=== PATIENT | female | born 1965 | race Caucasian/White ===

== ENCOUNTER 2016-04-11 10:41 | Outpatient (CLI) | payer OTHER | END 2016-04-11 10:42 | disposition home or self-care (01) | DX: M17.11 Unilateral primary osteoarthritis, right knee (principal) ==

== ENCOUNTER 2016-04-13 15:42 | Outpatient (CLI) | payer OTHER | END 2016-04-13 15:43 | disposition home or self-care (01) | DX: Z12.31 Encounter for screening mammogram for malignant neoplasm of breast (principal); Z80.3 Family history of malignant neoplasm of breast ==

== ENCOUNTER 2016-04-14 10:30 | Outpatient (CLI) | payer OTHER | END 2016-04-14 10:31 | disposition home or self-care (01) | DX: L03.211 Cellulitis of face (principal) ==

== ENCOUNTER 2016-04-25 10:43 | Outpatient (CLI) | payer OTHER | END 2016-04-25 10:44 | disposition home or self-care (01) | DX: G47.8 Other sleep disorders (principal); R06.83 Snoring; R53.83 Other fatigue ==

== ENCOUNTER 2016-05-11 15:15 | Outpatient (CLI) | payer OTHER | END 2016-05-11 15:16 | disposition home or self-care (01) | DX: R07.89 Other chest pain (principal) ==

== ENCOUNTER 2016-07-18 07:49 | Outpatient (CLI) | payer OTHER | END 2016-07-18 07:50 | disposition home or self-care (01) | DX: D17.1 Benign lipomatous neoplasm of skin and subcutaneous tissue of trunk (principal) ==

== ENCOUNTER 2017-07-17 08:00 | Outpatient (CLI) | payer OTHER ==
[2017-07-17 12:49] LABS: BASOPHILS # (AUTO) 0.1 10^3/uL (0.0-0.1); BASOPHILS % (AUTO) 0.9 %; EOSINOPHILS # (AUTO) 0.1 10^3/uL (0.0-0.7); EOSINOPHILS % (AUTO) 1.6 %; HGB - HEMOGLOBIN 12.6 g/dL (12.0-16.0); LYMPHOCYTES # (AUTO) 1.4 10^3/uL (1.5-3.5); MEAN CORPUSCULAR HEMOGLOBIN 27.4 pg (27.0-31.0); MEAN CORPUSCULAR HGB CONC 32.7 g/dL (32.0-36.0); MEAN CORPUSCULAR VOLUME 83.7 fL (81.0-99.0); MEAN PLATELET VOLUME 8.3 fL (7.9-10.8); MONOCYTES # (AUTO) 0.6 10^3/uL (0.0-1.0); NEUTROPHILS # (AUTO) 4.1 10^3/uL (1.5-6.6); NEUTROPHILS % (AUTO) 65.5 %; PLT - PLATELET COUNT 276 10^3/uL (130-450); RED CELL DISTRIBUTION WIDTH 15.7 % (12.0-15.0); WHITE BLOOD COUNT 6.3 x10^3/uL (4.8-10.8)
[2017-07-17 12:56] LABS: ALBUMIN 3.7 g/dL (3.2-5.5); ALBUMIN/GLOBULIN RATIO 1.2 (1.0-2.2); ALKALINE PHOSPHATASE 60 IU/L (42-121); ALT ALANINE AMINOTRANSFERASE 15 IU/L (10-60); AST ASPARTATE AMINOTRANSFERASE 14 IU/L (10-42); BILIRUBIN,TOTAL 0.6 mg/dL (0.2-1.0); BUN - BLOOD UREA NITROGEN 15 mg/dL (6-20); CALCIUM 8.4 mg/dL (8.5-10.3); CARBON DIOXIDE - CO2 30 mmol/L (21-32); CHLORIDE 102 mmol/L (101-111); CHOLESTEROL 196 mg/dL; CREATININE 0.6 mg/dL (0.4-1.0); GFR - MDRD 106 (>89); GLUCOSE 106 mg/dL (70-100); HDL CHOLESTEROL 39 mg/dL; LDL CHOLESTEROL,CALCULATED 130 mg/dL; LDL/HDL RATIO 3.3 (<4.4); SODIUM 138 mmol/L (135-145); TOTAL PROTEIN 6.8 g/dL (6.7-8.2); VLDL CHOLESTEROL 27 mg/dL
[2017-07-17 13:00] LABS: HB2 TOTAL 13.6 g/dL; HEMOGLOBIN A1C 0.49 g/dL; HEMOGLOBIN A1C % 5.4 % (4.6-6.2)
== END 2017-07-17 08:01 | disposition home or self-care (01) ==
LOC: LAB.WCP 08:00
PROVIDERS: ATTEND Family Medicine
DX: I10 Essential (primary) hypertension (principal); E66.01 Morbid (severe) obesity due to excess calories
CPT/HCPCS: 36415; 80053; 80061; 83036; 83721; 84443; 85025

== ENCOUNTER 2017-08-02 23:03 | Emergency (ER) | payer OTHER ==
[2017-08-02] MEDS ORDERED: diphenhydrAMINE INJ 50 MG/ML VIAL IVP STA (23:18)
[2017-08-02] MEDS ORDERED: SODIUM CHLORIDE 0.9% 1,000 ML IV ONE (23:18)
[2017-08-02] MEDS ORDERED: KETOROLAC 60 MG/2 ML VIAL IVP STA (23:18)
[2017-08-02] MEDS ORDERED: ACETAMINOPHEN 325 MG TABLET PO STA (23:18)
[2017-08-02] MEDS ORDERED: METOCLOPRAMIDE 10 MG/2 ML VIAL IVP STA (23:18)
--- NOTE | 2017-08-03 01:08 | ED Physician Documentation ---
PD HPI HEADACHE - Stated complaint Stated Complaint: MIGRAINE - Chief complaint Chief Complaint: Neuro - History obtained from History obtained from: Patient, Family - History of Present Illness Timing - onset: Today Timing - onset during: Rest Timing - details: Gradual onset, Still present Worst headache ever?: Worst headache ever? (yes) Location: Global Quality: Aching. No: Thunderclap Associated symptoms: Nausea. No: Fever, Stiff neck, Vomiting, Weakness, Syncope , Seizure Worsened by: Light, Noise Similar symptoms before: No diagnosis Recently seen: Not recently seen - Additional information Additional information: Patient is a 51 year old female with a history of headaches who is presenting to the emergency department for a headache. patient states that she was at work when she started to develop a dull headache. patient reports that that pain got progressively worse so she went home. She tried taking an excedrin but the pain did not go away so she came to the emergency department for evaluation. Review of Systems Constitutional: denies: Fever, Chills, Myalgias Eyes: reports: Photophobia Cardiac: denies: Chest pain / pressure, Palpitations GI: reports: Nausea. denies: Vomiting : reports: Reviewed and negative Skin: denies: Rash, Lesions Musculoskeletal: denies: Neck pain Neurologic: reports: Headache. denies: Generalized weakness, Focal weakness, Numbness, Syncope, Altered mental status, Head injury, LOC Immunocompromised: denies: Immunocompromised PD PAST MEDICAL HISTORY - Past Medical History Cardiovascular: Hypertension, High cholesterol Psych: Depression, Anxiety - Past Surgical History Past Surgical History: Yes - Present Medications Home Medications: Ambulatory Orders Medication Instructions Recorded Confirmed Carvedilol [Coreg] 12.5 mg PO DAILY 07/26/12 01/05/15 Hydrochlorothiazide 25 mg PO DAILY 07/26/12 01/05/15 Lorazepam [Ativan] 1 mg PO Q6-8H PRN #20 tablet 07/26/12 01/05/15 Potassium Chloride 10 meq PO DAILY #20 capsule.er 07/26/12 01/05/15 Statin 01/05/15 01/05/15 - Allergies Allergies/Adverse Reactions: Allergies Allergy/AdvReac Type Severity Reaction Status Date / Time No Known Drug Allergies Allergy Verified 08/02/17 23:10 - Social History Does the pt smoke?: No Smoking Status: Never smoker Does the pt drink ETOH?: Yes Does the pt have substance abuse?: No - Immunizations Immunizations are current?: Yes - POLST Patient has POLST: No PD ED PE NORMAL - HEENT HEENT: Atraumatic - Neck Neck: Supple, no meningeal sign - Cardiac Cardiac: RRR - Respiratory Respiratory: No respiratory distress - Abdomen Abdomen: Soft - Derm Derm: Normal color, Warm and dry, No rash - Extremities Extremities: No deformity - Neuro Neuro: Alert and oriented X 3, 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, No motor deficit, No sensory deficit, Normal speech Eye Opening: Spontaneous Motor: Obeys Commands Verbal: Oriented GCS Score: 15 PD ED PE EXPANDED - General General: Alert, In Pain - HEENT HEENT: Dry mucous membranes Results - Vitals Vitals: Vital Signs - 24 hr 08/02/17 08/03/17 23:06 01:09 Temperature 36.9 C 36.8 C Heart Rate 88 78 Respiratory 22 18 Rate Blood Pressure 162/83 H 142/74 H O2 Saturation 96 99 Oxygen O2 Source Room air PD MEDICAL DECISION MAKING - ED course Complexity details: reviewed old records, reviewed results, re-evaluated patient , considered differential, d/w patient, d/w family ED course: Patient was seen and examined at bedside. IV access was gained and patient was treated with toradol, reglan, benadryl, tylenol and a liter of fluid. Upon re- evaluation patient was feeling much better. patient stated that her headache had resolved and that she wanted to go home. While serious etiologies of the patient's headache including SAH and meningitis were considered they were unlikely at this time. patient required no further work up at this time and was stable for discharge with outpatient follow up. Departure - Departure Disposition: 01 Home, Self Care Clinical Impression: Migraine Condition: Good Instructions: ED Headache Migraine Follow-Up: primary,care provider [Other] - Tomorrow Comments: Your symptoms today are being caused by a migraine headache. Two of the biggest triggers are dehyration and lack of sleep. Make sure you stay well hydrated and get plenty of rest. You should keep a headache journal if your symptoms become more frequent. You should follow up with your doctor. You may return to the emergency department at any time for new, worsening or uncontrollable symptoms. Discharge Date/Time: 08/03/17 01:14
[2017-08-03 01:09] VITALS: BP 142/74
== END 2017-08-03 01:14 | disposition home or self-care (01) ==
LOC: ED 23:03
DX: G43.909 Migraine, unspecified, not intractable, without status migrainosus (principal); I10 Essential (primary) hypertension
CPT/HCPCS: 96361; 96374; 96375; 99283; 99284; A9270; J1200; J2765

== ENCOUNTER 2018-07-10 11:26 | Outpatient (CLI) | payer OTHER ==
--- NOTE | 2018-07-10 12:43 | Mammography Report ---
Reason: SCREENING MAMMO Procedure Date: 07/10/2018 Accession Number: [id number] / [id number] Procedure: MGN - Screening Mammo Dig Bilat CPT Code: FULL RESULT: EXAM: Screening Mammo Dig Bilat DATE: 07/10/2018 11:59 AM CLINICAL HISTORY: Mother with history of breast cancer. For routine screening. TECHNIQUE: (B) - Bilateral CC and MLO views were obtained. COMPARISON: 04/13/2016, 11/13/2014 and 05/01/2013 PARENCHYMAL PATTERN: (A) - The breasts demonstrate scattered fibroglandular densities bilaterally. FINDINGS: There is no significant interval change. There are no suspicious masses, calcifications, or areas of distortion. IMPRESSION: Negative examination. BI-RADS category 1. RECOMMENDATION: (ANNUAL) - Recommend routine annual screening mammography. BI-RADS CATEGORY: (1) - Negative. STANDARD QUALIFYING STATEMENTS: 1. This examination was not reviewed with the aid of Computer-Aided Detection (CAD). 2. A negative or benign imaging report should not preclude biopsy if clinically suspicious findings are present. 3. Dense breasts may obscure an underlying neoplasm. 4. This examination was reviewed without the aid of 3D breast imaging (tomosynthesis).
== END 2018-07-10 11:27 | disposition home or self-care (01) ==
LOC: DI.N 11:26
DX: Z12.31 Encounter for screening mammogram for malignant neoplasm of breast (principal); Z80.3 Family history of malignant neoplasm of breast
CPT/HCPCS: 77067

== ENCOUNTER 2019-04-22 07:03 | Outpatient (CLI) | payer OTHER ==
[2019-04-22 11:55] LABS: BASOPHILS % (AUTO) 0.8 %; EOSINOPHILS # (AUTO) 0.1 10^3/uL (0.0-0.7); EOSINOPHILS % (AUTO) 2.2 %; HGB - HEMOGLOBIN 13.9 g/dL (12.0-16.0); LYMPHOCYTES # (AUTO) 1.4 10^3/uL (1.5-3.5); LYMPHOCYTES % (AUTO) 27.1 %; MEAN CORPUSCULAR HEMOGLOBIN 29.1 pg (27.0-31.0); MEAN PLATELET VOLUME 10.1 fL (7.9-10.8); MONOCYTES # (AUTO) 0.8 10^3/uL (0.0-1.0); MONOCYTES % (AUTO) 14.9 %; NEUTROPHILS # (AUTO) 2.8 10^3/uL (1.5-6.6); NEUTROPHILS % (AUTO) 54.8 %; PLT - PLATELET COUNT 246 10^3/uL (130-450); RED BLOOD COUNT 4.77 10^6/uL (4.20-5.40); RED CELL DISTRIBUTION WIDTH 14.3 % (12.0-15.0); WHITE BLOOD COUNT 5.1 x10^3/uL (4.8-10.8)
[2019-04-22 12:29] LABS: HB2 TOTAL 13.7 g/dL; HEMOGLOBIN A1C 0.46 g/dL; HEMOGLOBIN A1C % 5.2 % (4.6-6.2)
[2019-04-22 12:37] LABS: ALBUMIN 3.8 g/dL (3.2-5.5); ALBUMIN/GLOBULIN RATIO 1.2 (1.0-2.2); ALKALINE PHOSPHATASE 54 IU/L (42-121); ALT ALANINE AMINOTRANSFERASE 20 IU/L (10-60); AST ASPARTATE AMINOTRANSFERASE 18 IU/L (10-42); BILIRUBIN,TOTAL 0.6 mg/dL (0.2-1.0); BUN - BLOOD UREA NITROGEN 21 mg/dL (6-20); CALCIUM 8.7 mg/dL (8.5-10.3); CARBON DIOXIDE - CO2 27 mmol/L (21-32); CHLORIDE 104 mmol/L (101-111); CHOL/HDL RATIO 4.2 (<4.4); CHOLESTEROL 201 mg/dL; CREATININE 0.6 mg/dL (0.4-1.0); GFR - MDRD 105 (>89); GLUCOSE 102 mg/dL (70-100); HDL CHOLESTEROL 48 mg/dL; LDL CHOLESTEROL,CALCULATED 136 mg/dL; LDL/HDL RATIO 2.8 (<4.4); SODIUM 139 mmol/L (135-145); TOTAL PROTEIN 7.1 g/dL (6.7-8.2); VLDL CHOLESTEROL 17 mg/dL
== END 2019-04-22 23:59 | disposition home or self-care (01) ==
LOC: LAB.WCP 07:03
PROVIDERS: ATTEND Family Medicine
DX: I10 Essential (primary) hypertension (principal); E66.01 Morbid (severe) obesity due to excess calories
CPT/HCPCS: 36415; 80053; 80061; 83036; 83721; 84443; 85025

== ENCOUNTER 2020-07-22 08:00 | Outpatient (CLI) | payer OTHER | END 2020-07-22 23:59 | disposition home or self-care (01) | LOC: LAB.N 08:00 | PROVIDERS: ATTEND Family Medicine | DX: N61.1 Abscess of the breast and nipple (principal) | CPT/HCPCS: 87070; 87077; 87181; 87205 ==

== ENCOUNTER 2020-12-22 10:18 | Outpatient (CLI) | payer OTHER ==
--- NOTE | 2020-12-23 09:33 | Mammography Report ---
BILATERAL DIGITAL SCREENING MAMMOGRAM 3D/2D: 12/22/2020 CLINICAL: Family history of breast cancer. Routine screening. Comparison is made to exams dated: 07/10/2018 mammogram, 04/13/2016 mammogram, 11/13/2014 mammogram, and mammogram - [facility]. There are scattered fibroglandular elements in vu th breasts. No significant masses, calcifications, or other findings are seen in either breast. There has been no significant interval change. IMPRESSION: NEGATIVE There is no mammographic evidence of malignancy. A 1 year screening mammogram is recommended. This exam was interpreted at Station ID: [id number]. NOTE: For mammograms, a report in lay terms will be sent to the patient. Approximately 15% of breast malignancies will not be visualized mammographically. In the management of a palpable breast mass, a negative mammogram must not discourage biopsy of a clinically suspicious lesion. Electronically Signed By: Gopal Diaz M.D., jr/silvana:12/22/2020 11:46:22 ACR BI-RADS Category 1: Negative 3341F PARENCHYMAL PATTERN: (A) - The breast(s) demonstrate(s) scattered fibroglandular densities. BI-RADS CATEGORY: (1) - 1 RECOMMENDATION: (ANNUAL) - Recommend routine annual screening mammography. [id number] 1 year screening LATERALITY: (B)
== END 2020-12-22 10:19 | disposition home or self-care (01) ==
LOC: DI.N 10:18
DX: Z12.31 Encounter for screening mammogram for malignant neoplasm of breast (principal); Z80.3 Family history of malignant neoplasm of breast

== ENCOUNTER 2021-02-04 16:40 | Outpatient (CLI) | payer OTHER | END 2021-02-04 23:59 | disposition critical access hospital (66) | LOC: EMS 16:40 | DX: R06.09 Other forms of dyspnea (principal); R53.83 Other fatigue; R10.9 Unspecified abdominal pain; K59.00 Constipation, unspecified; R14.0 Abdominal distension (gaseous) | CPT/HCPCS: A0425; A0427 ==

== ENCOUNTER 2021-02-04 17:03 | Emergency (ER) | payer OTHER ==
[2021-02-04 17:34] LABS: BASOPHILS # (AUTO) 0.1 10^3/uL (0.0-0.1); BASOPHILS % (AUTO) 0.7 %; EOSINOPHILS # (AUTO) 0.1 10^3/uL (0.0-0.7); EOSINOPHILS % (AUTO) 1.6 %; HCT - HEMATOCRIT 39.5 % (37.0-47.0); HGB - HEMOGLOBIN 11.4 g/dL (12.0-16.0); LYMPHOCYTES % (AUTO) 14.1 %; MEAN CORPUSCULAR HGB CONC 28.9 g/dL (32.0-36.0); MEAN CORPUSCULAR VOLUME 86.6 fL (81.0-99.0); MEAN PLATELET VOLUME 9.1 fL (7.9-10.8); MONOCYTES # (AUTO) 0.8 10^3/uL (0.0-1.0); MONOCYTES % (AUTO) 11.1 %; NEUTROPHILS # (AUTO) 4.9 10^3/uL (1.5-6.6); NEUTROPHILS % (AUTO) 72.2 %; PLT - PLATELET COUNT 253 10^3/uL (130-450); RED BLOOD COUNT 4.56 10^6/uL (4.20-5.40); RED CELL DISTRIBUTION WIDTH 18.1 % (12.0-15.0); WHITE BLOOD COUNT 6.8 x10^3/uL (4.8-10.8)
[2021-02-04 17:36] LABS: SLIDE REVIEW? Indicated
--- NOTE | 2021-02-04 17:44 | ED Physician Documentation ---
History of Present Illness - Stated complaint Stated Complaint: SOA - Chief complaint Chief Complaint: Abd Pain - History obtained from History obtained from: Patient - History of Present Illness Timing: How many weeks ago (2) Pain level max: 5 Pain level now: 5 - Additonal information Additional information: Patient is a 55-year-old female who presents to the emergency department after being seen at the walk-in clinic earlier today for 2 weeks of abdominal pain and bloating. She is super morbidly obese. She has been on a keto diet and weight loss teas for the past 2 weeks. States she feels constipated. At the walk-in clinic they found her to be hypoxic and sent her here. Patient is not short of breath. No difficulty walking. Has not had similar symptoms previously. Has never had a sleep study. No fevers. No chills. No coughing. Review of Systems Ten Systems: 10 systems reviewed and negative Constitutional: denies: Fever, Chills Nose: denies: Rhinorrhea / runny nose, Congestion Respiratory: denies: Cough, Wheezing GI: denies: Vomiting, Diarrhea Skin: denies: Rash Musculoskeletal: denies: Neck pain, Back pain Neurologic: denies: Headache PD PAST MEDICAL HISTORY - Past Medical History Cardiovascular: Hypertension, High cholesterol Psych: Depression, Anxiety - Past Surgical History Past Surgical History: Yes - Present Medications Home Medications: Ambulatory Orders Medication Instructions Recorded Confirmed Carvedilol [Coreg] 12.5 mg PO DAILY 07/26/12 01/05/15 Hydrochlorothiazide 25 mg PO DAILY 07/26/12 01/05/15 Lorazepam [Ativan] 1 mg PO Q6-8H PRN #20 tablet 07/26/12 01/05/15 Potassium Chloride 10 meq PO DAILY #20 capsule.er 07/26/12 01/05/15 Statin 01/05/15 01/05/15 - Allergies Allergies/Adverse Reactions: Allergies Allergy/AdvReac Type Severity Reaction Status Date / Time No Known Drug Allergies Allergy Verified 02/04/21 17:14 - Social History Does the pt smoke?: No Smoking Status: Never smoker Does the pt drink ETOH?: Yes Does the pt have substance abuse?: No - Immunizations Immunizations are current?: Yes - POLST Patient has POLST: No PD ED PE NORMAL - Vitals Vital signs reviewed: Yes - General General: Alert and oriented X 3, No acute distress - HEENT HEENT: Moist mucous membranes - Neck Neck: Supple, no meningeal sign - Cardiac Cardiac: RRR, Strong equal pulses - Respiratory Respiratory: No respiratory distress, Clear bilaterally - Abdomen Abdomen: Soft, Non tender, Non distended - Derm Derm: Warm and dry - Extremities Extremities: Other (2+ pitting edema bilateral lower extremities. There is also pitting edema on the abdomen.) - Neuro Neuro: Alert and oriented X 3 - Psych Psych: Normal mood, Normal affect Results - Vitals Vitals: Vital Signs - 24 hr 02/04/21 02/04/21 02/04/21 17:05 17:44 17:56 Temperature 36.2 C L Heart Rate 79 74 Respiratory 17 22 Rate Blood Pressure 184/112 H 181/96 H O2 Saturation 75 L 86 L 02/04/21 02/04/21 18:14 18:30 Temperature 36.5 C 36.5 C Heart Rate 72 91 Respiratory 15 25 H Rate Blood Pressure 180/98 H 200/77 H O2 Saturation 82 L 84 L Oxygen O2 Source Room air - EKG (time done) 1741 Rate: Rate (enter#) (69) Rhythm: NSR [place]: Normal Intervals: Normal GA QRS: Normal Ischemia: Normal ST segments - Labs Labs: Laboratory Tests 02/04/21 02/04/21 02/04/21 17:29 17:29 17:29 WBC 6.8 RBC 4.56 Hgb 11.4 L Hct 39.5 MCV 86.6 MCH 25.0 L MCHC 28.9 L RDW 18.1 H Plt Count 253 MPV 9.1 Neut # (Auto) 4.9 Lymph # (Auto) 1.0 L Dunn # (Auto) 0.8 Eos # (Auto) 0.1 Baso # (Auto) 0.1 Absolute Nucleated RBC 0.00 Nucleated RBC % 0.0 Manual Slide Review Indicated Platelet Estimate NORMAL (130-450,000) Platelet Morphology NORMAL APPEARANCE RBC Morph Micro Appear 1+ POIKILOCYTOSIS D-Dimer Bld Gas Analysis Time Sample Site ABG pH ABG pCO2 ABG pO2 ABG HCO3 ABG Total CO2 ABG O2 Saturation ABG Base Excess Juan Jose Test Room Air Sodium 143 Potassium 3.8 Chloride 99 L Carbon Dioxide 34 H Anion Gap 10.0 BUN 21 H Creatinine 0.9 Estimated GFR (MDRD) 65 L Glucose 100 Calcium 8.9 Total Bilirubin 0.5 AST 15 ALT 19 Alkaline Phosphatase 49 Troponin I High Sens 27.1 H* B-Natriuretic Peptide Total Protein 6.8 Albumin 3.7 Globulin 3.1 Albumin/Globulin Ratio 1.2 Lipase 24 02/04/21 02/04/21 02/04/21 17:29 17:47 18:06 WBC RBC Hgb Hct MCV MCH MCHC RDW Plt Count MPV Neut # (Auto) Lymph # (Auto) Dunn # (Auto) Eos # (Auto) Baso # (Auto) Absolute Nucleated RBC Nucleated RBC % Manual Slide Review Platelet Estimate Platelet Morphology RBC Morph Micro Appear D-Dimer 636.9 H Bld Gas Analysis Time 1811 Sample Site LEFT RADIAL ABG pH 7.37 ABG pCO2 55 H ABG pO2 42 L* ABG HCO3 31.1 H ABG Total CO2 32.8 H ABG O2 Saturation 75 L* ABG Base Excess 4.7 H Juan Jose Test POSITIVE Room Air YES Sodium Potassium Chloride Carbon Dioxide Anion Gap BUN Creatinine Estimated GFR (MDRD) Glucose Calcium Total Bilirubin AST ALT Alkaline Phosphatase Troponin I High Sens B-Natriuretic Peptide 534 H Total Protein Albumin Globulin Albumin/Globulin Ratio Lipase - Rads (name of study) chest X-ray Radiology: Final report received, EMP read contemporaneously, See rad report PD MEDICAL DECISION MAKING - ED course Complexity details: reviewed results, re-evaluated patient, considered differential, d/w patient ED course: Patient is a super morbidly obese 55-year-old female. Likely with obesity hypoventilation syndrome. Likely has sleep apnea as well that is undiagnosed. Does not use CPAP at home. She does have excessive daytime sleepiness, this has been worsening recently. She falls asleep easily at her desk during the day. She has a significantly elevated BNP, especially considering that her BMI is so high, the BNP is likely falsely low because of her increased neprilysin in her visceral fat. She has never been diagnosed with CHF before, she will likely need an echocardiogram. She would likely benefit from a sleep study as well. The cause of her heart failure could be secondary to her sleep apnea. At the time of signout, a CT angiogram of the chest is pending for possible PE. Patient will likely need transfer for new onset heart failure, hypoxia, diuresis and cardiac echo. Patient is signed out to the oncoming emergency department physician. Cardiomegaly and scattered ill-defined and groundglass opacities likely reflecting pulmonary edema. Recommend clinical and laboratory correlation to exclude underlying infection. Possible small left pleural effusion. Departure - Departure Clinical Impression: Carbon dioxide retention, Hypoxia Heart failure Qualifiers: Heart failure type: unspecified Heart failure chronicity: acute Qualified Code(s): I50.9 - Heart failure, unspecified Condition: Stable
[2021-02-04 17:51] LABS: ALBUMIN 3.7 g/dL (3.2-5.5); ALBUMIN/GLOBULIN RATIO 1.2 (1.0-2.2); BILIRUBIN,TOTAL 0.5 mg/dL (0.2-1.0); CALCIUM 8.9 mg/dL (8.5-10.3); CREATININE 0.9 mg/dL (0.4-1.0); POTASSIUM 3.8 mmol/L (3.5-5.0); TOTAL PROTEIN 6.8 g/dL (6.7-8.2)
[2021-02-04 17:53] LABS: PLATELET ESTIMATE, MANUAL NORMAL (130-450,000) (NORMAL); PLATELET MORPHOLOGY NORMAL APPEARANCE (NORMAL)
--- NOTE | 2021-02-04 17:54 | XRAY Report ---
PROCEDURE: Chest 1 View X-Ray INDICATIONS: hypoxia TECHNIQUE: One view of the chest was acquired. COMPARISON: 05/11/2016 FINDINGS: Surgical changes and devices: None. Lungs and pleura: No pneumothorax. Ill-defined widespread bilateral upper and lower lobe groundglass opacities and patchy perihilar consolidative opacity. There is retrocardiac opacity and cannot exclu de small left pleural effusion Mediastinum: Markedly enlarged cardiac silhouette Bones and chest wall: No suspicious bony lesions. Overlying soft tissues appear unremarkable. IMPRESSION: Cardiomegaly and scattered ill-defined and groundglass opacities likely reflecting pulmonary edema. R ecommend clinical and laboratory correlation to exclude underlying infection. Possible small left pleural effusion. Reviewed by: Conrado Harrell MD on 02/04/2021 5:52 PM PST Approved by: Conrado Harrell MD on 02/04/2021 5:52 PM [facility] Station ID: [id number]
[2021-02-04 18:14] LABS: ABG BASE EXCESS 4.7 mmol/L (-2.0-3.0); ABG HCO3 31.1 mmol/L (22.0-26.0); ABG PCO2 55 mmHg (34-45); ABG PH 7.37 (7.35-7.45); ABG TCO2 32.8 MMOL/L (21.0-29.0)
[2021-02-04 18:15] LABS: ALLEN TEST POSITIVE
[2021-02-04 18:17] LABS: ABG PO2 42 mmHg (80-100)
[2021-02-04 18:18] LABS: ABG OXYGEN SATURATION 75 % (94-98)
[2021-02-04] MEDS ORDERED: IOVERSOL 320 100 ML VIAL IVP ONE ×2 (18:41→19:13)
[2021-02-04] MEDS ORDERED: FUROSEMIDE 40 MG/4 ML VIAL IVP STA (18:51)
[2021-02-04 18:58] LABS: B. PARAPERTUSSIS- RESP PCR PAN NOT DETECTED; B. PERTUSSIS- RESP PCR PANEL NOT DETECTED; C. PNEUMONIAE- RESP PCR PANEL NOT DETECTED; CORONAVIRUS 229E-RESP PCR NOT DETECTED; CORONAVIRUS HKU1-RESP PCR NOT DETECTED; CORONAVIRUS NL63-RESP PCR NOT DETECTED; CORONAVIRUS OC43-RESP PCR NOT DETECTED; HUMAN METAPNEUMOVIRUS NOT DETECTED; INFLUENZA A- RESP PCR PANEL NOT DETECTED; INFLUENZA B - RESP PCR PANEL NOT DETECTED; M. PNEUMONIAE- RESP PCR PANEL NOT DETECTED; PARAINFLUENZA VIRUS 1 NOT DETECTED; PARAINFLUENZA VIRUS 2 NOT DETECTED; PARAINFLUENZA VIRUS 3 NOT DETECTED; PARAINFLUENZA VIRUS 4 NOT DETECTED; RHINOVIRUS/ENTEROVIRUS NOT DETECTED; RSV- RESP PCR PANEL NOT DETECTED; SARS-CoV-2 -RESP PCR PANEL NOT DETECTED
--- NOTE | 2021-02-04 20:06 | CT Report ---
PROCEDURE: ANGIO CHEST W/WO INDICATIONS: elevated d-dimer, hypoxia CONTRAST: IV CONTRAST: Optiray 320 ml: 80 PO CONTRAST: *NO PO CONTRAST TECHNIQUE: After the administration of intravenous contrast, 5 mm thick sections acquired from the pulmonary api shon to the posterior costophrenic angles. 7 mm thick coronal MIP reformats were acquired. For radia tion dose reduction, the following was used: automated exposure control, adjustment of mA and/or kV according to patient size. COMPARISON: None. FINDINGS: Markedly suboptimal evaluation secondary to body habitus. CHEST: Lungs: Scattered subsegmental scarring/atelectasis. No acute consolidation. Diffuse peribronchial cuf fing suggestive of nonspecific bronchitis and/or reactive airways disease. Pleura: No pleural effusion or pneumothorax. Heart: Normal. Lymph nodes: Normal. Thyroid: Grossly unremarkable Aorta: Normal in size. Pulmonary arteries: Suboptimal evaluation secondary to heterogeneous opacification as well as body adames bitus and associated noise artifact. No large or gross central filling defect however the lobar and s egmental pulmonary arteries not well evaluated Esophagus: Normal. Bones: Diffuse spondolytic changes and facet arthropathy. No compression fracture. Upper abdomen: Normal. IMPRESSION: No gross or large filling defect identified in the central pulmonary arteries however markedly subopt imal evaluation secondary to body habitus and poor contrast opacification of the lobar and segmental pulmonary arteries. Consider further risk stratification with lower extremity ultrasound for DVT as c linically necessary. Scattered subsegmental scarring/atelectasis. No acute consolidation. CLINICAL RECOMMENDATION STATEMENTS: In patients <35 years with an ITN detected on CT, MRI, or extrathyroidal ultrasound, the Committee re commends further evaluation with dedicated thyroid ultrasound if the nodule is "e1 cm and has no susp icious imaging features, and if the patient has normal life expectancy. In patients "e35 years with an ITN detected on CT, MRI, or extrathyroidal ultrasound, the Committee r ecommends further evaluation with dedicated thyroid ultrasound if the nodule is "e1.5 cm and has no s uspicious imaging features, and if the patient has normal life expectancy. (ACR, 2014) Reviewed by: Conrado Watt MD on 02/04/2021 8:05 PM PST Approved by: Conrado Watt MD on 02/04/2021 8:05 PM PST Station ID: [id number]
[2021-02-05 10:12] LABS: CARBOXYHEMOGLOBIN VENOUS 2.9 % (0-1.5); HEMOGLOBIN TOTAL, VENOUS WB 11.8 g/dL (12.0-18.0); METHEMOGLOBIN VENOUS 0.4 % (0-1.5)
[2021-02-05 10:13] LABS: VBG BASE EXCESS 6.9 mmol/L (-2 - +2); VBG HCO3 35.7 mmol/L (23-28); VBG OXYGEN SATURATION 93.1 % (60-80); VBG PCO2 75.5 mmHg (41-51); VBG PH 7.293 (7.31-7.41); VBG PO2 69.5 mmHg (25-47); VBG TOTAL CO2 38.1 mmol/L (24-29)
--- NOTE | 2021-02-05 10:27 | ED Physician Documentation ---
ED Addendum - Addendum Addendum: 02/05/21 10:26 Care assumed from overnight ED MD at shift change. Briefly this is a [age]-year-old woman who has no shortness of breath but was referred in for low pulse oximetry of unclear acuity. Found to have CO2 retention. D-dimer was high but subsequently CAT scan of the chest was negative although limited. Yesterday ABG was 7.37, 55, 42. Venous blood gas repeated this morning 7.29, 75, 69. Also noted that Dr. Rios had ordered a carboxyhemoglobin panel but it was not run, this morning her carboxyhemoglobin is 2.9. Discussed with patient. She does not seem narcotize to per se. She is sitting in bed comfortably looking at her phone. She does not appear tachypneic. We discussed putting her on BiPAP but discussed that if she were transferred, most facilities would require her to be in an ICU setting which she refused. She would like to go home. We will retrial her road test with pulse oximetry to see if her desaturations are better than yesterday. 02/05/21 11:01 Since the patient wanted to go home I asked the nurse to ambulate her off of supplemental oxygen. She quickly went down into the 40s on pulse oximetry. Discussed with her that these numbers mandated work-up and admission and she is agreeable. Recheck of troponin from last night is flat, 27 -> 24 -> 25 02/05/21 16:[address] word from Dr. Montalvo at [facility] that the patient was to be accepted to [facility] by Dr. Calles. Cobras are completed. She is stable for transport. Diagnosis: 1. CO2 retention 2. Hypoxemia 3. Morbid obesity Disposition: Transferred to [facility] for specialty care Condition: Fair
[2021-02-05 18:40] VITALS: BP 148/69
== END 2021-02-05 19:11 | disposition short-term general hospital (02) ==
LOC: EDUNIT# → ED 17:03
DX: E87.2 Acidosis (principal); R09.02 Hypoxemia; I11.0 Hypertensive heart disease with heart failure; I50.9 Heart failure, unspecified; E66.01 Morbid (severe) obesity due to excess calories; Z68.44 Body mass index [BMI] 60.0-69.9, adult; Z20.822 Contact with and (suspected) exposure to COVID-19
CPT/HCPCS: 0202U; 36415; 36600; 71045; 71275; 80053; 82375; 82803; 83690; 83880; 84484; 85025; 85379; 93005; 96374; 99285; Q9967

== ENCOUNTER 2021-03-21 13:42 | Inpatient (IN) | payer OTHER ==
[2021-03-21] MEDS ORDERED: FUROSEMIDE 100 MG/10 ML VIAL IVP STA (14:33)
--- NOTE | 2021-03-21 14:36 | ED Physician Documentation ---
PD HPI DYSPNEA - Stated complaint Stated Complaint: SOA/FATIGUE - Chief complaint Chief Complaint: Resp - History obtained from History obtained from: Patient - History of Present Illness Timing - onset: How many days ago (3) Timing - onset during: Rest Timing - duration: Days (3) Timing - details: Gradual onset, Still present Inciting event(s): Other (called by PMD to come to ED with CO2 retention.) Improved by: O2, Rest Worsened by: Exertion, Coughing Associated symptoms: Cough, Bilateral edema Similar symptoms before: Diagnosis (CHF) Recently seen: Emergency Dept, Admitted - Additional information Additional information: Morbidly obese 55-year-old female has been diagnosed with congestive heart failure recently and she was admitted at [facility] where she was diuresed, started on BIPAP and discharged on BIPAP. She has been using the BIPAP about 3 hours per night and continues to be symptomatic with exertion and at rest. She was asked by her PMD to come to the ED for CO2 retention. She is using 3.5 liter O2 at home. Review of Systems Constitutional: denies: Fever Eyes: denies: Decreased vision Ears: denies: Ear pain Nose: denies: Congestion Throat: denies: Sore throat Cardiac: denies: Chest pain / pressure, Palpitations Respiratory: reports: Dyspnea. denies: Cough GI: denies: Abdominal Pain, Nausea, Vomiting : denies: Dysuria, Frequency Skin: denies: Rash Musculoskeletal: denies: Neck pain, Back pain, Extremity pain Neurologic: denies: Generalized weakness, Focal weakness, Numbness PD PAST MEDICAL HISTORY - Past Medical History Cardiovascular: Hypertension, High cholesterol Psych: Depression, Anxiety - Past Surgical History Past Surgical History: Yes - Present Medications Home Medications: Ambulatory Orders Medication Instructions Recorded Confirmed Carvedilol [Coreg] 25 mg PO DAILY 07/26/12 01/05/15 Aspirin [[place] Aspirin] 81 mg PO DAILY 02/04/21 02/04/21 Hydralazine HCl 50 mg PO TID 02/04/21 02/04/21 Losartan Potassium [Cozaar] 100 mg PO DAILY 02/04/21 02/04/21 Meloxicam [Mobic] 15 mg PO DAILY 02/04/21 02/04/21 [place]-3/Dha/Epa/Fish Oil [Fish Oil 1 cap PO BID 02/04/21 02/04/21 1,000 mg Softgel] - Allergies Allergies/Adverse Reactions: Allergies Allergy/AdvReac Type Severity Reaction Status Date / Time No Known Drug Allergies Allergy Verified 03/21/21 13:55 - Social History Does the pt smoke?: No Smoking Status: Never smoker Does the pt drink ETOH?: Yes Does the pt have substance abuse?: No - Immunizations Immunizations are current?: Yes - POLST Patient has POLST: No PD ED PE NORMAL - Vitals Vital signs reviewed: Yes (tachypneic and hypertensive ) - General General: Alert and oriented X 3, Well developed/nourished, Other (tachypneic at rest pale lips ) - HEENT HEENT: Atraumatic, PERRL, EOMI - Neck Neck: Supple, no meningeal sign, No bony TTP - Cardiac Cardiac: RRR, No murmur - Respiratory Respiratory: Other (tachypneic at rest with diminished breath sounds. 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, No motor deficit, No sensory deficit, Normal speech Eye Opening: Spontaneous Motor: Obeys Commands Verbal: Oriented GCS Score: 15 - Psych Psych: Normal mood, Normal affect Results - Vitals Vitals: Vital Signs - 24 hr 03/21/21 03/21/21 03/21/21 13:49 13:55 15:55 Temperature 36.3 C L 36.5 C Heart Rate 77 77 70 Respiratory 28 H 28 H 24 Rate Blood Pressure 156/89 H 156/89 H 160/80 H O2 Saturation 93 93 96 03/21/21 17:00 Temperature Heart Rate 73 Respiratory 22 Rate Blood Pressure 164/84 H O2 Saturation 97 Oxygen O2 Source Nasal cannula - EKG (time done) 1413 Rate: Rate (enter#) (80) Rhythm: NSR Intervals: Prolonged QT Other comments: Other comments (RSR') Compare to prior EKG: Changed from prior EKG (SPT 02-04-21 the QTc is closer to defined prolongation. ) Computer interpretation: Agree with computer - Labs Labs: Laboratory Tests 03/21/21 03/21/21 03/21/21 14:43 14:43 14:43 WBC 5.4 RBC 4.02 L Hgb 10.1 L Hct 36.2 L MCV 90.0 MCH 25.1 L MCHC 27.9 L RDW 22.2 H Plt Count 195 MPV 8.8 Neut # (Auto) 4.0 Lymph # (Auto) 0.8 L [place] # (Auto) 0.5 Eos # (Auto) 0.0 Baso # (Auto) 0.0 Absolute Nucleated RBC 0.00 Nucleated RBC % 0.0 VBG pH VBG pCO2 VBG pO2 VBG HCO3 VBG Total CO2 VBG O2 Saturation VBG Base Excess Sodium 144 Potassium 3.4 L Chloride 89 L Carbon Dioxide > 45 H* Anion Gap 9.0 BUN 14 Creatinine 0.6 Estimated GFR (MDRD) 104 Glucose 108 H Calcium 9.0 Total Bilirubin 1.1 H AST 15 ALT 12 Alkaline Phosphatase 56 B-Natriuretic Peptide 731 H Total Protein 7.0 Albumin 3.7 Globulin 3.3 Albumin/Globulin Ratio 1.1 Lipase 20 L 03/21/21 16:32 WBC RBC Hgb Hct MCV MCH MCHC RDW Plt Count MPV Neut # (Auto) Lymph # (Auto) [place] # (Auto) Eos # (Auto) Baso # (Auto) Absolute Nucleated RBC Nucleated RBC % VBG pH 7.349 VBG pCO2 86.2 H VBG pO2 26.5 VBG HCO3 46.4 H VBG Total CO2 49.1 H VBG O2 Saturation 49.3 L VBG Base Excess 17.0 H Sodium Potassium Chloride Carbon Dioxide Anion Gap BUN Creatinine Estimated GFR (MDRD) Glucose Calcium Total Bilirubin AST ALT Alkaline Phosphatase B-Natriuretic Peptide Total Protein Albumin Globulin Albumin/Globulin Ratio Lipase - Rads (name of study) chest Radiology: Prelim report reviewed (Impression: Cardiomegaly and increased vascularity suggestive of edema), EMP read indepedently, See rad report Procedures - IVC sono (time) 1428 Bedside IVC sono: IVC measures (cm) (2.62), IVC collapsed c insp (cm) (2.21), High CVP, Fluid overload PD MEDICAL DECISION MAKING - ED course Complexity details: reviewed old records, reviewed results, re-evaluated patient, considered differential, d/w patient ED course: 55-year-old female with a history of congestive heart failure is on oxygen at home and she has been asked to come into the emergency department for elevated carbon dioxide levels. She has had to increase her oxygen to maintain her saturations and here in the emergency department she is found to be in failure on interrogation of the inferior vena cava. Her vessel is 2.62 cm in diameter and only collapses to 2.2 cm with respiration. She is administered intravenous Lasix 80 mg. She has urine out put and feels some improved but is tachypneic at rest and with exertion. A venous blood gas is obtained and shows a pCO2 of 86.2 with a pH of 7.349. Respiratory therapy is consulted in the case and sets up the BIPAP in the ED. Hospitalist is consulted. Departure - Departure Disposition: ED Place in Observation Clinical Impression: Carbon dioxide retention Congestive heart failure Qualifiers: Heart failure type: unspecified Heart failure chronicity: acute on chronic Qualified Code(s): I50.9 - Heart failure, unspecified
[2021-03-21 14:53] LABS: BASOPHILS % (AUTO) 0.7 %; EOSINOPHILS % (AUTO) 0.7 %; HCT - HEMATOCRIT 36.2 % (37.0-47.0); HGB - HEMOGLOBIN 10.1 g/dL (12.0-16.0); LYMPHOCYTES # (AUTO) 0.8 10^3/uL (1.5-3.5); LYMPHOCYTES % (AUTO) 14.3 %; MEAN CORPUSCULAR HEMOGLOBIN 25.1 pg (27.0-31.0); MEAN CORPUSCULAR HGB CONC 27.9 g/dL (32.0-36.0); MEAN PLATELET VOLUME 8.8 fL (7.9-10.8); MONOCYTES # (AUTO) 0.5 10^3/uL (0.0-1.0); MONOCYTES % (AUTO) 9.5 %; NEUTROPHILS % (AUTO) 73.9 %; PLT - PLATELET COUNT 195 10^3/uL (130-450); RED BLOOD COUNT 4.02 10^6/uL (4.20-5.40); RED CELL DISTRIBUTION WIDTH 22.2 % (12.0-15.0); WHITE BLOOD COUNT 5.4 x10^3/uL (4.8-10.8)
--- NOTE | 2021-03-21 15:02 | XRAY Report ---
PROCEDURE: Chest 1 View X-Ray INDICATIONS: dyspnea TECHNIQUE: One view of the chest was acquired. COMPARISON: Chest x-ray 02/04/2021 FINDINGS: Surgical changes and devices: None. Lungs and pleura: There is increased pulmonary vascularity similar to prior exam. Left base is obscur ed by markedly enlarged cardiac silhouette. Mediastinum: Mediastinal contours appear normal. Heart size is enlarged. Bones and chest wall: No suspicious bony lesions. Overlying soft tissues appear unremarkable. IMPRESSION: Cardiomegaly and increased vascularity suggestive of edema. Reviewed by: Julissa Singer MD on 03/21/2021 3:01 PM [facility] Approved by: Julissa Singer MD on 03/21/2021 3:01 PM PST Station ID: [id number]
[2021-03-21 15:04] LABS: ALBUMIN 3.7 g/dL (3.2-5.5); ALBUMIN/GLOBULIN RATIO 1.1 (1.0-2.2); ALKALINE PHOSPHATASE 56 IU/L (42-121); ALT ALANINE AMINOTRANSFERASE 12 IU/L (10-60); AST ASPARTATE AMINOTRANSFERASE 15 IU/L (10-42); BILIRUBIN,TOTAL 1.1 mg/dL (0.2-1.0); BUN - BLOOD UREA NITROGEN 14 mg/dL (6-20); CHLORIDE 89 mmol/L (101-111); CREATININE 0.6 mg/dL (0.4-1.0); GFR - MDRD 104 (>89); GLUCOSE 108 mg/dL (70-100); LIPASE 20 U/L (22-51); POTASSIUM 3.4 mmol/L (3.5-5.0); SODIUM 144 mmol/L (135-145)
[2021-03-21 15:05] LABS: CARBON DIOXIDE - CO2 > 45 mmol/L (21-32)
[2021-03-21 16:39] LABS: VBG HCO3 46.4 mmol/L (23-28); VBG OXYGEN SATURATION 49.3 % (60-80); VBG PCO2 86.2 mmHg (41-51); VBG PH 7.349 (7.31-7.41); VBG PO2 26.5 mmHg (25-47); VBG TOTAL CO2 49.1 mmol/L (24-29)
[2021-03-21] MEDS ORDERED: ONDANSETRON ODT 4 MG TABLET TL PRN (18:30)
[2021-03-21] MEDS ORDERED: ONDANSETRON 4 MG/2 ML VIAL IVP PRN (18:30)
[2021-03-21] MEDS ORDERED: oxyCODONE 5 MG TABLET PO PRN (18:30)
--- NOTE | 2021-03-21 18:30 | HISTORY & PHYSICAL EXAMINATION ---
History - Past Medical History Cardiovascular: reports: Hypertension, High cholesterol Psych: reports: Depression, Anxiety MRSA Hx?: No - POLST Patient has POLST: No Meds/Allgy - Home Medications Home Medications: Ambulatory Orders Medication Instructions Recorded Confirmed Carvedilol [Coreg] 25 mg PO DAILY 07/26/12 01/05/15 Aspirin [[place] Aspirin] 81 mg PO DAILY 02/04/21 02/04/21 Hydralazine HCl 50 mg PO TID 02/04/21 02/04/21 Losartan Potassium [Cozaar] 100 mg PO DAILY 02/04/21 02/04/21 Meloxicam [Mobic] 15 mg PO DAILY 02/04/21 02/04/21 [place]-3/Dha/Epa/Fish Oil [Fish Oil 1 cap PO BID 02/04/21 02/04/21 1,000 mg Softgel] - Allergies Allergies/Adverse Reactions: Allergies Allergy/AdvReac Type Severity Reaction Status Date / Time No Known Drug Allergies Allergy Verified 03/21/21 13:55 Exam - Vital Signs Vital Signs: Vital Signs x48h Temp Pulse Resp BP Pulse Ox 03/21/21 17:00 73 22 164/84 H 97 03/21/21 15:55 70 24 160/80 H 96 03/21/21 13:55 36.5 C 77 28 H 156/89 H 93 03/21/21 13:49 36.3 C L 77 28 H 156/89 H 93 Conclusion/Plan - Lab Results Fish Bones: 03/21/21 14:43 03/21/21 14:43
[2021-03-21 18:55] LABS: B. PARAPERTUSSIS- RESP PCR PAN NOT DETECTED; B. PERTUSSIS- RESP PCR PANEL NOT DETECTED; C. PNEUMONIAE- RESP PCR PANEL NOT DETECTED; CORONAVIRUS 229E-RESP PCR NOT DETECTED; CORONAVIRUS HKU1-RESP PCR NOT DETECTED; CORONAVIRUS NL63-RESP PCR NOT DETECTED; CORONAVIRUS OC43-RESP PCR NOT DETECTED; HUMAN METAPNEUMOVIRUS NOT DETECTED; INFLUENZA A- RESP PCR PANEL NOT DETECTED; INFLUENZA B - RESP PCR PANEL NOT DETECTED; M. PNEUMONIAE- RESP PCR PANEL NOT DETECTED; PARAINFLUENZA VIRUS 1 NOT DETECTED; PARAINFLUENZA VIRUS 2 NOT DETECTED; PARAINFLUENZA VIRUS 3 NOT DETECTED; PARAINFLUENZA VIRUS 4 NOT DETECTED; RHINOVIRUS/ENTEROVIRUS NOT DETECTED; RSV- RESP PCR PANEL NOT DETECTED; SARS-CoV-2 -RESP PCR PANEL NOT DETECTED
--- NOTE | 2021-03-21 20:09 | HISTORY & PHYSICAL EXAMINATION ---
Chief Complaint - Chief Complaint Chief Complaint: SOB, told to come to ER by PCP office History of Present Illness - Admitted From Admitted From:: ED - History Obtained From History obtained from: ED provider and EMR reviewed and from the patient - History of Present Illness HPI Comment/Other: This is a 55 y/o WF with morbid obesity (BMI 65), HTN, anxiety, and recently di agnosed with CHF when hospitalized at [facility] in Jan 2021 (and we do not know if this is systolic or diastolic heart failure), and was sent home with new oxygen and a new BIPAP which she stated she uses only part of the night because she is claustrophobic. Her O2 order is set at 3.5 L continuously. She had bloodwork through her PCP office and results done recently were abnormal and she was contacted today and told to go to the ER. Here the BMP showed high bicarb and an ABG showed compensated respiratory acidosis (she has CO2 retention with a pCO2 of 83 on this ABG). She described being SOB and her CXR shows vascular congestion. She is being placed in Observation to administer iv diuretics, obtain the discharge summary from [facility] regarding LVEF and to provide CPAP/BIPAP treatment. 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 Does not smoke, drinks rarely. - Substance History Use: Uses substance without health or social issues: Alcohol - POLST Patient has POLST: No Meds/Allgy - Home Medications Home Medications: Ambulatory Orders Medication Instructions Recorded Confirmed Carvedilol [Coreg] 25 mg PO DAILY 07/26/12 01/05/15 Aspirin [[place] Aspirin] 81 mg PO DAILY 02/04/21 02/04/21 Hydralazine HCl 50 mg PO TID 02/04/21 02/04/21 Losartan Potassium [Cozaar] 100 mg PO DAILY 02/04/21 02/04/21 Meloxicam [Mobic] 15 mg PO DAILY 02/04/21 02/04/21 [place]-3/Dha/Epa/Fish Oil [Fish Oil 1 cap PO BID 02/04/21 02/04/21 1,000 mg Softgel] Furosemide [Lasix] 20 mg PO DAILY 03/21/21 03/21/21 Potassium Chloride [Micro-K] 10 meq PO 0800 03/21/21 03/21/21 - Allergies Allergies/Adverse Reactions: Allergies Allergy/AdvReac Type Severity Reaction Status Date / Time No Known Drug Allergies Allergy Verified 03/21/21 13:55 Review of Systems - Cardiovascular Cariovascular: reports: Edema - Respiratory Respiratory: reports: Snoring, SOB with exertion - All Other Systems All Other Systems: reports: Reviewed and negative Exam - Vital Signs Reviewed Vital Signs: Yes Vital Signs: Vital Signs x48h Temp Pulse Resp BP Pulse Ox 03/21/21 19:00 68 24 168/93 H 92 03/21/21 17:00 73 22 164/84 H 97 03/21/21 15:55 70 24 160/80 H 96 03/21/21 13:55 36.5 C 77 28 H 156/89 H 93 03/21/21 13:49 36.3 C L 77 28 H 156/89 H 93 - Physical Exam General Appearance: positive: No acute distress, Alert, Other (Morbidly obese) Eyes Bilateral: positive: Normal inspection ENT: positive: Other (wearing O2 per n.c.) Neck: positive: Other (obese and cannot eval her JVP) Respiratory: positive: No respiratory distress Cardiovascular: positive: Regular rate & rhythm (distant heart sunds, large pendulous breasts) Abdomen: positive: Non-tender, Other (Obese with large pannus) Skin: positive: Warm, Dry Extremities: positive: Other (2+ edema, shins have venous stasis changes) Neurologic/Psychiatric: positive: Oriented x3 (Non-focal) Conclusion/Plan - Problem List (1) Congestive heart failure Conclusion/Plan: Will request records from [facility]. or obtain an Echo here, to confirm if she has HFpEF or HFrEF. Will give a dose of iv Lasix and resume her usual cardiac meds when they are reconciled. Follow I's and O's, morning BMP and Mg. Qualifiers: Heart failure type: unspecified Heart failure chronicity: acute on chronic Qualified Code(s): I50.9 - Heart failure, unspecified (2) Carbon dioxide retention Conclusion/Plan: As per her ABG, since the pH is 7.37, this is chronic CO2 retention with compensation. The etiology is probably untreated sleep apnea, since she had an abnormnal sleep study in 2017, but has not used a CPSP untuil discharged from [facility] with this ordered, just 2 mos ago. Even with the device at home, she only uses part of the night, due to claustraphobia. Will continue her home CPAP device while here and RT may help explain why she ne eds to be compliant. (3) Sleep apnea Conclusion/Plan: As per Hx, it wa Dx in 2017, but she did not have a device at home until 2 mos ago. Plan is to use her BIPAP while here. (4) Anxiety Conclusion/Plan: We will continue with her usual medications when reconciled. (5) HTN (hypertension) Conclusion/Plan: =By review of this EMR, she has been on Carvedilol (and Losartan and Hyd ralazine) for at least 5 years, not since the new Dx of CHF, therefore the Carvedilol and other meds were being used for HTN control. We will continue her usual BP meds when they are reconciled. (6) Cor pulmonale Conclusion/Plan: As a board certified Interpreter And Translator, I performed a limited bedside 2D Echo today, and it showed normal LVEF and a very dilated RV with probably depressed RVEF. Continue with her Lasix and KCl replacement. (7) Morbid obesity with BMI of 60.0-69.9, adult Conclusion/Plan: As per Hx. - Lab Results Fish Bones: 03/21/21 14:43 03/21/21 14:43 - Diagnostic Imaging Results Diagnostic Imaging Results: positive: Final report reviewed - Other Other Results/Comments: Attestation: The patient is expected to be discharged in less than 72 hours.
[2021-03-21] MEDS ORDERED: carvediloL 12.5 MG TABLET PO SCH (21:00)
[2021-03-21 22:19] LABS: ABG HCO3 48.2 mmol/L (22.0-26.0); ABG PH 7.38 (7.35-7.45); ABG PO2 61 mmHg (80-100)
[2021-03-21 22:20] LABS: ABG BASE EXCESS 19.3 mmol/L (-2.0-3.0); ABG OXYGEN SATURATION 90 % (94-98); ALLEN TEST POSITIVE
[2021-03-21 22:22] LABS: ABG PCO2 84 mmHg (34-45); ABG TCO2 50.7 MMOL/L (21.0-29.0)
[2021-03-21] MEDS: hydrALAZINE 25 MG TABLET PO SCH (22:42)
[2021-03-22] MEDS: SODIUM CHLORIDE FLUSH 0.9% 10 ML SYRINGE IVP SCH ×3 (02:07→17:02)
[2021-03-22 06:18] LABS: CALCIUM 8.8 mg/dL (8.5-10.3); CREATININE 0.7 mg/dL (0.4-1.0); MAGNESIUM 2.3 mg/dL (1.7-2.8)
[2021-03-22] MEDS: hydrALAZINE 25 MG TABLET PO SCH ×3 (06:37→21:49)
[2021-03-22] MEDS ORDERED: carvediloL 12.5 MG TABLET PO SCH (09:00)
[2021-03-22] MEDS ORDERED: LOSARTAN 50 MG TABLET PO SCH (09:00)
[2021-03-22] MEDS ORDERED: FUROSEMIDE 40 MG/4 ML VIAL IVP SCH (09:00)
[2021-03-22] MEDS ORDERED: FUROSEMIDE 20 MG TABLET PO SCH (09:00)
[2021-03-22] MEDS ORDERED: NON FORMULARY MED (Losartan Potassium [Cozaar] 100 MG Tablet) PO SCH (09:00)
[2021-03-22] MEDS ORDERED: ASPIRIN CHEW 81 MG TABLET PO SCH (09:00)
[2021-03-22] MEDS ORDERED: POTASSIUM CHLORIDE 20 MEQ TABLET PO ONE ×2 (09:04→17:00)
[2021-03-22] MEDS: POTASSIUM CHLORIDE 10 MEQ CAPSULE PO SCH (10:16)
[2021-03-22] MEDS: ASPIRIN EC 81 MG TABLET PO SCH (10:17)
[2021-03-22] MEDS: LOSARTAN 50 MG TABLET PO SCH (10:17)
[2021-03-22] MEDS: ACETAMINOPHEN 325 MG TABLET PO PRN (10:20)
[2021-03-22] MEDS: SODIUM CHLORIDE FLUSH 0.9% 10 ML SYRINGE IVP PRN ×2 (10:45→18:11)
[2021-03-22] MEDS ORDERED: FUROSEMIDE 20 MG/2 ML VIAL IVP SCH ×2 (11:00→21:00)
[2021-03-22] MEDS: NYSTATIN POWDER 15 GM TOP SCH ×2 (11:23→21:50)
[2021-03-22] MEDS: POTASSIUM CHLORIDE 20 MEQ TABLET PO SCH ×3 (11:23→21:49)
--- NOTE | 2021-03-22 12:46 | PHARMACY PROGRESS NOTE ---
- Best Possible Medication History Admit Date and Time: 03/21/21 1830 Processed by: Pharmacy Medication History completed: Yes Patient Interview: Completed Secondary Source(s): Physician records, Pharmacy records, Insurance records As the person ultimately responsible for medication therapy, providers are able to order a medication from an existing home medication list in [facility] via the "Reconcile Routine" prior to Confirmation of that medication by network support specialist. Such practice is discouraged except when the physician, in their clinical judgment, deems that a medical need exists for a medication without regard to previous use.
--- NOTE | 2021-03-22 15:15 | PROVIDER PROGRESS NOTE ---
Assessment/Plan - Problem List (1) Hypoxia Assessment/Plan: pt's O2 sat was dropped to 80% on exertion with significant SOB, when pt just go to bathroom. it is likely combination of obesity respiratory syndrome and her CHF with fluid overloaded. we will treat with diuretics for pt's CHF and fluid overloaded, Supplemental oxygen as needed. (2) Congestive heart failure Conclusion/Plan: pt is home O2 depend with 3.5 lpm at home. pt's O2 sat was dropped to 80% on e xertion with significant SOB. pt's BNP is drop to 400 from 700 at the admission. order ECHO, will request record from [facility]. continue IV lasix and lab monitor, provide Oxygen as needed (3) Sleep apnea Conclusion/Plan: strong advise pt use CPAP at the night as the schedule for her medical compliance. As per Hx, it wa Dx in 2017, but she did not have a device at home until 2 mos ago. but pt report she still not use as the schedule Plan is to use her BIPAP at here, and continue home with CPAP (4) Carbon dioxide retention Conclusion/Plan: it is likely due to her obesity respiratory syndrome and medical non compliance to use CPAP at home. As per her ABG, since the pH is 7.37, this is chronic CO2 retention with compensation. The etiology is probably untreated sleep apnea, since she had an abnormnal sleep study in 2017, but has not used a CPAP until discharged from [facility] with this ordered, just 2 mos ago. Even with the device at home, she only uses part of the night, due to claustraphobia. Will continue her home CPAP device while here and RT may help explain why she needs to be compliant. (5) HTN (hypertension) Conclusion/Plan: stable, continue home meds Coreg, hydralazine, losartan, lasix (6) Cor pulmonale Conclusion/Plan: request medical record from [facility], order ECHO, per Dr. Rebecca Pepe report pt has normal LVEF and a very dilated RV with probably depressed RVEF Continue with her Lasix and KCl replacement. (7) Morbid obesity with BMI of 60.0-69.9, adult Conclusion/Plan: As per Hx. (8)anxiety add PRN Ativan (9)medical non compliant obviously pt did not take her CPAP which is likely cause her Co2 retention, educate pt and strongly advise pt do the medical compliance to have CPAP at the night. - Current Meds Current Meds: Current Medications Generic Name Dose Route Start Last Admin Trade Name [place] PRN Reason Stop Dose Admin Acetaminophen 650 mg 03/21/21 18:30 03/22/21 10:20 Acetaminophen 325 Mg Tablet PO 650 mg Q4HR PRN Administration Pain 1 to 4 Aspirin 81 mg 03/22/21 09:00 03/22/21 10:17 Aspirin Ec 81 Mg Tablet PO 81 mg DAILY OTIS Administration Carvedilol 25 mg 03/22/21 09:00 03/22/21 10:17 Carvedilol 12.5 Mg Tablet PO 25 mg DAILY OTIS Administration Furosemide 20 mg 03/22/21 11:00 03/22/21 10:43 Furosemide 20 Mg/2 Ml Vial IVP 20 mg DAILY OTIS Administration Hydralazine HCl 50 mg 03/21/21 22:00 03/22/21 06:37 Hydralazine 25 Mg Tablet PO 50 mg TID OTIS Administration Losartan Potassium 100 mg 03/22/21 09:00 03/22/21 10:17 Losartan 50 Mg Tablet PO 100 mg DAILY OTIS Administration Nystatin 2 applic 03/22/21 11:00 03/22/21 11:23 Nystatin Powder 15 Gm TOP 2 applic BID OTIS Administration Potassium Chloride 10 meq 03/22/21 08:00 03/22/21 10:16 Potassium Chloride 10 Meq Capsule PO 10 meq 0800 OTIS Administration Sodium Chloride 10 ml 03/21/21 18:30 03/22/21 10:45 Sodium Chloride Flush 0.9% 10 Ml Syringe IVP 10 ml PRN PRN Administration NEEDED PER PROVIDER ORDERS Sodium Chloride 10 ml 03/22/21 01:00 03/22/21 10:18 Sodium Chloride Flush 0.9% 10 Ml Syringe IVP 10 ml 0100,0900,1700 OTIS Administration - Lab Result Fish Bone Diagrams: 03/21/21 14:43 03/22/21 06:02 - Additional Planning My Orders: My Active Orders 03/22/21 11:00 FUROSEMIDE INJ 20mg VIAL [LASIX INJ 20mg VIAL] 20 mg IVP DAILY Nystatin [Nystop] 2 applic TOP BID 03/22/21 14:19 VITAMIN D,25-OH,TOTAL,IA [REFLAB] Routine 03/22/21 15:13 Echo Transthoracic Complete [ECHO] Stat 03/23/21 05:00 BMP - BASIC METABOLIC PANEL [CHEM] DAILYLAB BNP - B-NATRIURETIC PEPTIDE [IAI] DAILYLAB CBC - COMP BLD CT W/AUTO DIFF [HEME] DAILYLAB 03/23/21 09:00 Cholecalciferol [Vitamin D3] 50 mcg PO DAILY 03/24/21 05:00 BMP - BASIC METABOLIC PANEL [CHEM] DAILYLAB BNP - B-NATRIURETIC PEPTIDE [IAI] DAILYLAB CBC - COMP BLD CT W/AUTO DIFF [HEME] DAILYLAB 03/25/21 05:00 BMP - BASIC METABOLIC PANEL [CHEM] DAILYLAB BNP - B-NATRIURETIC PEPTIDE [IAI] DAILYLAB CBC - COMP BLD CT W/AUTO DIFF [HEME] DAILYLAB 03/26/21 05:00 BMP - BASIC METABOLIC PANEL [CHEM] DAILYLAB BNP - B-NATRIURETIC PEPTIDE [IAI] DAILYLAB CBC - COMP BLD CT W/AUTO DIFF [HEME] DAILYLAB 03/27/21 05:00 BMP - BASIC METABOLIC PANEL [CHEM] DAILYLAB BNP - B-NATRIURETIC PEPTIDE [IAI] DAILYLAB CBC - COMP BLD CT W/AUTO DIFF [HEME] DAILYLAB Subjective - Subjective Patient Reports: Resting Comfortably Objective Vital Signs: Vital Signs - 24 hr 03/21/21 03/21/21 03/21/21 15:55 17:00 19:00 Temperature Heart Rate 70 73 68 Heart Rate [ Monitoring electrodes] Respiratory 24 22 24 Rate Blood Pressure 160/80 H 164/84 H 168/93 H Blood Pressure [Right Brachial artery] O2 Saturation 96 97 92 03/21/21 03/21/21 03/21/21 20:09 20:10 20:15 Temperature Heart Rate 80 80 79 Heart Rate [ Monitoring electrodes] Respiratory 23 18 19 Rate Blood Pressure 194/74 H Blood Pressure [Right Brachial artery] O2 Saturation 03/21/21 03/21/21 03/21/21 20:20 20:23 20:25 Temperature 36.5 C Heart Rate 80 83 Heart Rate [ 86 Monitoring electrodes] Respiratory 22 17 26 H Rate Blood Pressure Blood Pressure 194/74 H [Right Brachial artery] O2 Saturation 95 03/21/21 03/21/21 03/21/21 20:30 20:31 20:35 Temperature Heart Rate 85 83 82 Heart Rate [ Monitoring electrodes] Respiratory 19 27 H 26 H Rate Blood Pressure 175/86 H Blood Pressure [Right Brachial artery] O2 Saturation 03/21/21 03/21/21 03/21/21 20:40 20:45 20:46 Temperature Heart Rate 85 84 83 Heart Rate [ Monitoring electrodes] Respiratory 19 18 22 Rate Blood Pressure 177/81 H Blood Pressure [Right Brachial artery] O2 Saturation 03/21/21 03/21/21 03/21/21 20:50 20:55 21:00 Temperature Heart Rate 82 83 84 Heart Rate [ 82 Monitoring electrodes] Respiratory 23 21 22 Rate Blood Pressure Blood Pressure 180/69 H [Right Brachial artery] O2 Saturation 90 L 03/21/21 03/21/21 03/21/21 21:02 21:03 21:05 Temperature Heart Rate 118 H 82 81 Heart Rate [ Monitoring electrodes] Respiratory 19 21 22 Rate Blood Pressure 180/69 H Blood Pressure [Right Brachial artery] O2 Saturation 03/21/21 03/21/21 03/21/21 21:10 21:15 21:16 Temperature Heart Rate 85 82 85 Heart Rate [ Monitoring electrodes] Respiratory 21 21 25 H Rate Blood Pressure 177/76 H Blood Pressure [Right Brachial artery] O2 Saturation 03/21/21 03/21/21 03/21/21 21:20 22:00 22:06 Temperature Heart Rate 84 74 Heart Rate [ 67 Monitoring electrodes] Respiratory 24 18 Rate Blood Pressure Blood Pressure 149/70 H [Right Brachial artery] O2 Saturation 92 03/21/21 03/21/21 03/22/21 22:41 23:00 00:00 Temperature Heart Rate 76 Heart Rate [ 74 72 Monitoring electrodes] Respiratory 21 26 H Rate Blood Pressure Blood Pressure 119/78 140/67 H [Right Brachial artery] O2 Saturation 95 95 03/22/21 03/22/21 03/22/21 01:00 01:21 02:00 Temperature Heart Rate 71 Heart Rate [ 72 65 Monitoring electrodes] Respiratory 17 17 Rate Blood Pressure Blood Pressure 154/70 H 124/67 [Right Brachial artery] O2 Saturation 90 L 92 03/22/21 03/22/21 03/22/21 03:00 04:00 04:55 Temperature Heart Rate 68 Heart Rate [ 71 69 Monitoring electrodes] Respiratory 23 20 Rate Blood Pressure Blood Pressure 156/70 H 156/71 H [Right Brachial artery] O2 Saturation 93 91 L 03/22/21 03/22/21 03/22/21 05:00 06:00 07:00 Temperature Heart Rate Heart Rate [ 61 74 79 Monitoring electrodes] Respiratory 14 25 H 27 H Rate Blood Pressure Blood Pressure 154/74 H 168/92 H 148/72 H [Right Brachial artery] O2 Saturation 95 96 92 03/22/21 03/22/21 03/22/21 08:00 09:00 10:00 Temperature Heart Rate Heart Rate [ 82 84 85 Monitoring electrodes] Respiratory 21 20 22 Rate Blood Pressure Blood Pressure 154/74 H 132/63 H 134/59 H [Right Brachial artery] O2 Saturation 90 L 92 89 L 03/22/21 03/22/21 03/22/21 11:00 12:00 13:00 Temperature Heart Rate Heart Rate [ 77 70 70 Monitoring electrodes] Respiratory 20 27 H 16 Rate Blood Pressure Blood Pressure 150/67 H 140/64 H 131/59 H [Right Brachial artery] O2 Saturation 92 92 92 03/22/21 03/22/21 14:00 15:07 Temperature Heart Rate Heart Rate [ 76 Monitoring electrodes] Respiratory 18 23 Rate Blood Pressure Blood Pressure 131/51 H [Right Brachial artery] O2 Saturation 95 95 Oxygen O2 Source BIPAP I&O (Last 24 Hrs): Intake and Output Totals x24h 03/20/21 03/21/21 03/22/21 23:59 23:59 23:59 Intake Total 1040 Output Total 0 1600 Balance 0 -560 General: Alert, Oriented x3, No acute distress HEENT: Atraumatic Neck: Supple Neuro: Alert, Non Focal, Oriented Times 3 Cardiovascular: Regular rate, Normal S1, Normal S2 Respiratory: Chest non-tender, No respiratory distress Abdomen: Normal bowel sounds, Soft Extremities: Normal pulses - Results Results: Laboratory Results WBC 5.4 x10^3/uL (4.8-10.8) 03/21/21 14:43 RBC 4.02 10^6/uL (4.20-5.40) L 03/21/21 14:43 Hgb 10.1 g/dL (12.0-16.0) L 03/21/21 14:43 Hct 36.2 % (37.0-47.0) L 03/21/21 14:43 MCV 90.0 fL (81.0-99.0) 03/21/21 14:43 MCH 25.1 pg (27.0-31.0) L 03/21/21 14:43 MCHC 27.9 g/dL (32.0-36.0) L 03/21/21 14:43 RDW 22.2 % (12.0-15.0) H 03/21/21 14:43 Plt Count 195 10^3/uL (130-450) 03/21/21 14:43 MPV 8.8 fL (7.9-10.8) 03/21/21 14:43 Neut # (Auto) 4.0 10^3/uL (1.5-6.6) 03/21/21 14:43 Lymph # (Auto) 0.8 10^3/uL (1.5-3.5) L 03/21/21 14:43 Nicholas # (Auto) 0.5 10^3/uL (0.0-1.0) 03/21/21 14:43 Eos # (Auto) 0.0 10^3/uL (0.0-0.7) 03/21/21 14:43 Baso # (Auto) 0.0 10^3/uL (0.0-0.1) 03/21/21 14:43 Absolute Nucleated RBC 0.00 x10^3/uL 03/21/21 14:43 Nucleated RBC % 0.0 /100WBC 03/21/21 14:43 Bld Gas Analysis Time 192503/21/21 19:25 Sample Site RIGHT RADIAL 03/21/21 19:25 ABG pH 7.38 (7.35-7.45) 03/21/21 19:25 ABG pCO2 84 mmHg (34-45) H* 03/21/21 19:25 ABG pO2 61 mmHg (80-100) L 03/21/21 19:25 ABG HCO3 48.2 mmol/L (22.0-26.0) H 03/21/21 19:25 ABG Total CO2 50.7 MMOL/L (21.0-29.0) H* 03/21/21 19:25 ABG O2 Saturation 90 % (94-98) L 03/21/21 19:25 ABG Base Excess 19.3 mmol/L (-2.0-3.0) H 03/21/21 19:25 Juan Jose Test POSITIVE 03/21/21 19:25 VBG pH 7.349 (7.31-7.41) 03/21/21 16:32 VBG pCO2 86.2 mmHg (41-51) H 03/21/21 16:32 VBG pO2 26.5 mmHg (25-47) 03/21/21 16:32 VBG HCO3 46.4 mmol/L (23-28) H 03/21/21 16:32 VBG Total CO2 49.1 mmol/L (24-29) H 03/21/21 16:32 VBG O2 Saturation 49.3 % (60-80) L 03/21/21 16:32 VBG Base Excess 17.0 mmol/L (-2 - +2) H 03/21/21 16:32 O2 Delivery Device BiPAP 03/21/21 19:25 FiO2 40.00 03/21/21 19:25 EPAP 7 cmH2O 03/21/21 19:25 IPAP 14 cmH2O 03/21/21 19:25 Sodium 144 mmol/L (135-145) 03/22/21 06:02 Potassium 3.0 mmol/L (3.5-5.0) L 03/22/21 06:02 Chloride 88 mmol/L (101-111) L 03/22/21 06:02 Carbon Dioxide 47 mmol/L (21-32) H* 03/22/21 06:02 Anion Gap 9.0 (6-13) 03/22/21 06:02 BUN 14 mg/dL (6-20) 03/22/21 06:02 Creatinine 0.7 mg/dL (0.4-1.0) 03/22/21 06:02 Estimated GFR (MDRD) 87 (>89) L 03/22/21 06:02 Glucose 94 mg/dL (70-100) 03/22/21 06:02 Calcium 8.8 mg/dL (8.5-10.3) 03/22/21 06:02 Magnesium 2.3 mg/dL (1.7-2.8) 03/22/21 06:02 Total Bilirubin 1.1 mg/dL (0.2-1.0) H 03/21/21 14:43 AST 15 IU/L (10-42) 03/21/21 14:43 ALT 12 IU/L (10-60) 03/21/21 14:43 Alkaline Phosphatase 56 IU/L (42-121) 03/21/21 14:43 B-Natriuretic Peptide 437 pg/mL (5-100) H 03/22/21 06:02 Total Protein 7.0 g/dL (6.7-8.2) 03/21/21 14:43 Albumin 3.7 g/dL (3.2-5.5) 03/21/21 14:43 Globulin 3.3 g/dL (2.1-4.2) 03/21/21 14:43 Albumin/Globulin Ratio 1.1 (1.0-2.2) 03/21/21 14:43 Lipase 20 U/L (22-51) L 03/21/21 14:43 Nasal Adenovirus (PCR) NOT DETECTED 03/21/21 17:41 Nasal B. parapertussis DNA (PCR) NOT DETECTED 03/21/21 17:41 Nasal Coronavir 229E PCR NOT DETECTED 03/21/21 17:41 Nasal Coronavir HKU1 PCR NOT DETECTED 03/21/21 17:41 Nasal Coronavir NL63 PCR NOT DETECTED 03/21/21 17:41 Nasal Coronavir OC43 PCR NOT DETECTED 03/21/21 17:41 Nasal Enterovir/Rhinovir PCR NOT DETECTED 03/21/21 17:41 Nasal Influenza B PCR NOT DETECTED 03/21/21 17:41 Nasal Influenza A PCR NOT DETECTED 03/21/21 17:41 Nasal Parainfluen 1 PCR NOT DETECTED 03/21/21 17:41 Nasal Parainfluen 2 PCR NOT DETECTED 03/21/21 17:41 Nasal Parainfluen 3 PCR NOT DETECTED 03/21/21 17:41 Nasal Parainfluen 4 PCR NOT DETECTED 03/21/21 17:41 Nasal RSV (PCR) NOT DETECTED 03/21/21 17:41 Nasal Screen MRSA (PCR) NEGATIVE (NEGATIVE) 03/21/21 20:10 Nasal B.pertussis DNA PCR NOT DETECTED 03/21/21 17:41 Nasal C.pneumoniae (PCR) NOT DETECTED 03/21/21 17:41 Corwin Human Metapneumo PCR NOT DETECTED 03/21/21 17:41 Nasal M.pneumoniae (PCR) NOT DETECTED 03/21/21 17:41 Nasal SARS-CoV-2 (PCR) NOT DETECTED 03/21/21 17:41 ABX Reporting Has patient been on IV antibiotics over the past 48 hours?: No Current Medications - Current Medications Current Medications: Active Medications Acetaminophen (Acetaminophen 325 Mg Tablet) 650 mg PO Q4HR PRN PRN Reason: Pain 1 to 4 Last Admin: 03/22/21 10:20 Dose: 650 mg Aspirin (Aspirin Ec 81 Mg Tablet) 81 mg PO DAILY [facility] Last Admin: 03/22/21 10:17 Dose: 81 mg Carvedilol (Carvedilol 12.5 Mg Tablet) 25 mg PO DAILY [facility] Last Admin: 03/22/21 10:17 Dose: 25 mg Cholecalciferol (Cholecalciferol 25 Mcg Tablet) 50 mcg PO DAILY [facility] Furosemide (Furosemide 20 Mg/2 Ml Vial) 20 mg IVP DAILY [facility] Last Admin: 03/22/21 10:43 Dose: 20 mg Hydralazine HCl (Hydralazine 25 Mg Tablet) 50 mg PO TID [facility] Last Admin: 03/22/21 06:37 Dose: 50 mg Lorazepam (Lorazepam 0.5 Mg Tablet) 0.5 mg PO DAILY PRN PRN Reason: Anxiety Losartan Potassium (Losartan 50 Mg Tablet) 100 mg PO DAILY [facility] Last Admin: 03/22/21 10:17 Dose: 100 mg Nystatin (Nystatin Powder 15 Gm) 2 applic TOP BID [facility] Last Admin: 03/22/21 11:23 Dose: 2 applic Ondansetron HCl (Ondansetron 4 Mg/2 Ml Vial) 4 mg IVP Q6HR PRN PRN Reason: Nausea / Vomiting Oxycodone HCl (Oxycodone 5 Mg Tablet) 5 mg PO Q4HR PRN PRN Reason: Pain 5 to 7 Potassium Chloride (Potassium Chloride 10 Meq Capsule) 10 meq PO 0800 [facility] Last Admin: 03/22/21 10:16 Dose: 10 meq Sodium Chloride (Sodium Chloride Flush 0.9% 10 Ml Syringe) 10 ml IVP PRN PRN PRN Reason: NEEDED PER PROVIDER ORDERS Last Admin: 03/22/21 10:45 Dose: 10 ml Sodium Chloride (Sodium Chloride Flush 0.9% 10 Ml Syringe) 10 ml IVP 0100,0900,1700 [facility] Last Admin: 03/22/21 10:18 Dose: 10 ml Carvedilol [Coreg] 25 mg PO BID 07/26/12 Aspirin [[place] Aspirin] 81 mg PO DAILY 02/04/21 Hydralazine HCl 50 mg PO TID 02/04/21 Losartan Potassium [Cozaar] 100 mg PO DAILY 02/04/21 Christine-3/Dha/Epa/Fish Oil [Fish Oil 1,000 mg Softgel] 1 cap PO BID 02/04/21 Furosemide [Lasix] 20 mg PO DAILY 03/21/21 Potassium Chloride [Micro-K] 20 meq PO 0800 03/21/21 Cholecalciferol (Vitamin D3) [Vitamin D3] 50 mcg PO DAILY 03/22/21
[2021-03-22] MEDS ORDERED: LORazepam 0.5 MG TABLET PO PRN (15:26)
[2021-03-22] MEDS: FUROSEMIDE 20 MG/2 ML VIAL IVP SCH (18:11)
[2021-03-23] MEDS: POTASSIUM CHLORIDE 20 MEQ TABLET PO SCH (02:26)
[2021-03-23 06:11] LABS: BASOPHILS % (AUTO) 0.7 %; EOSINOPHILS # (AUTO) 0.1 10^3/uL (0.0-0.7); EOSINOPHILS % (AUTO) 2.7 %; HCT - HEMATOCRIT 33.8 % (37.0-47.0); HGB - HEMOGLOBIN 9.7 g/dL (12.0-16.0); LYMPHOCYTES # (AUTO) 0.9 10^3/uL (1.5-3.5); LYMPHOCYTES % (AUTO) 21.4 %; MEAN CORPUSCULAR HEMOGLOBIN 25.3 pg (27.0-31.0); MEAN CORPUSCULAR HGB CONC 28.7 g/dL (32.0-36.0); MEAN PLATELET VOLUME 9.5 fL (7.9-10.8); MONOCYTES # (AUTO) 0.6 10^3/uL (0.0-1.0); MONOCYTES % (AUTO) 12.5 %; NEUTROPHILS # (AUTO) 2.7 10^3/uL (1.5-6.6); NEUTROPHILS % (AUTO) 62.5 %; PLT - PLATELET COUNT 200 10^3/uL (130-450); RED BLOOD COUNT 3.84 10^6/uL (4.20-5.40); RED CELL DISTRIBUTION WIDTH 22.5 % (12.0-15.0); WHITE BLOOD COUNT 4.4 x10^3/uL (4.8-10.8)
[2021-03-23 06:20] LABS: CALCIUM 8.8 mg/dL (8.5-10.3); CREATININE 0.6 mg/dL (0.4-1.0); POTASSIUM 2.9 mmol/L (3.5-5.0)
[2021-03-23] MEDS: hydrALAZINE 25 MG TABLET PO SCH ×3 (06:26→21:47)
[2021-03-23 06:29] LABS: SLIDE REVIEW? Indicated
[2021-03-23] MEDS: FUROSEMIDE 20 MG/2 ML VIAL IVP SCH ×2 (06:30→09:23)
[2021-03-23] MEDS: SODIUM CHLORIDE FLUSH 0.9% 10 ML SYRINGE IVP SCH ×3 (06:30→17:57)
[2021-03-23 06:33] LABS: PLATELET ESTIMATE, MANUAL NORMAL (130-450,000) (NORMAL); PLATELET MORPHOLOGY NORMAL APPEARANCE (NORMAL); WBC MORPHOLOGY (MULTIPLE) NORMAL APPEARANCE (NORMAL)
[2021-03-23] MEDS ORDERED: hydrALAZINE INJ 20 MG/ML VIAL IVP PRN (08:21)
[2021-03-23 08:45] LABS: ABSOLUTE RETICS # AUTO 0.096 10^6/uL (0.020-0.110); RED BLOOD COUNT 4.29 10^6/uL (4.20-5.40); RETICULOCYTE COUNT % (AUTO) 2.24 % (0.5-2.3)
[2021-03-23 09:07] LABS: % IRON SATURATION 11 % (20-50); IRON 44 ug/dL (28-170); TOTAL IRON BINDING CAPACITY 402 ug/dL (250-450); TRANSFERRIN 287 mg/dL (192-382)
[2021-03-23] MEDS: POTASSIUM CHLOR 10 MEQ/100 ML 10 MEQ/100 ML BAG IV SCH ×6 (09:16→20:30)
[2021-03-23] MEDS: carvediloL 12.5 MG TABLET PO SCH ×3 (09:30→20:39)
[2021-03-23] MEDS: POTASSIUM CHLORIDE 10 MEQ CAPSULE PO SCH (09:32)
[2021-03-23] MEDS: CHOLECALCIFEROL 25 MCG TABLET PO SCH (09:33)
[2021-03-23] MEDS: ASPIRIN EC 81 MG TABLET PO SCH (09:36)
[2021-03-23] MEDS: LOSARTAN 50 MG TABLET PO SCH (09:36)
[2021-03-23] MEDS: NYSTATIN POWDER 15 GM TOP SCH ×2 (10:00→21:48)
--- NOTE | 2021-03-23 15:05 | PROVIDER PROGRESS NOTE ---
Assessment/Plan - Problem List (1) SVT (supraventricular tachycardia) Assessment/Plan: t has non-suspended SVT on last night on tele with shortness of breath, repeat EKG did not show SVT. pt's potassium is 2.9, it is likely the cause. we will replace potassium per ICU protocol, lab monitor. increase coreg dosage and overnight monitor with tele. (2)hypokalemia 03/23 pt's potassium is down to 2.9, pt is on diuretics IV Lasix for her heart failure. we will replace with potassium per ICU protocol and continue lab monitor (3) Hypoxia Assessment/Plan: 03/23 improved. pt had CPAP on last night, she tolerate well. today morning she had 100% on 4 liter of O2, continue diuretics and supplement of O2, vital monitor pt's O2 sat was dropped to 80% on exertion with significant SOB, when pt just go to bathroom. it is likely combination of obesity respiratory syndrome and her CHF with fluid overloaded. we will treat with diuretics for pt's CHF and fluid overloaded, Supplemental oxygen as needed. (4) Congestive heart failure Conclusion/Plan: 03/23 improved. BNP is down to 180 from 430, pt report she feel better, will continue IV diuretic, Lasix dosage is slight reduced IV daily, continue supple ment O2, continue CPAP on night. continue lab and vital monitor. ECHO is pending. pt is home O2 depend with 3.5 lpm at home. pt's O2 sat was dropped to 80% on exertion with significant SOB. pt's BNP is drop to 400 from 700 at the admission. order ECHO, will request record from [facility]. continue IV lasix and lab monitor, provide Oxygen as needed (5) Sleep apnea Conclusion/Plan: strong advise pt use CPAP at the night as the schedule for her medical compliance. As per Hx, it wa Dx in 2017, but she did not have a device at home until 2 mos ago. but pt report she still not use as the schedule Plan is to use her BIPAP at here, and continue home with CPAP (6) Carbon dioxide retention Conclusion/Plan: 03/23 improved, PCO2 is down to 45, pt tolerate CPAP well, strong advise pt keep medical compliant to use CPAP on the night. it is likely due to her obesity respiratory syndrome and medical non compliance to use CPAP at home. As per her ABG, since the pH is 7.37, this is chronic CO2 retention with compensation. The etiology is probably untreated sleep apnea, since she had an abnormnal sleep study in 2017, but has not used a CPAP until discharged from [facility] with this ordered, just 2 mos ago. Even with the device at home, she only uses part of the night, due to claustraphobia. Will continue her home CPAP device while here and RT may help explain why she needs to be compliant. (7) HTN (hypertension) Conclusion/Plan: stable, continue home meds Coreg, hydralazine, losartan, lasix (8) Cor pulmonale Conclusion/Plan: request medical record from [facility], order ECHO, per Dr. Rebecca Pepe report pt has normal LVEF and a very dilated RV with probably depressed RVEF Continue with her Lasix and KCl replacement. (9) Morbid obesity with BMI of 60.0-69.9, adult Conclusion/Plan: As per Hx. (10)anxiety add PRN Ativan (11)medical non compliant obviously pt did not take her CPAP which is likely cause her Co2 retention, educate pt and strongly advise pt do the medical compliance to have CPAP at the night. - Current Meds Current Meds: Current Medications Generic Name Dose Route Start Last Admin Trade Name Freq PRN Reason Stop Dose Admin Acetaminophen 650 mg 03/21/21 18:30 03/22/21 10:20 Acetaminophen 325 Mg Tablet PO 650 mg Q4HR PRN Administration Pain 1 to 4 Aspirin 81 mg 03/22/21 09:00 03/23/21 09:36 Aspirin Ec 81 Mg Tablet PO 81 mg DAILY OTIS Administration Carvedilol 25 mg 03/23/21 08:24 03/23/21 12:37 Carvedilol 12.5 Mg Tablet PO Not Given BID OTIS Cholecalciferol 50 mcg 03/23/21 09:00 03/23/21 09:33 Cholecalciferol 25 Mcg Tablet PO 50 mcg DAILY OTIS Administration Furosemide 20 mg 03/23/21 09:00 03/23/21 09:23 Furosemide 20 Mg/2 Ml Vial IVP 20 mg DAILY OTIS Administration Hydralazine HCl 50 mg 03/21/21 22:00 03/23/21 14:34 Hydralazine 25 Mg Tablet PO 50 mg TID OTIS Administration Losartan Potassium 100 mg 03/22/21 09:00 03/23/21 09:36 Losartan 50 Mg Tablet PO 100 mg DAILY OTIS Administration Nystatin 2 applic 03/22/21 11:00 03/23/21 10:00 Nystatin Powder 15 Gm TOP 2 applic BID OTIS Administration Potassium Chloride 10 meq 03/22/21 08:00 03/23/21 09:32 Potassium Chloride 10 Meq Capsule PO 10 meq 0800 OTIS Administration Sodium Chloride 10 ml 03/21/21 18:30 03/22/21 18:11 Sodium Chloride Flush 0.9% 10 Ml Syringe IVP 10 ml PRN PRN Administration NEEDED PER PROVIDER ORDERS Sodium Chloride 10 ml 03/22/21 01:00 03/23/21 09:14 Sodium Chloride Flush 0.9% 10 Ml Syringe IVP 10 ml 0100,0900,1700 OTIS Administration - Lab Result Fish Bone Diagrams: 03/23/21 05:33 03/23/21 05:33 - Additional Planning My Orders: My Active Orders 03/22/21 15:13 Echo Transthoracic Complete [ECHO] Stat 03/22/21 15:26 LORazepam [Ativan] 0.5 mg PO DAILY PRN 03/22/21 17:58 Initiate ICU Electrolyte Prot. [RC] QSHIFT 03/23/21 08:21 hydrALAZINE INJ [Apresoline Inj] 10 mg IVP QID PRN 03/23/21 08:24 carvediloL [Coreg] 25 mg PO BID 03/23/21 09:00 Cholecalciferol [Vitamin D3] 50 mcg PO DAILY FUROSEMIDE INJ 20mg VIAL [LASIX INJ 20mg VIAL] 20 mg IVP DAILY 03/23/21 11:27 Admit [Admit \ Transfer \ Status] [RC] .ONCE 03/24/21 05:00 BMP - BASIC METABOLIC PANEL [CHEM] DAILYLAB BNP - B-NATRIURETIC PEPTIDE [IAI] DAILYLAB CBC - COMP BLD CT W/AUTO DIFF [HEME] DAILYLAB 03/25/21 05:00 BMP - BASIC METABOLIC PANEL [CHEM] DAILYLAB BNP - B-NATRIURETIC PEPTIDE [IAI] DAILYLAB CBC - COMP BLD CT W/AUTO DIFF [HEME] DAILYLAB 03/26/21 05:00 BMP - BASIC METABOLIC PANEL [CHEM] DAILYLAB BNP - B-NATRIURETIC PEPTIDE [IAI] DAILYLAB CBC - COMP BLD CT W/AUTO DIFF [HEME] DAILYLAB 03/27/21 05:00 BMP - BASIC METABOLIC PANEL [CHEM] DAILYLAB BNP - B-NATRIURETIC PEPTIDE [IAI] DAILYLAB CBC - COMP BLD CT W/AUTO DIFF [HEME] DAILYLAB Subjective - Subjective Patient Reports: Feeling Better, Resting Comfortably Objective Vital Signs: Vital Signs - 24 hr 03/22/21 03/22/21 03/22/21 15:07 16:00 17:00 Temperature 36.6 C Heart Rate Heart Rate [ 66 71 Monitoring electrodes] Respiratory 23 19 24 Rate Blood Pressure [Left Brachial artery] Blood Pressure 122/61 141/78 H [Right Brachial artery] O2 Saturation 95 98 92 03/22/21 03/22/21 03/22/21 18:00 19:00 20:00 Temperature Heart Rate Heart Rate [ 72 70 69 Monitoring electrodes] Respiratory 20 16 17 Rate Blood Pressure [Left Brachial artery] Blood Pressure 148/67 H 135/55 H 156/70 H [Right Brachial artery] O2 Saturation 94 95 93 03/22/21 03/22/21 03/22/21 21:00 22:00 23:00 Temperature 37.1 C Heart Rate Heart Rate [ 64 64 77 Monitoring electrodes] Respiratory 17 21 23 Rate Blood Pressure [Left Brachial artery] Blood Pressure 166/97 H 186/98 H 192/90 H [Right Brachial artery] O2 Saturation 94 100 98 03/22/21 03/23/21 03/23/21 23:30 00:00 01:00 Temperature Heart Rate 69 Heart Rate [ 61 70 Monitoring electrodes] Respiratory 17 14 Rate Blood Pressure [Left Brachial artery] Blood Pressure 152/76 H 150/78 H [Right Brachial artery] O2 Saturation 95 98 03/23/21 03/23/21 03/23/21 02:00 02:35 03:00 Temperature Heart Rate 74 Heart Rate [ 65 69 Monitoring electrodes] Respiratory 18 24 Rate Blood Pressure [Left Brachial artery] Blood Pressure 132/54 H 143/65 H [Right Brachial artery] O2 Saturation 93 92 03/23/21 03/23/21 03/23/21 04:00 05:00 06:00 Temperature Heart Rate Heart Rate [ 84 71 65 Monitoring electrodes] Respiratory 29 H 21 19 Rate Blood Pressure [Left Brachial artery] Blood Pressure 150/76 H 163/73 H 144/71 H [Right Brachial artery] O2 Saturation 95 94 98 03/23/21 03/23/21 03/23/21 06:01 07:00 08:41 Temperature 36.8 C Heart Rate 76 Heart Rate [ 73 Monitoring electrodes] Respiratory 20 Rate Blood Pressure [Left Brachial artery] Blood Pressure 214/84 H [Right Brachial artery] O2 Saturation 97 03/23/21 03/23/21 03/23/21 09:00 10:00 11:00 Temperature Heart Rate Heart Rate [ 78 69 60 Monitoring electrodes] Respiratory 21 25 H 19 Rate Blood Pressure 99/75 120/61 79/57 L [Left Brachial artery] Blood Pressure [Right Brachial artery] O2 Saturation 98 96 03/23/21 03/23/21 03/23/21 12:30 13:25 14:00 Temperature 37.2 C Heart Rate Heart Rate [ 68 58 L 72 Monitoring electrodes] Respiratory 22 14 21 Rate Blood Pressure 140/75 H 154/79 H 147/63 H [Left Brachial artery] Blood Pressure [Right Brachial artery] O2 Saturation 93 94 100 03/23/21 14:30 Temperature 98.5 C H Heart Rate Heart Rate [ 71 Monitoring electrodes] Respiratory 21 Rate Blood Pressure [Left Brachial artery] Blood Pressure 147/63 H [Right Brachial artery] O2 Saturation Oxygen O2 Source Nasal cannula I&O (Last 24 Hrs): Intake and Output Totals x24h 03/21/21 03/22/21 03/23/21 23:59 23:59 23:59 Intake Total 2009 1260.000 Output Total 0 2200 1950 Balance 0 -190 -690.000 General: Alert, Oriented x3, Cooperative, No acute distress HEENT: Atraumatic Neck: Supple Lymphatic: no adenopathy Neuro: Alert, Non Focal, Oriented Times 3 Cardiovascular: Regular rate, Normal S1, Normal S2 Respiratory: Chest non-tender, No respiratory distress Abdomen: Normal bowel sounds, Soft Extremities: Normal pulses - Results Results: Laboratory Results WBC 4.4 x10^3/uL (4.8-10.8) L 03/23/21 05:33 RBC 4.29 10^6/uL (4.20-5.40) 03/23/21 08:40 Hgb 9.7 g/dL (12.0-16.0) L 03/23/21 05:33 Hct 33.8 % (37.0-47.0) L 03/23/21 05:33 MCV 88.0 fL (81.0-99.0) 03/23/21 05:33 MCH 25.3 pg (27.0-31.0) L 03/23/21 05:33 MCHC 28.7 g/dL (32.0-36.0) L 03/23/21 05:33 RDW 22.5 % (12.0-15.0) H 03/23/21 05:33 Plt Count 200 10^3/uL (130-450) 03/23/21 05:33 MPV 9.5 fL (7.9-10.8) 03/23/21 05:33 Reticulocyte % (Auto) 2.24 % (0.5-2.3) 03/23/21 08:40 Neut # (Auto) 2.7 10^3/uL (1.5-6.6) 03/23/21 05:33 Lymph # (Auto) 0.9 10^3/uL (1.5-3.5) L 03/23/21 05:33 Creek # (Auto) 0.6 10^3/uL (0.0-1.0) 03/23/21 05:33 Eos # (Auto) 0.1 10^3/uL (0.0-0.7) 03/23/21 05:33 Baso # (Auto) 0.0 10^3/uL (0.0-0.1) 03/23/21 05:33 Absolute Nucleated RBC 0.00 x10^3/uL 03/23/21 05:33 Nucleated RBC % 0.0 /100WBC 03/23/21 05:33 Manual Slide Review Indicated 03/23/21 05:33 WBC Morphology NORMAL APPEARANCE (NORMAL) 03/23/21 05:33 Platelet Estimate NORMAL (130-450,000) (NORMAL) 03/23/21 05:33 Platelet Morphology NORMAL APPEARANCE (NORMAL) 03/23/21 05:33 RBC Morph Micro Appear 1+ ANISOCYTOSIS (NORMAL) 2+ HYPOCHROMASIA (NORMAL) 03/23/21 05:33 RBC Morph Micro Appear 1+ ANISOCYTOSIS (NORMAL) 2+ HYPOCHROMASIA (NORMAL) 03/23/21 05:33 Absolute Retic 0.096 10^6/uL (0.020-0.110) 03/23/21 08:40 Bld Gas Analysis Time 192503/21/21 19:25 Sample Site RIGHT RADIAL 03/21/21 19:25 ABG pH 7.38 (7.35-7.45) 03/21/21 19:25 ABG pCO2 84 mmHg (34-45) H* 03/21/21 19:25 ABG pO2 61 mmHg (80-100) L 03/21/21 19:25 ABG HCO3 48.2 mmol/L (22.0-26.0) H 03/21/21 19:25 ABG Total CO2 50.7 MMOL/L (21.0-29.0) H* 03/21/21 19:25 ABG O2 Saturation 90 % (94-98) L 03/21/21 19:25 ABG Base Excess 19.3 mmol/L (-2.0-3.0) H 03/21/21 19:25 Juan Jose Test POSITIVE 03/21/21 19:25 VBG pH 7.349 (7.31-7.41) 03/21/21 16:32 VBG pCO2 86.2 mmHg (41-51) H 03/21/21 16:32 VBG pO2 26.5 mmHg (25-47) 03/21/21 16:32 VBG HCO3 46.4 mmol/L (23-28) H 03/21/21 16:32 VBG Total CO2 49.1 mmol/L (24-29) H 03/21/21 16:32 VBG O2 Saturation 49.3 % (60-80) L 03/21/21 16:32 VBG Base Excess 17.0 mmol/L (-2 - +2) H 03/21/21 16:32 O2 Delivery Device BiPAP 03/21/21 19:25 FiO2 40.00 03/21/21 19:25 EPAP 7 cmH2O 03/21/21 19:25 IPAP 14 cmH2O 03/21/21 19:25 Sodium 145 mmol/L (135-145) 03/23/21 05:33 Potassium 2.9 mmol/L (3.5-5.0) L 03/23/21 05:33 Chloride 90 mmol/L (101-111) L 03/23/21 05:33 Carbon Dioxide 45 mmol/L (21-32) H* 03/23/21 05:33 Anion Gap 10.0 (6-13) 03/23/21 05:33 BUN 14 mg/dL (6-20) 03/23/21 05:33 Creatinine 0.6 mg/dL (0.4-1.0) 03/23/21 05:33 Estimated GFR (MDRD) 104 (>89) 03/23/21 05:33 Glucose 100 mg/dL (70-100) 03/23/21 05:33 Calcium 8.8 mg/dL (8.5-10.3) 03/23/21 05:33 Phosphorus 3.4 mg/dL (2.5-4.6) 03/23/21 05:33 Magnesium 2.1 mg/dL (1.7-2.8) 03/23/21 05:33 Iron 44 ug/dL (28-170) 03/23/21 08:40 TIBC 402 ug/dL (250-450) 03/23/21 08:40 % Saturation 11 % (20-50) L 03/23/21 08:40 Transferrin 287 mg/dL (192-382) 03/23/21 08:40 Ferritin 23.0 ng/mL (11.0-306.8) 03/23/21 08:40 Total Bilirubin 1.1 mg/dL (0.2-1.0) H 03/21/21 14:43 AST 15 IU/L (10-42) 03/21/21 14:43 ALT 12 IU/L (10-60) 03/21/21 14:43 Alkaline Phosphatase 56 IU/L (42-121) 03/21/21 14:43 Lactate Dehydrogenase 209 IU/L (91-225) 03/23/21 08:40 B-Natriuretic Peptide 179 pg/mL (5-100) H 03/23/21 05:33 Total Protein 7.0 g/dL (6.7-8.2) 03/21/21 14:43 Albumin 3.7 g/dL (3.2-5.5) 03/21/21 14:43 Globulin 3.3 g/dL (2.1-4.2) 03/21/21 14:43 Albumin/Globulin Ratio 1.1 (1.0-2.2) 03/21/21 14:43 Lipase 20 U/L (22-51) L 03/21/21 14:43 Vitamin B12 320 pg/mL (180-914) 03/23/21 08:40 25-OH Vitamin D Total 46 ng/mL (30-100) 03/22/21 14:19 Nasal Adenovirus (PCR) NOT DETECTED 03/21/21 17:41 Nasal B. parapertussis DNA (PCR) NOT DETECTED 03/21/21 17:41 Nasal Coronavir 229E PCR NOT DETECTED 03/21/21 17:41 Nasal Coronavir HKU1 PCR NOT DETECTED 03/21/21 17:41 Nasal Coronavir NL63 PCR NOT DETECTED 03/21/21 17:41 Nasal Coronavir OC43 PCR NOT DETECTED 03/21/21 17:41 Nasal Enterovir/Rhinovir PCR NOT DETECTED 03/21/21 17:41 Nasal Influenza B PCR NOT DETECTED 03/21/21 17:41 Nasal Influenza A PCR NOT DETECTED 03/21/21 17:41 Nasal Parainfluen 1 PCR NOT DETECTED 03/21/21 17:41 Nasal Parainfluen 2 PCR NOT DETECTED 03/21/21 17:41 Nasal Parainfluen 3 PCR NOT DETECTED 03/21/21 17:41 Nasal Parainfluen 4 PCR NOT DETECTED 03/21/21 17:41 Nasal RSV (PCR) NOT DETECTED 03/21/21 17:41 Nasal Screen MRSA (PCR) NEGATIVE (NEGATIVE) 03/21/21 20:10 Nasal B.pertussis DNA PCR NOT DETECTED 03/21/21 17:41 Nasal C.pneumoniae (PCR) NOT DETECTED 03/21/21 17:41 Corwin Human Metapneumo PCR NOT DETECTED 03/21/21 17:41 Nasal M.pneumoniae (PCR) NOT DETECTED 03/21/21 17:41 Nasal SARS-CoV-2 (PCR) NOT DETECTED 03/21/21 17:41 ABX Reporting Has patient been on IV antibiotics over the past 48 hours?: No Current Medications - Current Medications Current Medications: Active Medications Acetaminophen (Acetaminophen 325 Mg Tablet) 650 mg PO Q4HR PRN PRN Reason: Pain 1 to 4 Last Admin: 03/22/21 10:20 Dose: 650 mg Aspirin (Aspirin Ec 81 Mg Tablet) 81 mg PO DAILY [facility] Last Admin: 03/23/21 09:36 Dose: 81 mg Carvedilol (Carvedilol 12.5 Mg Tablet) 25 mg PO BID [facility] Last Admin: 03/23/21 12:37 Dose: Not Given Cholecalciferol (Cholecalciferol 25 Mcg Tablet) 50 mcg PO DAILY [facility] Last Admin: 03/23/21 09:33 Dose: 50 mcg Furosemide (Furosemide 20 Mg/2 Ml Vial) 20 mg IVP DAILY [facility] Last Admin: 03/23/21 09:23 Dose: 20 mg Hydralazine HCl (Hydralazine 25 Mg Tablet) 50 mg PO TID [facility] Last Admin: 03/23/21 14:34 Dose: 50 mg Hydralazine HCl (Hydralazine Inj 20 Mg/Ml Vial) 10 mg IVP QID PRN PRN Reason: Hypertensive Emergency Lorazepam (Lorazepam 0.5 Mg Tablet) 0.5 mg PO DAILY PRN PRN Reason: Anxiety Losartan Potassium (Losartan 50 Mg Tablet) 100 mg PO DAILY [facility] Last Admin: 03/23/21 09:36 Dose: 100 mg Nystatin (Nystatin Powder 15 Gm) 2 applic TOP BID [facility] Last Admin: 03/23/21 10:00 Dose: 2 applic Ondansetron HCl (Ondansetron 4 Mg/2 Ml Vial) 4 mg IVP Q6HR PRN PRN Reason: Nausea / Vomiting Oxycodone HCl (Oxycodone 5 Mg Tablet) 5 mg PO Q4HR PRN PRN Reason: Pain 5 to 7 Potassium Chloride (Potassium Chloride 10 Meq Capsule) 10 meq PO 0800 [facility] Last Admin: 03/23/21 09:32 Dose: 10 meq Sodium Chloride (Sodium Chloride Flush 0.9% 10 Ml Syringe) 10 ml IVP PRN PRN PRN Reason: NEEDED PER PROVIDER ORDERS Last Admin: 03/22/21 18:11 Dose: 10 ml Sodium Chloride (Sodium Chloride Flush 0.9% 10 Ml Syringe) 10 ml IVP 0100,0900,1700 [facility] Last Admin: 03/23/21 09:14 Dose: 10 ml Carvedilol [Coreg] 25 mg PO BID 07/26/12 Aspirin [[place] Aspirin] 81 mg PO DAILY 02/04/21 Hydralazine HCl 50 mg PO TID 02/04/21 Losartan Potassium [Cozaar] 100 mg PO DAILY 02/04/21 [place]-3/Dha/Epa/Fish Oil [Fish Oil 1,000 mg Softgel] 1 cap PO BID 02/04/21 Furosemide [Lasix] 20 mg PO DAILY 03/21/21 Potassium Chloride [Micro-K] 20 meq PO 0800 03/21/21 Cholecalciferol (Vitamin D3) [Vitamin D3] 50 mcg PO DAILY 03/22/21
[2021-03-24] MEDS: ACETAMINOPHEN 325 MG TABLET PO PRN (02:19)
[2021-03-24] MEDS: SODIUM CHLORIDE FLUSH 0.9% 10 ML SYRINGE IVP SCH ×2 (05:17→08:56)
[2021-03-24 06:00] LABS: BASOPHILS % (AUTO) 0.8 %; EOSINOPHILS # (AUTO) 0.2 10^3/uL (0.0-0.7); HCT - HEMATOCRIT 32.4 % (37.0-47.0); HGB - HEMOGLOBIN 9.4 g/dL (12.0-16.0); LYMPHOCYTES # (AUTO) 1.2 10^3/uL (1.5-3.5); LYMPHOCYTES % (AUTO) 24.8 %; MEAN CORPUSCULAR HEMOGLOBIN 25.3 pg (27.0-31.0); MEAN CORPUSCULAR VOLUME 87.3 fL (81.0-99.0); MONOCYTES # (AUTO) 0.5 10^3/uL (0.0-1.0); MONOCYTES % (AUTO) 10.7 %; NEUTROPHILS # (AUTO) 2.9 10^3/uL (1.5-6.6); NEUTROPHILS % (AUTO) 59.3 %; PLT - PLATELET COUNT 198 10^3/uL (130-450); RED BLOOD COUNT 3.71 10^6/uL (4.20-5.40); RED CELL DISTRIBUTION WIDTH 22.9 % (12.0-15.0)
[2021-03-24 06:06] LABS: SLIDE REVIEW? Indicated
[2021-03-24 06:11] LABS: CALCIUM 8.8 mg/dL (8.5-10.3); CREATININE 0.6 mg/dL (0.4-1.0); POTASSIUM 2.8 mmol/L (3.5-5.0)
[2021-03-24 06:23] LABS: PLATELET ESTIMATE, MANUAL NORMAL (130-450,000) (NORMAL); PLATELET MORPHOLOGY NORMAL APPEARANCE (NORMAL); WBC MORPHOLOGY (MULTIPLE) NORMAL APPEARANCE (NORMAL)
[2021-03-24] MEDS: POTASSIUM CHLOR 10 MEQ/100 ML 10 MEQ/100 ML BAG IV SCH ×4 (06:50→11:24)
[2021-03-24] MEDS: hydrALAZINE 25 MG TABLET PO SCH ×2 (06:56→15:08)
[2021-03-24] MEDS ORDERED: POTASSIUM CHLORIDE 20 MEQ TABLET PO ONE (07:33)
[2021-03-24] MEDS ORDERED: POTASSIUM CHLORIDE 10 MEQ CAPSULE PO SCH (08:00)
[2021-03-24] MEDS: ASPIRIN EC 81 MG TABLET PO SCH (08:51)
[2021-03-24] MEDS: CHOLECALCIFEROL 25 MCG TABLET PO SCH (08:52)
[2021-03-24] MEDS: LOSARTAN 50 MG TABLET PO SCH (08:52)
[2021-03-24] MEDS: carvediloL 12.5 MG TABLET PO SCH (08:53)
[2021-03-24] MEDS: NYSTATIN POWDER 15 GM TOP SCH (08:58)
[2021-03-24] MEDS: FUROSEMIDE 20 MG/2 ML VIAL IVP SCH (08:58)
--- NOTE | 2021-03-24 12:03 | Discharge Plan ---
Discharge Plan Problem Reviewed?: Yes Disposition: Home, Self Care Condition: Stable Prescriptions: Nystatin [Nystop] 1 applic TOP BID PRN #1 bottle PRN Reason: skin rash Diet: Cardiac Activity Restrictions: Activity as Tolerated Shower Restrictions: No (fall precaution) Instruction Topics: Heart Failure, Heart Failure Coping, Heart Failure Diet Changes Health Concerns: You feel much better after you had diuretics and use CPAP at night. you may resume you home medications. strongly advise you use CPAP at the night. You may followup with PCP, and stucco mason and [facility] as out-pt Plan of Treatment: as the above. Care Goals: Stabilization and improvement of your medical conditions Assessment: Discussed the care plan with you in detail, answered your questions, you understood Additional Instructions or Follow Up instructions: You may follow-up with your PCP in 1 week, and have BMP check and serum potassium monitor, follow-up your stucco mason and [employer] [facility] as outpatient. should your symptoms return or worse, you may present to ER or call 911 for help Follow-[facility] Care: [facility], [facility], [facility] No Smoking: If you smoke, Please STOP! Call for help.
[2021-03-24 13:14] VITALS: BP 137/81
--- NOTE | 2021-03-24 14:15 | DISCHARGE SUMMARY ---
Discharge Summary Admit Date: 03/21/21 Discharge Date: 03/24/21 Discharging Provider: Andres Leo Condition at Discharge: Stable Discharge Disposition: Home, Self Care Discharge Facility Name: home - DIAGNOSES Discharge Diagnoses with Status of Each Condition: (1) SVT (supraventricular tachycardia) resolved. pt has no more SVT. pt feel much better. resume home meds Coreg (2)hypokalemia resolved, resume home PO potassium (3) Hypoxia resolved as pt's baseline. pt feel much better for her breathing. she had 100% sat on 4 liter of O2, she is home O2 dependent. (4) Congestive heart failure unfortunately we do not have ECHO study now. After diuretics, pt feel much better and her hypoxia resolved. resume her home meds, followup with her PCP and wagon driver (5) Sleep apnea pt tolerated her CPAP. she feel much better after she had CPAP on the night. strongly advise pt have CPAP at night, followup with pulomonologist as out-pt. (6) Carbon dioxide retention improved, carbon dioxide reduced. pt feel much better. pt is alert and oriented plus 4. resume home meds, strongly advise pt keep medical compliant to have CPAP on the night. (7) HTN (hypertension) stable, resume home meds (8) Morbid obesity with BMI of 60.0-69.9, adult As per Hx. advise pt safely loss of her weight (10)medical non compliant pt did not take her CPAP in the home which is likely the cause of her CO2 retention, educate pt and strongly advise pt do the medical compliance to have CPAP at the night. - HPI History of Present Illness: refer from Dr. Mendez's HPI on 03/21/21 This is a 55 y/o WF with morbid obesity (BMI 65), HTN, anxiety, and recently diagnosed with CHF when hospitalized at [facility] in Jan 2021 (and we do not know if this is systolic or diastolic heart failure), and was sent home with new oxygen and a new BIPAP which she stated she uses only part of the night because she is claustrophobic. Her O2 order is set at 3.5 L continuously. She had bloodwork through her PCP office and results done recently were abnormal and she was contacted today and told to go to the ER. Here the BMP showed high bicarb and an ABG showed compensated respiratory acidosis (she has CO2 retention with a pCO2 of 83 on this ABG). She described being SOB and her CXR shows vascular congestion. She is being placed in Observation to administer iv diuretics, obtain the discharge summary from [facility] regarding LVEF and to provide CPAP/BIPAP treatment. - ALLERGIES Allergies/Adverse Reactions: Allergies Allergy/AdvReac Type Severity Reaction Status Date / Time No Known Drug Allergies Allergy Verified 03/21/21 13:55 - MEDICATIONS Home Medications: Ambulatory Orders Medication Instructions Recorded Confirmed Carvedilol [Coreg] 25 mg PO BID 07/26/12 03/22/21 Aspirin [[place] Aspirin] 81 mg PO DAILY 02/04/21 03/22/21 Hydralazine HCl 50 mg PO TID 02/04/21 03/22/21 Losartan Potassium [Cozaar] 100 mg PO DAILY 02/04/21 03/22/21 [place]-3/Dha/Epa/Fish Oil [Fish Oil 1 cap PO BID 02/04/21 03/22/21 1,000 mg Softgel] Furosemide [Lasix] 20 mg PO DAILY 03/21/21 03/21/21 Potassium Chloride [Micro-K] 20 meq PO 0800 03/21/21 03/22/21 Cholecalciferol (Vitamin D3) 50 mcg PO DAILY 03/22/21 03/22/21 [Vitamin D3] Nystatin [Nystop] 1 applic TOP BID PRN #1 bottle 03/24/21 - PHYSICAL EXAM AT DISCHARGE General Appearance: positive: No acute distress, Alert. negative: Lethargic Eyes Bilateral: positive: Normal inspection, No lid inflammation ENT: positive: ENT inspection nml, No signs of dehydration. negative: Purulent nasal drainage Neck: positive: Nml inspection, Trachea midline. negative: Tracheal deviation Respiratory: positive: Chest non-tender, No respiratory distress. negative: Wheezes, Rales Cardiovascular: positive: Regular rate & rhythm. negative: Tachycardia, Bradycardia, Systolic murmur Peripheral Pulses: positive: 2+ Abdomen: positive: Non-tender, Nml bowel sounds. negative: Tenderness Back: positive: Nml inspection Skin: positive: Color nml, Warm, Dry. negative: Cyanosis Extremities: positive: Non-tender, Full ROM, Nml appearance Neurologic/Psychiatric: positive: Oriented x3, Motor nml, Sensation nml. negative: Weakness, Sensory loss, Facial droop, Slurred/abnml speech, Depressed mood/affect - LABS Result Diagrams: 03/24/21 05:14 03/24/21 13:57 - FOLLOW UP Follow Up: You feel much better after you had diuretics and use CPAP at night. you may resume you home medications. strongly advise you use CPAP at the night. You may followup with PCP, and wagon driver and Signal Helper as out-pt You may follow-up with your PCP in 1 week, and have BMP check and serum potassium monitor, follow-up your wagon driver and Signal Helper as outpatient. should your symptoms return or worse, you may present to ER or call 911 for help - TIME SPENT Time Spent in Discharge (Minutes): 30
== END 2021-03-24 16:10 | disposition home or self-care (01) | DRG 292 ==
LOC: ED 13:42 → UNDOADMOB 18:30 → ICU 18:30 → MS3 18:30 → ICU 18:59 → MS3 18:59 → OBSVTOIN 03-23 11:27
PROVIDERS: ADMIT Internal Medicine; ATTEND Nurse Practitioner Gerontology
DX: I11.0 Hypertensive heart disease with heart failure (principal); E87.2 Acidosis; Z68.44 Body mass index [BMI] 60.0-69.9, adult; I47.1 Supraventricular tachycardia; I50.9 Heart failure, unspecified; G47.30 Sleep apnea, unspecified; E66.01 Morbid (severe) obesity due to excess calories; Z91.19 Patient's noncompliance with other medical treatment and regimen; E87.6 Hypokalemia; R09.02 Hypoxemia; F41.9 Anxiety disorder, unspecified; Z79.82 Long term (current) use of aspirin; Z79.899 Other long term (current) drug therapy; I27.81 Cor pulmonale (chronic); Z20.822 Contact with and (suspected) exposure to COVID-19
CPT/HCPCS: 0202U; 36415; 36600; 71045; 80048; 80053; 82306; 82607; 82728; 82803; 83540; 83615; 83690; 83735; 83880; 84100; 84132; 84466; 85025; 85045; 87150; 93005; 94660; 96374; 96376; 99284; 99285; A9270; G0378; J1940

== ENCOUNTER 2021-07-23 16:45 | Outpatient (CLI) | payer OTHER | END 2021-07-23 16:46 | disposition critical access hospital (66) | LOC: EMS 16:45 | DX: R06.03 Acute respiratory distress (principal) | CPT/HCPCS: A0425; A0427 ==

== ENCOUNTER 2021-07-23 16:59 | Inpatient (IN) | payer OTHER ==
--- NOTE | 2021-07-23 17:22 | ED Physician Documentation ---
History of Present Illness - Stated complaint Stated Complaint: SOA/SYNCOPE - Additonal information Additional information: 55-year-old female who has a history of congestive heart failure was brought to the emergency department after being found by family unresponsive. She does wear oxygen during the day at 5 L and uses CPAP at night. Reports her typical saturations are 90 to 94%. She had gone out to get a COVID test in order to prepare for her pulmonary appointment on Sunday. She states that she ran out of oxygen. Her family found her unresponsive and when EMS arrived she had very low sats that were difficult to obtain. Initial saturations were read at less than 80%. As she was unresponsive they were getting prepared to intubate her when she started to arouse. She arrives here in the emergency department on 15 L NRB saturating 94%. EMS attempted to place the patient on a CPAP mask but she did not tolerate it. She is mildly tachypneic and ssomnolent. She reports that she remembers everything that happened. She is not sure why she ran out of oxygen but is denying any chest pain. States that her dyspnea is currently at baseline. Reports that her chronic lower extremity swelling is unchanged. Prior to the events of today she had been feeling at her usual health. Review of Systems Constitutional: reports: Reviewed and negative Nose: reports: Reviewed and negative Throat: reports: Reviewed and negative Cardiac: denies: Chest pain / pressure, Palpitations Respiratory: reports: Dyspnea. 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: None : None Psych: Depression, Anxiety Musculoskeletal: Chronic back pain (improved after lumbar surgery was done) Derm: Other (Had skin cancer of left cheek that was removed) - Past Surgical History Past Surgical History: Yes Ortho: Spine surgery Derm: Skin cancer surgery - Present Medications Home Medications: Ambulatory Orders Medication Instructions Recorded Confirmed Carvedilol [Coreg] 25 mg PO BID 07/26/12 03/22/21 Aspirin [[place] Aspirin] 81 mg PO DAILY 02/04/21 03/22/21 Hydralazine HCl 50 mg PO TID 02/04/21 03/22/21 Losartan Potassium [Cozaar] 100 mg PO DAILY 02/04/21 03/22/21 [place]-3/Dha/Epa/Fish Oil [Fish Oil 1 cap PO BID 02/04/21 03/22/21 1,000 mg Softgel] Furosemide [Lasix] 20 mg PO DAILY 03/21/21 03/21/21 Potassium Chloride [Micro-K] 20 meq PO 0800 03/21/21 03/22/21 Cholecalciferol (Vitamin D3) 50 mcg PO DAILY 03/22/21 03/22/21 [Vitamin D3] Nystatin [Nystop] 1 applic TOP BID PRN #1 bottle 03/24/21 - Allergies Allergies/Adverse Reactions: Allergies Allergy/AdvReac Type Severity Reaction Status Date / Time No Known Drug Allergies Allergy Verified 07/23/21 17:10 - Social History Does the pt smoke?: No Smoking Status: Former smoker Does the pt drink ETOH?: Yes Does the pt have substance abuse?: No - Immunizations Immunizations are current?: Yes - POLST Patient has POLST: No PD ED PE EXPANDED - General General: Alert, Other (Obese) - HEENT HEENT: Atraumatic, PERRL, EOMI, Dry mucous membranes - Neck Neck: Supple w/out meningeal sx. No: Adenopathy - Cardiac Cardiac: Regular Rate, Murmur Present, Radial strong equal, Pedal strong equal, Cap refill < 2 sec - Respiratory Respiratory: Other (tachypnea 30's; diminished breath sounds bases; fine crackl es throughout) - Abdomen Abdomen: Normal Bowel sounds. No: Tender to palpation - Extremities Extremities: Normal, Pedal edema bilateral (Bilateral lower extremity edema unchanged from baseline. 2+ edema). No: Deformity, Tenderness - Neuro Neuro: Lethargic, CNII-XII intact, Normal speech - GCS Eye Opening: To Voice (arouses easily; no focal deficits; falls asleep rapidly) Motor: Obeys Commands Verbal: Oriented Total: 14 Results - Vitals Vitals: Vital Signs - 24 hr 07/23/21 07/23/21 07/23/21 17:10 17:14 17:44 Temperature 37.2 C Heart Rate 82 82 79 Respiratory 21 33 H Rate Blood Pressure 166/86 H 149/95 H O2 Saturation 89 L 92 93 07/23/21 07/23/21 18:14 18:30 Temperature Heart Rate 94 72 Respiratory 26 H 18 Rate Blood Pressure 136/66 H 140/68 H O2 Saturation 91 L 90 L Oxygen O2 Source BIPAP Oxygen Flow Rate 15 - EKG (time done) 1715 Rate: Rate (enter#) (81) Rhythm: NSR [place]: Normal Intervals: Normal MT. No: Prolonged QT QRS: Normal Ischemia: Normal ST segments Compare to prior EKG: Unchanged from prior EKG Computer interpretation: Agree with computer - Labs Labs: Laboratory Tests 07/23/21 07/23/21 07/23/21 17:20 17:27 17:27 WBC 4.3 L RBC 3.59 L Hgb 9.4 L Hct 34.2 L MCV 95.3 MCH 26.2 L MCHC 27.5 L RDW 20.2 H Plt Count 160 MPV 9.8 Neut # (Auto) 3.2 Lymph # (Auto) 0.5 L Potter # (Auto) 0.4 Eos # (Auto) 0.1 Baso # (Auto) 0.0 Absolute Nucleated RBC 0.00 Nucleated RBC % 0.0 Bld Gas Analysis Time 1720 Sample Site LEFT RADIAL ABG pH 7.25 L ABG pCO2 113 H* ABG pO2 65 L ABG HCO3 47.9 H ABG Total CO2 51.3 H* ABG O2 Saturation 90 L ABG Base Excess 16.6 H Juan Jose Test POSITIVE O2 Delivery Device NON REBREATHER MASK O2 Liters/Min 10.00 Sodium 146 H Potassium 3.3 L Chloride 91 L Carbon Dioxide > 45 H* Anion Gap 9.0 BUN 10 Creatinine 0.6 Estimated GFR (MDRD) 104 Glucose 128 H Calcium 9.0 Total Bilirubin 1.2 H AST 16 ALT 10 Alkaline Phosphatase 47 Troponin I High Sens B-Natriuretic Peptide Total Protein 6.9 Albumin 3.6 Globulin 3.3 Albumin/Globulin Ratio 1.1 Lipase 25 Nasal Adenovirus (PCR) Nasal B. parapertussis DNA (PCR) Nasal Coronavir 229E PCR Nasal Coronavir HKU1 PCR Nasal Coronavir NL63 PCR Nasal Coronavir OC43 PCR Nasal Enterovir/Rhinovir PCR Nasal Influenza B PCR Nasal Influenza A PCR Nasal Parainfluen 1 PCR Nasal Parainfluen 2 PCR Nasal Parainfluen 3 PCR Nasal Parainfluen 4 PCR Nasal RSV (PCR) Nasal B.pertussis DNA PCR Nasal C.pneumoniae (PCR) [place] Human Metapneumo PCR Nasal M.pneumoniae (PCR) Nasal SARS-CoV-2 (PCR) 07/23/21 07/23/21 07/23/21 17:27 17:27 17:36 WBC RBC Hgb Hct MCV MCH MCHC RDW Plt Count MPV Neut # (Auto) Lymph # (Auto) Potter # (Auto) Eos # (Auto) Baso # (Auto) Absolute Nucleated RBC Nucleated RBC % Bld Gas Analysis Time Sample Site ABG pH ABG pCO2 ABG pO2 ABG HCO3 ABG Total CO2 ABG O2 Saturation ABG Base Excess Juan Jose Test O2 Delivery Device O2 Liters/Min Sodium Potassium Chloride Carbon Dioxide Anion Gap BUN Creatinine Estimated GFR (MDRD) Glucose Calcium Total Bilirubin AST ALT Alkaline Phosphatase Troponin I High Sens 17.4 H* B-Natriuretic Peptide 950 H Total Protein Albumin Globulin Albumin/Globulin Ratio Lipase Nasal Adenovirus (PCR) NOT DETECTED Nasal B. parapertussis DNA (PCR) NOT DETECTED Nasal Coronavir 229E PCR NOT DETECTED Nasal Coronavir HKU1 PCR NOT DETECTED Nasal Coronavir NL63 PCR NOT DETECTED Nasal Coronavir OC43 PCR NOT DETECTED Nasal Enterovir/Rhinovir PCR NOT DETECTED Nasal Influenza B PCR NOT DETECTED Nasal Influenza A PCR NOT DETECTED Nasal Parainfluen 1 PCR NOT DETECTED Nasal Parainfluen 2 PCR NOT DETECTED Nasal Parainfluen 3 PCR NOT DETECTED Nasal Parainfluen 4 PCR NOT DETECTED Nasal RSV (PCR) NOT DETECTED Nasal B.pertussis DNA PCR NOT DETECTED Nasal C.pneumoniae (PCR) NOT DETECTED [place] Human Metapneumo PCR NOT DETECTED Nasal M.pneumoniae (PCR) NOT DETECTED Nasal SARS-CoV-2 (PCR) NOT DETECTED PD MEDICAL DECISION MAKING - ED course Complexity details: reviewed old records, reviewed results, re-evaluated patient, considered differential, d/w patient ED course: 55-year-old female who carries a history of morbid obesity, congestive heart failure as well as chronic CO2 retention is brought to the emergency department after being found down at home unresponsive. She had reportedly ran out of oxygen. For EMS she had initial saturations less than 80%. While they were preparing to intubate her she began to arouse and she was placed on a 15 L nonrebreather mask and arrives to the emergency department awake though somewhat somnolent. Initial saturations are 94%. We did obtain an ABG upon presentation to the ER and noted that she has a CO2 of 113. Her pH is 7.25. PaO2 was 65. We then placed her on BiPAP. Our goal saturations were 90% targeting CO2's of 50-65. She does have a hx of associated cor pulmonale. Her chest x-ray shows significant cardiomegaly as well as volume overload. Her BNP is 950. she was administered 40 mg of lasix. In theInitial troponin is 17. This likely represents a demand ischemia setting of heart failure. Screening EKG is sinus rhythm without ischemic changes. I have discussed this case with Dr. Portia Mendez who agrees to admit the patient for further observation and management of her hypercarbic respiratory failure. Departure - Departure Disposition: ED Place in Observation Clinical Impression: Acute hypercapnic respiratory failure CHF (congestive heart failure) Qualifiers: Heart failure type: unspecified Heart failure chronicity: acute on chronic Qualified Code(s): I50.9 - Heart failure, unspecified
[2021-07-23 17:32] LABS: ABG PH 7.25 (7.35-7.45)
[2021-07-23 17:33] LABS: ABG BASE EXCESS 16.6 mmol/L (-2.0-3.0); ABG HCO3 47.9 mmol/L (22.0-26.0); ABG OXYGEN SATURATION 90 % (94-98); ABG PO2 65 mmHg (80-100); ALLEN TEST POSITIVE
[2021-07-23 17:37] LABS: ABG PCO2 113 mmHg (34-45); ABG TCO2 51.3 MMOL/L (21.0-29.0)
[2021-07-23 17:45] LABS: WHITE BLOOD COUNT 4.3 x10^3/uL (4.8-10.8)
[2021-07-23 17:46] LABS: BASOPHILS % (AUTO) 0.5 %; EOSINOPHILS % (AUTO) 1.2 %; HCT - HEMATOCRIT 34.2 % (37.0-47.0); HGB - HEMOGLOBIN 9.4 g/dL (12.0-16.0); LYMPHOCYTES % (AUTO) 11.2 %; MEAN CORPUSCULAR HEMOGLOBIN 26.2 pg (27.0-31.0); MEAN CORPUSCULAR HGB CONC 27.5 g/dL (32.0-36.0); MEAN CORPUSCULAR VOLUME 95.3 fL (81.0-99.0); MEAN PLATELET VOLUME 9.8 fL (7.9-10.8); MONOCYTES % (AUTO) 9.8 %; NEUTROPHILS % (AUTO) 74.3 %; PLT - PLATELET COUNT 160 10^3/uL (130-450); RED BLOOD COUNT 3.59 10^6/uL (4.20-5.40); RED CELL DISTRIBUTION WIDTH 20.2 % (12.0-15.0)
[2021-07-23 17:47] LABS: EOSINOPHILS # (AUTO) 0.1 10^3/uL (0.0-0.7); LYMPHOCYTES # (AUTO) 0.5 10^3/uL (1.5-3.5); MONOCYTES # (AUTO) 0.4 10^3/uL (0.0-1.0); NEUTROPHILS # (AUTO) 3.2 10^3/uL (1.5-6.6)
[2021-07-23 18:00] LABS: ALBUMIN 3.6 g/dL (3.2-5.5); ALBUMIN/GLOBULIN RATIO 1.1 (1.0-2.2); ALKALINE PHOSPHATASE 47 IU/L (42-121); ALT ALANINE AMINOTRANSFERASE 10 IU/L (10-60); AST ASPARTATE AMINOTRANSFERASE 16 IU/L (10-42); BILIRUBIN,TOTAL 1.2 mg/dL (0.2-1.0); BUN - BLOOD UREA NITROGEN 10 mg/dL (6-20); CHLORIDE 91 mmol/L (101-111); CREATININE 0.6 mg/dL (0.4-1.0); GFR - MDRD 104 (>89); GLUCOSE 128 mg/dL (70-100); LIPASE 25 U/L (22-51); POTASSIUM 3.3 mmol/L (3.5-5.0); SODIUM 146 mmol/L (135-145); TOTAL PROTEIN 6.9 g/dL (6.7-8.2)
[2021-07-23 18:02] LABS: CARBON DIOXIDE - CO2 > 45 mmol/L (21-32)
[2021-07-23] MEDS ORDERED: FUROSEMIDE 40 MG/4 ML VIAL IVP STA (18:22)
[2021-07-23 18:47] LABS: B. PARAPERTUSSIS- RESP PCR PAN NOT DETECTED; B. PERTUSSIS- RESP PCR PANEL NOT DETECTED; C. PNEUMONIAE- RESP PCR PANEL NOT DETECTED; CORONAVIRUS 229E-RESP PCR NOT DETECTED; CORONAVIRUS HKU1-RESP PCR NOT DETECTED; CORONAVIRUS NL63-RESP PCR NOT DETECTED; CORONAVIRUS OC43-RESP PCR NOT DETECTED; HUMAN METAPNEUMOVIRUS NOT DETECTED; INFLUENZA A- RESP PCR PANEL NOT DETECTED; INFLUENZA B - RESP PCR PANEL NOT DETECTED; M. PNEUMONIAE- RESP PCR PANEL NOT DETECTED; PARAINFLUENZA VIRUS 1 NOT DETECTED; PARAINFLUENZA VIRUS 2 NOT DETECTED; PARAINFLUENZA VIRUS 3 NOT DETECTED; PARAINFLUENZA VIRUS 4 NOT DETECTED; RHINOVIRUS/ENTEROVIRUS NOT DETECTED; RSV- RESP PCR PANEL NOT DETECTED; SARS-CoV-2 -RESP PCR PANEL NOT DETECTED
[2021-07-23] MEDS ORDERED: SODIUM CHLORIDE FLUSH 0.9% 10 ML SYRINGE IVP PRN (18:51)
[2021-07-23] MEDS ORDERED: oxyCODONE 5 MG TABLET PO PRN (18:51)
[2021-07-23] MEDS ORDERED: ONDANSETRON 4 MG/2 ML VIAL IVP PRN (18:51)
[2021-07-23] MEDS ORDERED: ONDANSETRON ODT 4 MG TABLET TL PRN (18:51)
[2021-07-23 18:55] LABS: PLATELET ESTIMATE, MANUAL NORMAL (130-450,000) (NORMAL); PLATELET MORPHOLOGY NORMAL APPEARANCE (NORMAL); SLIDE REVIEW? Indicated; WBC MORPHOLOGY (MULTIPLE) NORMAL APPEARANCE (NORMAL)
--- NOTE | 2021-07-23 20:07 | HISTORY & PHYSICAL EXAMINATION ---
Chief Complaint - Chief Complaint Chief Complaint: Shortness of Breath/Syncope <Sharri Swift - Last Filed: 07/23/21 23:39> History of Present Illness - Admitted From Admitted From:: Home - History Obtained From Records Reviewed: [facility], Past hospital stay History obtained from: Patient, EMAR Exam Limitations: Pt was on BIPAP and would tire from speaking <Sharri Swift - Last Filed: 07/23/21 23:39> - History of Present Illness HPI Comment/Other: Pt presents from home. Pt was found by family to be somnolent. At baseline pt uses 5L NC of home oxygen since January 2021. Pt left the house earlier today to seek out COVID 19 test and did not have replacement tank for oxygen tank that ran out when she was away from her home. When she got home, pt struggled in chair while family member struggled to connect oxygen concentrator. Then pt has a syncopal episode. In the ED, pt was placed on BIPAP machine and was more alert than initial presentation to EMS. Pt was found to be in respiratory acidosis and hypercarbic with ABG drawn in ED with a blood pH of 7.25 and a PCO2 of 113. Chest XR shows cardiomegaly. Pt found with elevated BNP and given IV lasix while in ED. Pt has known hx of PILAR, morbid obesity, obesity hypoventilation syndrome, CHF with pr EF, chronic back pain, HTN, depression w/ anxiety, cor pumonale, and GERD. Pt was diagnosed with PILAR in 2016 and advised to use CPAP machine. Pt did not start using CPAP for sleep January 2021. Pt reports using CPAP with variable adherence. (Sharri Swift) History - Past Medical History Cardiovascular: reports: Congestive heart failure, Hypertension, Other (cor pulmonale ) Respiratory: reports: Sleep apnea (diagnosed with sleep study in 2017, but no CPAP use until 2 mos ago), CPAP use Neuro: reports: None (But aunt has MS and she says she "may have it too but it was never confirmed") Endocrine/Autoimmune: reports: Other (Benign adrenal adenoma. Seen by endocrinology in 06/2015) GI: reports: GERD VP SCIENTIFIC: reports: None, Other (Post menopausal bleeding 10/2019. Negative endometrial biopsy) : reports: None Psych: reports: Depression, Anxiety Musculoskeletal: reports: Chronic back pain (improved after lumbar surgery was done) Derm: reports: Other (Had skin cancer of left cheek that was removed) MRSA Hx?: No - Past Surgical History Ortho: reports: Spine surgery /VP SCIENTIFIC: reports: Other (; pt endorses one miscarriage) Derm: reports: Skin cancer surgery - Family & Social History Family History: Mother: (Mom from [place] d/t complications from breast cancer treatment), Alcoholism, CAD, Cancer, Hyperlipidemia, [place], Father: Dece ased, Sister: Alive and Well (Brothers have heart disease and diabetes), Seizure Disorder, Brother: Alive and Well Living arrangement: At home, Other Living Situation: With family, Other (Lives with adopted daughter, son-in-law, and grandchildren) Social History Notes: Pt lives with adopted daughter, son-in-law, and grandch richard. 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 Pt smoked from age ~[age] years old, smoking about 2 packs a day. 32 pack years. Pt has lived on [facility] since 2005. Previously she lived in [place], [place]. She moved to [facility] to help with mother's breast cancer treatment. Pt has two daughters. One is biological, the other adopted. - Substance History Use: Uses substance without health or social issues: Alcohol, Other (Pt does not report drinking ETOH anymore) Abuse: Recurrent use of substance despite neg consequences: NONE Tobacco Details: Cigarettes, Other (smoked from age [age]. 32 pack years) - POLST Patient has POLST: No <Sharri Swift - Last Filed: 07/23/21 23:39> Meds/Allgy <Sharri Swift - Last Filed: 07/23/21 23:39> <Portia Mendez - Last Filed: 07/23/21 23:44> - Home Medications Home Medications: Ambulatory Orders Medication Instructions Recorded Confirmed Aspirin [[place] Aspirin] 81 mg PO DAILY 02/04/21 07/23/21 Losartan Potassium [Cozaar] 100 mg PO DAILY 02/04/21 07/23/21 [place]-3/Dha/Epa/Fish Oil [Fish Oil 1 cap PO BID 02/04/21 07/23/21 1,000 mg Softgel] Potassium Chloride [Micro-K] 20 meq PO 0800 03/21/21 07/23/21 Cholecalciferol (Vitamin D3) 50 mcg PO DAILY 03/22/21 07/23/21 [Vitamin D3] Nystatin [Nystop] 1 applic TOP BID PRN #1 bottle 03/24/21 07/23/21 Carvedilol [Coreg] 25 mg PO BID 07/23/21 07/23/21 Hydralazine HCl 100 mg PO TID 07/23/21 07/23/21 - Allergies Allergies/Adverse Reactions: Allergies Allergy/AdvReac Type Severity Reaction Status Date / Time No Known Drug Allergies Allergy Verified 07/23/21 17:10 Review of Systems - Constitutional Constitutional: reports: Fatigue (Reported increase in this past year), Weight loss (Pt reports 80lb weight loss since 01/2021) - Eyes Eyes: reports: Corrective lenses - Ears, Nose & Throat Ears, Nose & Throat: reports: Nosebleeds (d/t use of home oxygen) - Cardiovascular Cariovascular: reports: Palpitations, Edema (in feet bilaterally, reports no change), Exertional dyspnea - Gastrointestinal Gastrointestinal: reports: Constipation (r/t use of iron supplements), Poor appetite - Genitourinary Genitourinary: reports: Frequency (r/t lasix) - Musculoskeletal Musculoskeletal: reports: Back pain (chronic back pain) - Integumentary Integumentary: reports: Dryness (on arms bilaterally) - Psychiatric Psychiatric: reports: Depression, Anxiety - All Other Systems All Other Systems: reports: Reviewed and negative <Sharri Swift - Last Filed: 07/23/21 23:39> <Sharri Swift - Last Filed: 07/23/21 23:39> Prior Level of Functionality: Pt reports that she is able to care for herself at home and is able to ambulate without the use of assistive devices. Pt has been on medical leave from her job since January 2021 to manage present conditions. (Sharri Swift) Exam - Vital Signs Reviewed Vital Signs: Yes - Physical Exam General Appearance: positive: No acute distress, Alert, Other (During pt inte rview, pt was sitting in high fowlers with BIPAP mask in place. Pt was able to speak in full sentences, but required frequent breaks due to fatigue.) Eyes Bilateral: positive: Normal inspection, PERRL, EOMI ENT: positive: Dry mucous membranes Neck: positive: Nml inspection, Other (unable to evaluate JVD due to body habitus) Respiratory: positive: Chest non-tender, Rhonchi (on right side), Other (d iminished lung sounds on left side) Cardiovascular: positive: Regular rate & rhythm, Tachycardia Peripheral Pulses: positive: 2+ Abdomen: positive: Non-tender, Nml bowel sounds, No distention Back: positive: Nml inspection Skin: positive: Color nml, Warm, Dry Extremities: positive: Pedal edema, Other (Bilateral edema) Neurologic/Psychiatric: positive: Oriented x3, Mood/affect nml (Bilateral lower extremity edema, pt reports no changes from baseline) <Sharri Swift - Last Filed: 07/23/21 23:39> - Vital Signs Vital Signs: Vital Signs x48h Temp Pulse Pulse Resp BP BP Pulse Ox 07/23/21 21:00 66 15 149/71 H 98 07/23/21 20:32 73 24 156/80 H 92 07/23/21 19:37 36.1 C L 77 22 136/75 H 94 07/23/21 19:16 35.8 C L 77 24 135/71 H 93 07/23/21 19:00 65 18 135/71 H 93 07/23/21 18:30 72 18 140/68 H 90 L 07/23/21 18:14 94 26 H 136/66 H 91 L 07/23/21 17:44 79 33 H 149/95 H 93 07/23/21 17:14 82 92 07/23/21 17:10 37.2 C 82 21 166/86 H 89 L Conclusion/Plan - Problem List (1) Acute hypercapnic respiratory failure Conclusion/Plan: Pt was in respiratory acidosis in the ED with a arterial pH of 7.25. PCO2 of 113. Pt placed on BIPAP mask Plan: 1. Recheck ABGs 2. Adjust BIPAP settings as needed 3. Continued assessment of pt's oxygen requirements (2) Acute on chronic right-sided congestive heart failure Conclusion/Plan: Pt's BNP was 950 in the ED. Plan: 1. Continue giving IV lasix 2. recheck BNP in AM 3. monitor I/Os (3) Hypokalemia Conclusion/Plan: Pt's serum potassium was 3.3 in ED Plan: 1. Replace potassium PO 2. recheck BMP (4) Hypernatremia Conclusion/Plan: Pt was hypernatremic in ED 146 Plan: 1. recheck serum Na 2. Depending on result, give D5 IV (5) Obstructive sleep apnea Conclusion/Plan: Pt was diagnosed with PILAR in 2016. CPAP since January 2021. Used with variable compliance. Plan: 1. Pt education regarding use of PILAR and importance of compliance to prevent further deterioration of condition. (6) Decreased white blood cell count, unspecified Conclusion/Plan: Over the past two years, pt has had a consistent decrease in WBCs, Hgb, and platelets. Plan: 1. Trend WBC results and follow outpatient Qualifiers: Leukopenia type: unspecified Qualified Code(s): D72.819 - Decreased white blood cell count, unspecified - Lab Results Fish Bones: 07/23/21 17:27 07/23/21 22:17 <Sharri Swift - Last Filed: 07/23/21 23:39> - Lab Results Fish Bones: 07/23/21 17:27 07/23/21 22:17 <Portia Mendez - Last Filed: 07/23/21 23:44>
[2021-07-23] MEDS ORDERED: POTASSIUM CHLORIDE 20 MEQ TABLET PO ONE (20:51)
[2021-07-23 21:10] LABS: ABG PH 7.29 (7.35-7.45); ABG PO2 66 mmHg (80-100)
[2021-07-23 21:11] LABS: ABG BASE EXCESS 26.4 mmol/L (-2.0-3.0); ABG HCO3 58.4 mmol/L (22.0-26.0); ABG OXYGEN SATURATION 91 % (94-98); ALLEN TEST POSITIVE
[2021-07-23 21:12] LABS: ABG RESPIRATORY RATE 10 b/min
[2021-07-23 21:14] LABS: ABG PCO2 124 mmHg (34-45)
[2021-07-23 21:15] LABS: ABG TCO2 62.2 MMOL/L (21.0-29.0)
[2021-07-23] MEDS: LOSARTAN 50 MG TABLET PO SCH (21:46)
--- NOTE | 2021-07-23 22:26 | XRAY Report ---
PROCEDURE: Chest 1 View X-Ray INDICATIONS: Chest Pain TECHNIQUE: One view of the chest was acquired. COMPARISON: Prior chest plain film 03/21/[address] pulmonary angiogram 02/04/2021 reviewed FINDINGS: Surgical changes and devices: None. Lungs and pleura: No pleural effusions or pneumothorax, but there is a generalized alveolar edema pa ttern that looks somewhat more prominent on the right than the left. Focal asymmetric pulmonary edema may explain this appearance but pneumonia also should be considered. Lungs are difficult to accurat laurel assess due to large body habitus and reduced inspiratory volume. Mediastinum: Mediastinal contours appear normal. Heart size is globally enlarged. Bones and chest wall: No suspicious bony lesions. Overlying soft tissues appear unremarkable. IMPRESSION: Bilateral pneumonia, right greater than left, may be present but given the cardiomegaly noted asymmet chao cardiogenic pulmonary edema also should be considered. Reviewed by: Jonh Okeefe MD on 07/23/2021 10:24 PM PDT Approved by: Jonh Okeefe MD on 07/23/2021 10:24 PM PDT Station ID: [id number]
[2021-07-23 22:34] LABS: CALCIUM 8.9 mg/dL (8.5-10.3); CREATININE 0.7 mg/dL (0.4-1.0); POTASSIUM 3.1 mmol/L (3.5-5.0)
[2021-07-23] MEDS ORDERED: POTASSIUM CHLORIDE INJ 40 MEQ in DEXTROSE 5%-0.45% NACL 980 ML IV SCH (23:45)
[2021-07-24] MEDS: SODIUM CHLORIDE FLUSH 0.9% 10 ML SYRINGE IVP SCH ×3 (00:53→21:03)
[2021-07-24] MEDS ORDERED: D5.45NS W/20 MEQ KCL 1,000 ML IV SCH (01:00)
[2021-07-24 04:30] LABS: BASOPHILS % (AUTO) 0.8 %; EOSINOPHILS % (AUTO) 0.5 %; HCT - HEMATOCRIT 31.3 % (37.0-47.0); HGB - HEMOGLOBIN 8.4 g/dL (12.0-16.0); LYMPHOCYTES # (AUTO) 0.5 10^3/uL (1.5-3.5); MEAN CORPUSCULAR HEMOGLOBIN 25.8 pg (27.0-31.0); MEAN CORPUSCULAR HGB CONC 26.8 g/dL (32.0-36.0); MEAN PLATELET VOLUME 9.6 fL (7.9-10.8); MONOCYTES # (AUTO) 0.5 10^3/uL (0.0-1.0); MONOCYTES % (AUTO) 11.3 %; NEUTROPHILS % (AUTO) 73.9 %; PLT - PLATELET COUNT 137 10^3/uL (130-450); RED BLOOD COUNT 3.26 10^6/uL (4.20-5.40); RED CELL DISTRIBUTION WIDTH 20.1 % (12.0-15.0)
[2021-07-24 04:36] LABS: SLIDE REVIEW? Indicated
[2021-07-24 04:38] LABS: CALCIUM 8.5 mg/dL (8.5-10.3); CREATININE 0.6 mg/dL (0.4-1.0); POTASSIUM 3.2 mmol/L (3.5-5.0)
[2021-07-24 04:45] LABS: PLATELET ESTIMATE, MANUAL NORMAL (130-450,000) (NORMAL); PLATELET MORPHOLOGY NORMAL APPEARANCE (NORMAL); WBC MORPHOLOGY (MULTIPLE) NORMAL APPEARANCE (NORMAL)
[2021-07-24 05:09] LABS: ABG HCO3 51.2 mmol/L (22.0-26.0); ABG PH 7.31 (7.35-7.45); ABG PO2 87 mmHg (80-100)
[2021-07-24 05:10] LABS: ABG BASE EXCESS 21.1 mmol/L (-2.0-3.0); ABG OXYGEN SATURATION 96 % (94-98); ALLEN TEST POSITIVE
[2021-07-24 05:11] LABS: ABG PCO2 103 mmHg (34-45); ABG RESPIRATORY RATE 14 b/min; ABG TCO2 54.4 MMOL/L (21.0-29.0)
[2021-07-24] MEDS: FUROSEMIDE 40 MG/4 ML VIAL IVP SCH ×2 (05:11→14:00)
--- NOTE | 2021-07-24 07:52 | PHARMACY PROGRESS NOTE ---
- Best Possible Medication History Admit Date and Time: 07/23/21 185 Processed by: Nursing Medication History completed: Yes Patient Interview: Completed Secondary Source(s): Pharmacy records, Insurance records As the person ultimately responsible for medication therapy, providers are able to order a medication from an existing home medication list in [facility] via the "Reconcile Routine" prior to Confirmation of that medication by phlebotomy support tech. Such practice is discouraged except when the physician, in their clinical judgment, deems that a medical need exists for a medication without regard to previous use.
[2021-07-24] MEDS ORDERED: POTASSIUM CHLORIDE 20 MEQ TABLET PO SCH (08:00)
[2021-07-24] MEDS: LOSARTAN 50 MG TABLET PO SCH (08:05)
[2021-07-24] MEDS: ENOXAPARIN 40 MG/0.4 ML SYRINGE SUBQ SCH (11:22)
[2021-07-24] MEDS ORDERED: POTASSIUM CHLORIDE 20 MEQ TABLET PO ONE (12:00)
--- NOTE | 2021-07-24 17:45 | PROVIDER PROGRESS NOTE ---
Subjective - Subjective Pt reports feeling: Improved (Is awake and communicative but poor historian, currently on O2 HiFlow) Objective - Vital Signs/Intake & Output Reviewed Vital Signs: Yes Vital Signs: Vital Signs Pulse Pulse Resp BP Pulse Ox 07/24/21 17:00 78 25 H 171/74 H 88 L 07/24/21 14:30 80 Intake & Output: Intake & Output 07/21/21 07/22/21 07/23/21 07/24/21 23:59 23:59 23:59 23:59 Intake Total 240 2260 Output Total 0 5450 Balance 240 -3190 - Objective General Appearance: positive: No acute distress, Alert Eyes Bilateral: positive: Normal inspection, EOMI ENT: positive: No signs of dehydration Neck: positive: Nml inspection, Other (Obese and cannot eval JVP) Respiratory: positive: No respiratory distress, Breath sounds nml Cardiovascular: positive: Regular rate & rhythm (Distant heart sounds due tpo large breasts) Abdomen: positive: Non-tender (Obese with pannus) Skin: positive: Warm, Dry Extremities: positive: Non-tender, Other (1+ pretibial edema to knees) Neurologic/Psychiatric: positive: Oriented x3 (Non-focal) - Lab Results Fish Bones: 07/24/21 04:10 07/24/21 04:10 Other Labs: Lab Results x24hrs 07/24/21 07/24/21 07/24/21 Range/Units 04:50 04:10 04:10 WBC 4.0 L (4.8-10.8) x10^3/uL RBC 3.26 L (4.20-5.40) 10^6/uL Hgb 8.4 L (12.0-16.0) g/dL Hct 31.3 L (37.0-47.0) % MCV 96.0 (81.0-99.0) fL MCH 25.8 L (27.0-31.0) pg MCHC 26.8 L (32.0-36.0) g/dL RDW 20.1 H (12.0-15.0) % Plt Count 137 (130-450) 10^3/uL MPV 9.6 (7.9-10.8) fL Neut # (Auto) 3.0 (1.5-6.6) 10^3/uL Lymph # (Auto) 0.5 L (1.5-3.5) 10^3/uL [place] # (Auto) 0.5 (0.0-1.0) 10^3/uL Eos # (Auto) 0.0 (0.0-0.7) 10^3/uL Baso # (Auto) 0.0 (0.0-0.1) 10^3/uL Absolute Nucleated RBC 0.00 x10^3/uL Nucleated RBC % 0.0 /100WBC Manual Slide Review Indicated WBC Morphology NORMAL APPEARANCE (NORMAL) Platelet Estimate NORMAL (130-450,000) (NORMAL) Platelet Morphology NORMAL APPEARANCE (NORMAL) RBC Morph Micro Appear 1+ HYPOCHROMASIA (NORMAL) Bld Gas Analysis Time 0506 Sample Site RIGHT RADIAL ABG pH 7.31 L (7.35-7.45) ABG pCO2 103 H* (34-45) mmHg ABG pO2 87 (80-100) mmHg ABG HCO3 51.2 H (22.0-26.0) mmol/L ABG Total CO2 54.4 H* (21.0-29.0) MMOL/L ABG O2 Saturation 96 (94-98) % ABG Base Excess 21.1 H (-2.0-3.0) mmol/L Juan Jose Test POSITIVE Respiration Rate 14 b/min O2 Delivery Device BiPAP FiO2 90.00 EPAP 4 cmH2O IPAP 12 cmH2O Sodium 145 (135-145) mmol/L Potassium 3.2 L (3.5-5.0) mmol/L Chloride 88 L (101-111) mmol/L Carbon Dioxide 48 H* (21-32) mmol/L Anion Gap 9.0 (6-13) BUN 7 (6-20) mg/dL Creatinine 0.6 (0.4-1.0) mg/dL Estimated GFR (MDRD) 104 (>89) Glucose 114 H (70-100) mg/dL Calcium 8.5 (8.5-10.3) mg/dL Total Bilirubin (0.2-1.0) mg/dL AST (10-42) IU/L ALT (10-60) IU/L Alkaline Phosphatase (42-121) IU/L Troponin I High Sens (2.3-14.8) ng/L B-Natriuretic Peptide (5-100) pg/mL Total Protein (6.7-8.2) g/dL Albumin (3.2-5.5) g/dL Globulin (2.1-4.2) g/dL Albumin/Globulin Ratio (1.0-2.2) Lipase (22-51) U/L Nasal Adenovirus (PCR) Nasal B. parapertussis DNA (PCR) Nasal Coronavir 229E PCR Nasal Coronavir HKU1 PCR Nasal Coronavir NL63 PCR Nasal Coronavir OC43 PCR Nasal Enterovir/Rhinovir PCR Nasal Influenza B PCR Nasal Influenza A PCR Nasal Parainfluen 1 PCR Nasal Parainfluen 2 PCR Nasal Parainfluen 3 PCR Nasal Parainfluen 4 PCR Nasal RSV (PCR) Nasal Screen MRSA (PCR) (NEGATIVE) Nasal B.pertussis DNA PCR Nasal C.pneumoniae (PCR) [place] Human Metapneumo PCR Nasal M.pneumoniae (PCR) Nasal SARS-CoV-2 (PCR) 07/23/21 07/23/21 07/23/21 Range/Units 22:17 20:49 20:05 WBC (4.8-10.8) x10^3/uL RBC (4.20-5.40) 10^6/uL Hgb (12.0-16.0) g/dL Hct (37.0-47.0) % MCV (81.0-99.0) fL MCH (27.0-31.0) pg MCHC (32.0-36.0) g/dL RDW (12.0-15.0) % Plt Count (130-450) 10^3/uL MPV (7.9-10.8) fL Neut # (Auto) (1.5-6.6) 10^3/uL Lymph # (Auto) (1.5-3.5) 10^3/uL [place] # (Auto) (0.0-1.0) 10^3/uL Eos # (Auto) (0.0-0.7) 10^3/uL Baso # (Auto) (0.0-0.1) 10^3/uL Absolute Nucleated RBC x10^3/uL Nucleated RBC % /100WBC Manual Slide Review WBC Morphology (NORMAL) Platelet Estimate (NORMAL) Platelet Morphology (NORMAL) RBC Morph Micro Appear (NORMAL) Bld Gas Analysis Time 2042 Sample Site RIGHT RADIAL ABG pH 7.29 L (7.35-7.45) ABG pCO2 124 H* (34-45) mmHg ABG pO2 66 L (80-100) mmHg ABG HCO3 58.4 H (22.0-26.0) mmol/L ABG Total CO2 62.2 H* (21.0-29.0) MMOL/L ABG O2 Saturation 91 L (94-98) % ABG Base Excess 26.4 H (-2.0-3.0) mmol/L Juan Jose Test POSITIVE Respiration Rate 10 b/min O2 Delivery Device BiPAP FiO2 70.00 EPAP 4 cmH2O IPAP 12 cmH2O Sodium 146 H (135-145) mmol/L Potassium 3.1 L (3.5-5.0) mmol/L Chloride 88 L (101-111) mmol/L Carbon Dioxide 49 H* (21-32) mmol/L Anion Gap 9.0 (6-13) BUN 9 (6-20) mg/dL Creatinine 0.7 (0.4-1.0) mg/dL Estimated GFR (MDRD) 87 L (>89) Glucose 122 H (70-100) mg/dL Calcium 8.9 (8.5-10.3) mg/dL Total Bilirubin (0.2-1.0) mg/dL AST (10-42) IU/L ALT (10-60) IU/L Alkaline Phosphatase (42-121) IU/L Troponin I High Sens (2.3-14.8) ng/L B-Natriuretic Peptide (5-100) pg/mL Total Protein (6.7-8.2) g/dL Albumin (3.2-5.5) g/dL Globulin (2.1-4.2) g/dL Albumin/Globulin Ratio (1.0-2.2) Lipase (22-51) U/L Nasal Adenovirus (PCR) Nasal B. parapertussis DNA (PCR) Nasal Coronavir 229E PCR Nasal Coronavir HKU1 PCR Nasal Coronavir NL63 PCR Nasal Coronavir OC43 PCR Nasal Enterovir/Rhinovir PCR Nasal Influenza B PCR Nasal Influenza A PCR Nasal Parainfluen 1 PCR Nasal Parainfluen 2 PCR Nasal Parainfluen 3 PCR Nasal Parainfluen 4 PCR Nasal RSV (PCR) Nasal Screen MRSA (PCR) NEGATIVE (NEGATIVE) Nasal B.pertussis DNA PCR Nasal C.pneumoniae (PCR) [place] Human Metapneumo PCR Nasal M.pneumoniae (PCR) Nasal SARS-CoV-2 (PCR) 07/23/21 07/23/21 07/23/21 Range/Units 17:36 17:27 17:27 WBC (4.8-10.8) x10^3/uL RBC (4.20-5.40) 10^6/uL Hgb (12.0-16.0) g/dL Hct (37.0-47.0) % MCV (81.0-99.0) fL MCH (27.0-31.0) pg MCHC (32.0-36.0) g/dL RDW (12.0-15.0) % Plt Count (130-450) 10^3/uL MPV (7.9-10.8) fL Neut # (Auto) (1.5-6.6) 10^3/uL Lymph # (Auto) (1.5-3.5) 10^3/uL [place] # (Auto) (0.0-1.0) 10^3/uL Eos # (Auto) (0.0-0.7) 10^3/uL Baso # (Auto) (0.0-0.1) 10^3/uL Absolute Nucleated RBC x10^3/uL Nucleated RBC % /100WBC Manual Slide Review WBC Morphology (NORMAL) Platelet Estimate (NORMAL) Platelet Morphology (NORMAL) RBC Morph Micro Appear (NORMAL) Bld Gas Analysis Time Sample Site ABG pH (7.35-7.45) ABG pCO2 (34-45) mmHg ABG pO2 (80-100) mmHg ABG HCO3 (22.0-26.0) mmol/L ABG Total CO2 (21.0-29.0) MMOL/L ABG O2 Saturation (94-98) % ABG Base Excess (-2.0-3.0) mmol/L Juan Jose Test Respiration Rate b/min O2 Delivery Device FiO2 EPAP cmH2O IPAP cmH2O Sodium (135-145) mmol/L Potassium (3.5-5.0) mmol/L Chloride (101-111) mmol/L Carbon Dioxide (21-32) mmol/L Anion Gap (6-13) BUN (6-20) mg/dL Creatinine (0.4-1.0) mg/dL Estimated GFR (MDRD) (>89) Glucose (70-100) mg/dL Calcium (8.5-10.3) mg/dL Total Bilirubin (0.2-1.0) mg/dL AST (10-42) IU/L ALT (10-60) IU/L Alkaline Phosphatase (42-121) IU/L Troponin I High Sens 17.4 H* (2.3-14.8) ng/L B-Natriuretic Peptide 950 H (5-100) pg/mL Total Protein (6.7-8.2) g/dL Albumin (3.2-5.5) g/dL Globulin (2.1-4.2) g/dL Albumin/Globulin Ratio (1.0-2.2) Lipase (22-51) U/L Nasal Adenovirus (PCR) NOT DETECTED Nasal B. parapertussis DNA (PCR) NOT DETECTED Nasal Coronavir 229E PCR NOT DETECTED Nasal Coronavir HKU1 PCR NOT DETECTED Nasal Coronavir NL63 PCR NOT DETECTED Nasal Coronavir OC43 PCR NOT DETECTED Nasal Enterovir/Rhinovir PCR NOT DETECTED Nasal Influenza B PCR NOT DETECTED Nasal Influenza A PCR NOT DETECTED Nasal Parainfluen 1 PCR NOT DETECTED Nasal Parainfluen 2 PCR NOT DETECTED Nasal Parainfluen 3 PCR NOT DETECTED Nasal Parainfluen 4 PCR NOT DETECTED Nasal RSV (PCR) NOT DETECTED Nasal Screen MRSA (PCR) (NEGATIVE) Nasal B.pertussis DNA PCR NOT DETECTED Nasal C.pneumoniae (PCR) NOT DETECTED [place] Human Metapneumo PCR NOT DETECTED Nasal M.pneumoniae (PCR) NOT DETECTED Nasal SARS-CoV-2 (PCR) NOT DETECTED 07/23/21 07/23/21 Range/Units 17:27 17:27 WBC 4.3 L (4.8-10.8) x10^3/uL RBC 3.59 L (4.20-5.40) 10^6/uL Hgb 9.4 L (12.0-16.0) g/dL Hct 34.2 L (37.0-47.0) % MCV 95.3 (81.0-99.0) fL MCH 26.2 L (27.0-31.0) pg MCHC 27.5 L (32.0-36.0) g/dL RDW 20.2 H (12.0-15.0) % Plt Count 160 (130-450) 10^3/uL MPV 9.8 (7.9-10.8) fL Neut # (Auto) 3.2 (1.5-6.6) 10^3/uL Lymph # (Auto) 0.5 L (1.5-3.5) 10^3/uL [place] # (Auto) 0.4 (0.0-1.0) 10^3/uL Eos # (Auto) 0.1 (0.0-0.7) 10^3/uL Baso # (Auto) 0.0 (0.0-0.1) 10^3/uL Absolute Nucleated RBC 0.00 x10^3/uL Nucleated RBC % 0.0 /100WBC Manual Slide Review Indicated WBC Morphology NORMAL APPEARANCE (NORMAL) Platelet Estimate NORMAL (130-450,000) (NORMAL) Platelet Morphology NORMAL APPEARANCE (NORMAL) RBC Morph Micro Appear 1+ POLYCHROMASIA (NORMAL) Bld Gas Analysis Time Sample Site ABG pH (7.35-7.45) ABG pCO2 (34-45) mmHg ABG pO2 (80-100) mmHg ABG HCO3 (22.0-26.0) mmol/L ABG Total CO2 (21.0-29.0) MMOL/L ABG O2 Saturation (94-98) % ABG Base Excess (-2.0-3.0) mmol/L Juan Jose Test Respiration Rate b/min O2 Delivery Device FiO2 EPAP cmH2O IPAP cmH2O Sodium 146 H (135-145) mmol/L Potassium 3.3 L (3.5-5.0) mmol/L Chloride 91 L (101-111) mmol/L Carbon Dioxide > 45 H* (21-32) mmol/L Anion Gap 9.0 (6-13) BUN 10 (6-20) mg/dL Creatinine 0.6 (0.4-1.0) mg/dL Estimated GFR (MDRD) 104 (>89) Glucose 128 H (70-100) mg/dL Calcium 9.0 (8.5-10.3) mg/dL Total Bilirubin 1.2 H (0.2-1.0) mg/dL AST 16 (10-42) IU/L ALT 10 (10-60) IU/L Alkaline Phosphatase 47 (42-121) IU/L Troponin I High Sens (2.3-14.8) ng/L B-Natriuretic Peptide (5-100) pg/mL Total Protein 6.9 (6.7-8.2) g/dL Albumin 3.6 (3.2-5.5) g/dL Globulin 3.3 (2.1-4.2) g/dL Albumin/Globulin Ratio 1.1 (1.0-2.2) Lipase 25 (22-51) U/L Nasal Adenovirus (PCR) Nasal B. parapertussis DNA (PCR) Nasal Coronavir 229E PCR Nasal Coronavir HKU1 PCR Nasal Coronavir NL63 PCR Nasal Coronavir OC43 PCR Nasal Enterovir/Rhinovir PCR Nasal Influenza B PCR Nasal Influenza A PCR Nasal Parainfluen 1 PCR Nasal Parainfluen 2 PCR Nasal Parainfluen 3 PCR Nasal Parainfluen 4 PCR Nasal RSV (PCR) Nasal Screen MRSA (PCR) (NEGATIVE) Nasal B.pertussis DNA PCR Nasal C.pneumoniae (PCR) [place] Human Metapneumo PCR Nasal M.pneumoniae (PCR) Nasal SARS-CoV-2 (PCR) Assessment/Plan - Problem List (1) Acute on chronic respiratory failure with hypoxia and hypercapnia Impression: Pt was in respiratory acidosis in the ED with an arterial pH of 7.25. PCO2 of 113. Patient is much more awake since being put on BiPAP. She is in the ICU. She is tolerating times off of BiPAP and on high flow oxygen per nasal cannula. She will look up with her repairer veneer sheet is today so that we may be able to contact him and obtain any advice regarding management while she is here as an inpatient. The importance for using her CPAP machine was reiterated to her by her ICU nurse and myself. She admits that "it is her own fault" she says the machine gets too hot and she is claustrophobic on it. Will adjust BIPAP settings and suppl oxygen amt as needed. Remain in ICU, since pt cannot adjust her own BIPAP, since she is not used to using it at home. (2) Obstructive sleep apnea Conclusion/Plan: Pt was diagnosed with PILAR in 2016. CPAP since January 2021 ordered but sghe has had variable compliance. The importance for using her CPAP machine was reiterated to her by her ICU nurse and myself today. She admits that "it is her own fault" she says the machine gets too hot and she is claustrophobic on it. (3) Acute on chronic right-sided congestive heart failure Conclusion/Plan: Pt's BNP was 950 in the ED. Will stop the D50.45 NS that was started, dure to edema Continue giving IV lasix today. Will change to po tomorrow Follow BMP, BNP and Mg daily ICU monitor of I/Os (4) Hypokalemia Conclusion/Plan: Pt's serum potassium was low at 3.2 today and further replacement needed (5) Hypernatremia Conclusion/Plan: Pt was hypernatremic since admission Will change her Reg diet to a low salt diet Will stop the D50.45 NS that was started, due to edema Follow BMP and I's and O's daily (6) Morbid obesity BMI 50-59 Conclusion/Plan: She reported having lost 80 lbs over 1 year. Further weight reduction needed. (7) Decreased white blood cell count, unspecified Conclusion/Plan: Over the past two years, pt has had a consistent decrease in WBCs, Hgb, and platelets. Will trend WBC results and follow outpatient
[2021-07-24] MEDS ORDERED: NYSTATIN POWDER 15 GM TOP PRN (17:55)
[2021-07-24] MEDS: ACETAMINOPHEN 325 MG TABLET PO PRN (19:42)
[2021-07-24] MEDS: hydrALAZINE 25 MG TABLET PO SCH (20:59)
[2021-07-24] MEDS: carvediloL 12.5 MG TABLET PO SCH (20:59)
[2021-07-24] MEDS: OMEGA-3 ACID ETHYL ESTERS 1 GM CAPSULE PO SCH (20:59)
[2021-07-24] MEDS: POTASSIUM CHLORIDE 20 MEQ TABLET PO SCH (20:59)
[2021-07-25] MEDS: SODIUM CHLORIDE FLUSH 0.9% 10 ML SYRINGE IVP SCH ×4 (00:30→21:24)
[2021-07-25 05:04] LABS: CALCIUM, IONIZED 1.02 mmol/L (1.15-1.33); VBG PH 7.451 (7.31-7.41)
[2021-07-25 05:06] LABS: BASOPHILS % (AUTO) 0.7 %; EOSINOPHILS # (AUTO) 0.1 10^3/uL (0.0-0.7); EOSINOPHILS % (AUTO) 1.9 %; HCT - HEMATOCRIT 30.8 % (37.0-47.0); HGB - HEMOGLOBIN 8.5 g/dL (12.0-16.0); LYMPHOCYTES # (AUTO) 0.7 10^3/uL (1.5-3.5); LYMPHOCYTES % (AUTO) 17.1 %; MEAN CORPUSCULAR HEMOGLOBIN 25.5 pg (27.0-31.0); MEAN CORPUSCULAR HGB CONC 27.6 g/dL (32.0-36.0); MEAN CORPUSCULAR VOLUME 92.5 fL (81.0-99.0); MEAN PLATELET VOLUME 9.7 fL (7.9-10.8); MONOCYTES # (AUTO) 0.5 10^3/uL (0.0-1.0); MONOCYTES % (AUTO) 12.7 %; NEUTROPHILS # (AUTO) 2.9 10^3/uL (1.5-6.6); NEUTROPHILS % (AUTO) 67.1 %; PLT - PLATELET COUNT 152 10^3/uL (130-450); RED BLOOD COUNT 3.33 10^6/uL (4.20-5.40); RED CELL DISTRIBUTION WIDTH 19.9 % (12.0-15.0); WHITE BLOOD COUNT 4.3 x10^3/uL (4.8-10.8)
[2021-07-25 05:10] LABS: SLIDE REVIEW? Indicated
[2021-07-25 05:20] LABS: CALCIUM 8.4 mg/dL (8.5-10.3); CREATININE 0.6 mg/dL (0.4-1.0); MAGNESIUM 1.7 mg/dL (1.7-2.8); PHOSPHORUS 2.7 mg/dL (2.5-4.6); POTASSIUM 2.7 mmol/L (3.5-5.0)
[2021-07-25 05:26] LABS: PLATELET ESTIMATE, MANUAL NORMAL (130-450,000) (NORMAL); PLATELET MORPHOLOGY NORMAL APPEARANCE (NORMAL); WBC MORPHOLOGY (MULTIPLE) NORMAL APPEARANCE (NORMAL)
[2021-07-25] MEDS ORDERED: MAGNESIUM OXIDE 400 MG TABLET PO ONE (05:27)
[2021-07-25] MEDS: POTASSIUM CHLOR 10 MEQ/100 ML 10 MEQ/100 ML BAG IV SCH ×6 (06:03→12:06)
[2021-07-25] MEDS: hydrALAZINE 25 MG TABLET PO SCH ×3 (06:04→21:20)
[2021-07-25] MEDS: CALCIUM CARBONATE CHEW 500 MG TABLET PO SCH ×2 (06:04→09:41)
[2021-07-25 07:11] LABS: ABG BASE EXCESS 26.4 mmol/L (-2.0-3.0); ABG HCO3 55.8 mmol/L (22.0-26.0); ABG OXYGEN SATURATION 93 % (94-98); ABG PH 7.39 (7.35-7.45); ABG PO2 68 mmHg (80-100)
[2021-07-25 07:14] LABS: ABG PCO2 95 mmHg (34-45); ABG TCO2 58.7 MMOL/L (21.0-29.0); ALLEN TEST POSITIVE
[2021-07-25] MEDS: POTASSIUM CHLORIDE 10 MEQ CAPSULE PO SCH (08:40)
[2021-07-25] MEDS: ENOXAPARIN 40 MG/0.4 ML SYRINGE SUBQ SCH ×2 (08:41→21:16)
[2021-07-25] MEDS: CHOLECALCIFEROL 25 MCG TABLET PO SCH (08:41)
[2021-07-25] MEDS: LOSARTAN 50 MG TABLET PO SCH (08:41)
[2021-07-25] MEDS: POTASSIUM CHLORIDE 20 MEQ TABLET PO SCH ×5 (08:42→21:20)
[2021-07-25] MEDS: OMEGA-3 ACID ETHYL ESTERS 1 GM CAPSULE PO SCH ×2 (08:42→21:15)
[2021-07-25] MEDS: FUROSEMIDE 40 MG TABLET PO SCH (08:42)
[2021-07-25] MEDS: carvediloL 12.5 MG TABLET PO SCH ×2 (08:44→21:16)
[2021-07-25 14:09] LABS: CALCIUM, IONIZED 1.11 mmol/L (1.15-1.33); VBG PH 7.415 (7.31-7.41)
[2021-07-25 14:11] LABS: MAGNESIUM 1.9 mg/dL (1.7-2.8); POTASSIUM 3.1 mmol/L (3.5-5.0)
[2021-07-25 14:47] LABS: ABG PH 7.48 (7.35-7.45)
[2021-07-25 14:48] LABS: ABG BASE EXCESS 27.4 mmol/L (-2.0-3.0); ABG HCO3 54.9 mmol/L (22.0-26.0)
[2021-07-25 14:50] LABS: ABG OXYGEN SATURATION 85 % (94-98); ABG PCO2 75 mmHg (34-45); ABG PO2 47 mmHg (80-100); ABG TCO2 57.2 MMOL/L (21.0-29.0); ALLEN TEST POSITIVE
--- NOTE | 2021-07-25 17:18 | PROVIDER PROGRESS NOTE ---
Subjective - Subjective Pt reports feeling: Improved Objective - Vital Signs/Intake & Output Reviewed Vital Signs: Yes Vital Signs: Vital Signs Temp Pulse Resp BP Pulse Ox 07/25/21 17:00 36.6 C 79 26 H 173/77 H 88 L Intake & Output: Intake & Output 07/22/21 07/23/21 07/24/21 07/25/21 23:59 23:59 23:59 23:59 Intake Total 240 2620 2300 Output Total 0 5700 1400 Balance 240 -3080 900 - Objective General Appearance: positive: No acute distress, Alert, Other (Alopecia) Eyes Bilateral: positive: Normal inspection ENT: positive: No signs of dehydration, Other (wearing O2 by n.c. currently) Neck: positive: Other (Obese and cannot eval JVP) Cardiovascular: positive: Regular rate & rhythm Abdomen: positive: Non-tender, Other (Obese with pannus) Skin: positive: Warm, Dry Extremities: positive: Non-tender, Other (Trace pretibial edema) Neurologic/Psychiatric: positive: Oriented x3 (Non-focal) - Lab Results Fish Bones: 07/25/21 04:10 07/25/21 13:54 Other Labs: Lab Results x24hrs 07/25/21 07/25/21 07/25/21 Range/Units 14:40 13:54 13:54 WBC (4.8-10.8) x10^3/uL RBC (4.20-5.40) 10^6/uL Hgb (12.0-16.0) g/dL Hct (37.0-47.0) % MCV (81.0-99.0) fL MCH (27.0-31.0) pg MCHC (32.0-36.0) g/dL RDW (12.0-15.0) % Plt Count (130-450) 10^3/uL MPV (7.9-10.8) fL Neut # (Auto) (1.5-6.6) 10^3/uL Lymph # (Auto) (1.5-3.5) 10^3/uL [place] # (Auto) (0.0-1.0) 10^3/uL Eos # (Auto) (0.0-0.7) 10^3/uL Baso # (Auto) (0.0-0.1) 10^3/uL Absolute Nucleated RBC x10^3/uL Nucleated RBC % /100WBC Manual Slide Review WBC Morphology (NORMAL) Platelet Estimate (NORMAL) Platelet Morphology (NORMAL) RBC Morph Micro Appear (NORMAL) Bld Gas Analysis Time 1440 Sample Site LEFT RADIAL ABG pH 7.48 H (7.35-7.45) ABG pCO2 75 H* (34-45) mmHg ABG pO2 47 L* (80-100) mmHg ABG HCO3 54.9 H (22.0-26.0) mmol/L ABG Total CO2 57.2 H* (21.0-29.0) MMOL/L ABG O2 Saturation 85 L* (94-98) % ABG Base Excess 27.4 H (-2.0-3.0) mmol/L Juan Jose Test POSITIVE VBG pH 7.415 H (7.31-7.41) Ionized Calcium 1.11 L (1.15-1.33) mmol/L O2 Delivery Device NASAL CANNULA O2 Liters/Min 5.00 LPM FiO2 EPAP cmH2O IPAP cmH2O Sodium (135-145) mmol/L Potassium 3.1 L (3.5-5.0) mmol/L Chloride (101-111) mmol/L Carbon Dioxide (21-32) mmol/L Anion Gap (6-13) BUN (6-20) mg/dL Creatinine (0.4-1.0) mg/dL Estimated GFR (MDRD) (>89) Glucose (70-100) mg/dL Calcium (8.5-10.3) mg/dL Phosphorus (2.5-4.6) mg/dL Magnesium 1.9 (1.7-2.8) mg/dL B-Natriuretic Peptide (5-100) pg/mL 07/25/21 07/25/21 07/25/21 Range/Units 06:52 04:10 04:10 WBC (4.8-10.8) x10^3/uL RBC (4.20-5.40) 10^6/uL Hgb (12.0-16.0) g/dL Hct (37.0-47.0) % MCV (81.0-99.0) fL MCH (27.0-31.0) pg MCHC (32.0-36.0) g/dL RDW (12.0-15.0) % Plt Count (130-450) 10^3/uL MPV (7.9-10.8) fL Neut # (Auto) (1.5-6.6) 10^3/uL Lymph # (Auto) (1.5-3.5) 10^3/uL [place] # (Auto) (0.0-1.0) 10^3/uL Eos # (Auto) (0.0-0.7) 10^3/uL Baso # (Auto) (0.0-0.1) 10^3/uL Absolute Nucleated RBC x10^3/uL Nucleated RBC % /100WBC Manual Slide Review WBC Morphology (NORMAL) Platelet Estimate (NORMAL) Platelet Morphology (NORMAL) RBC Morph Micro Appear (NORMAL) Bld Gas Analysis Time 0652 Sample Site RIGHT RADIAL ABG pH 7.39 (7.35-7.45) ABG pCO2 95 H* (34-45) mmHg ABG pO2 68 L (80-100) mmHg ABG HCO3 55.8 H (22.0-26.0) mmol/L ABG Total CO2 58.7 H* (21.0-29.0) MMOL/L ABG O2 Saturation 93 L (94-98) % ABG Base Excess 26.4 H (-2.0-3.0) mmol/L Juan Jose Test POSITIVE VBG pH 7.451 H (7.31-7.41) Ionized Calcium 1.02 L (1.15-1.33) mmol/L O2 Delivery Device BiPAP O2 Liters/Min LPM FiO2 70.00 EPAP 4 cmH2O IPAP 12 cmH2O Sodium (135-145) mmol/L Potassium (3.5-5.0) mmol/L Chloride (101-111) mmol/L Carbon Dioxide (21-32) mmol/L Anion Gap (6-13) BUN (6-20) mg/dL Creatinine (0.4-1.0) mg/dL Estimated GFR (MDRD) (>89) Glucose (70-100) mg/dL Calcium (8.5-10.3) mg/dL Phosphorus (2.5-4.6) mg/dL Magnesium (1.7-2.8) mg/dL B-Natriuretic Peptide 630 H (5-100) pg/mL 07/25/21 07/25/21 Range/Units 04:10 04:10 WBC 4.3 L (4.8-10.8) x10^3/uL RBC 3.33 L (4.20-5.40) 10^6/uL Hgb 8.5 L (12.0-16.0) g/dL Hct 30.8 L (37.0-47.0) % MCV 92.5 (81.0-99.0) fL MCH 25.5 L (27.0-31.0) pg MCHC 27.6 L (32.0-36.0) g/dL RDW 19.9 H (12.0-15.0) % Plt Count 152 (130-450) 10^3/uL MPV 9.7 (7.9-10.8) fL Neut # (Auto) 2.9 (1.5-6.6) 10^3/uL Lymph # (Auto) 0.7 L (1.5-3.5) 10^3/uL [place] # (Auto) 0.5 (0.0-1.0) 10^3/uL Eos # (Auto) 0.1 (0.0-0.7) 10^3/uL Baso # (Auto) 0.0 (0.0-0.1) 10^3/uL Absolute Nucleated RBC 0.00 x10^3/uL Nucleated RBC % 0.0 /100WBC Manual Slide Review Indicated WBC Morphology NORMAL APPEARANCE (NORMAL) Platelet Estimate NORMAL (130-450,000) (NORMAL) Platelet Morphology NORMAL APPEARANCE (NORMAL) RBC Morph Micro Appear 1+ ANISOCYTOSIS (NORMAL) Bld Gas Analysis Time Sample Site ABG pH (7.35-7.45) ABG pCO2 (34-45) mmHg ABG pO2 (80-100) mmHg ABG HCO3 (22.0-26.0) mmol/L ABG Total CO2 (21.0-29.0) MMOL/L ABG O2 Saturation (94-98) % ABG Base Excess (-2.0-3.0) mmol/L Juan Jose Test VBG pH (7.31-7.41) Ionized Calcium (1.15-1.33) mmol/L O2 Delivery Device O2 Liters/Min LPM FiO2 EPAP cmH2O IPAP cmH2O Sodium 145 (135-145) mmol/L Potassium 2.7 L (3.5-5.0) mmol/L Chloride 84 L (101-111) mmol/L Carbon Dioxide 50 H* (21-32) mmol/L Anion Gap 11.0 (6-13) BUN 8 (6-20) mg/dL Creatinine 0.6 (0.4-1.0) mg/dL Estimated GFR (MDRD) 104 (>89) Glucose 92 (70-100) mg/dL Calcium 8.4 L (8.5-10.3) mg/dL Phosphorus 2.7 (2.5-4.6) mg/dL Magnesium 1.7 (1.7-2.8) mg/dL B-Natriuretic Peptide (5-100) pg/mL Assessment/Plan - Problem List (1) Acute on chronic respiratory failure with hypoxia and hypercapnia Impression: Pt was in respiratory acidosis in the ED with an arterial pH of 7.25. PCO2 of 113. Patient is much more awake for 2 days, ever since being put on BiPAP. She is in the ICU. She is tolerating times off of BiPAP and on high flow oxygen per nasal cannula>> nasal cannula today from 8 down to 5L. Yesterday the importance for using her CPAP machine was reiterated to her by her ICU nurse and myself. She admits that "it is her own fault" she says the "machine gets too hot" and she is "claustrophobic on it". Today, when RT and I were both in her room at the same time, I asked her how she switches from nasal cannula oxygen at home at 5 L to her nasal pillows CPAP machine. She just changes the tubing and confirmed that she does not plug in any oxygen at night while on CPAP. Her daughter was asked to bring in the CPAP machine. The respiratory therapist will give her a device that allows the tubing of oxygen to be plugged into the CPAP machine and she will use her own CPAP device with oxygen bled in and remain tonight in the ICU. Perhaps she was getting air hunger by switching to CPAP with only an FiO2 of 21% of room air which caused her to get air hunger and then panic, and not actually be claustrophobic, Remain in ICU, since pt cannot adjust her own CPAP with O2, since she is not used to using this combination at home. (2) Obstructive sleep apnea Conclusion/Plan: Pt was diagnosed with PILAR in 2016. CPAP was ordered since January 2021 but she has had variable compliance. I asked her how she switches from daytime nasal cannula oxygen at home set at 5 L/min to her nasal pillows CPAP machine. She said she just changes the tubing and confirmed that she does not plug in any oxygen at night while on CPAP. Her daughter was asked to bring in the CPAP machine. The respiratory therapist will give her a device that allows the tubing of oxygen to be plugged into the CPAP machine and she will use her own CPAP device with oxygen bled in and remain in the ICU tonight. She was probably experiencing air hunger by switching to CPAP with only an FiO2 of 21% of room air, which caused her to then panic, and not actually be claustrophobic. (3) Acute on chronic right-sided congestive heart failure Conclusion/Plan: Pt's BNP was 950 in the ED. We stopped the D50.45 NS that was started, due to edema We stopped IV lasix and now she is on po Lasix. Follow BMP, BNP and Mg daily ICU monitor of I/Os (4) Hypokalemia Conclusion/Plan: Pt's serum potassium was very low at 2.8 today and further replacement needed (5) Hypernatremia Conclusion/Plan: Pt was hypernatremic since admission We changed her Reg diet to a low salt diet and stopped iv fluids Follow BMP and I's and O's daily (6) Morbid obesity BMI 50-59 Conclusion/Plan: She reported having lost 80 lbs over 1 year. Further weight reduction needed. (7) Decreased white blood cell count, unspecified Conclusion/Plan: Over the past two years, pt has had a consistent decrease in WBCs, Hgb, and platelets. Will trend WBC results and follow outpatient
[2021-07-26] MEDS: POTASSIUM CHLORIDE 20 MEQ TABLET PO SCH ×7 (00:44→20:50)
[2021-07-26 05:07] LABS: CALCIUM, IONIZED 1.1 mmol/L (1.15-1.33); VBG PH 7.409 (7.31-7.41)
[2021-07-26 05:29] LABS: MAGNESIUM 1.9 mg/dL (1.7-2.8); PHOSPHORUS 2.6 mg/dL (2.5-4.6)
[2021-07-26] MEDS: hydrALAZINE 25 MG TABLET PO SCH ×3 (05:52→21:47)
[2021-07-26] MEDS: carvediloL 12.5 MG TABLET PO SCH ×2 (09:25→20:50)
[2021-07-26] MEDS: LOSARTAN 50 MG TABLET PO SCH (09:27)
[2021-07-26] MEDS: FUROSEMIDE 40 MG TABLET PO SCH (09:28)
[2021-07-26] MEDS: CHOLECALCIFEROL 25 MCG TABLET PO SCH (09:29)
[2021-07-26] MEDS: OMEGA-3 ACID ETHYL ESTERS 1 GM CAPSULE PO SCH ×2 (09:30→20:50)
[2021-07-26] MEDS: ENOXAPARIN 40 MG/0.4 ML SYRINGE SUBQ SCH ×2 (09:32→20:49)
[2021-07-26] MEDS: POTASSIUM CHLORIDE 10 MEQ CAPSULE PO SCH (12:10)
[2021-07-26] MEDS: CALCIUM CARBONATE CHEW 500 MG TABLET PO SCH ×2 (12:22→16:49)
--- NOTE | 2021-07-26 13:47 | PROVIDER PROGRESS NOTE ---
Subjective - Prog Note Date Prog Note Date: 07/26/21 - Subjective Pt reports feeling: Improved Objective - Vital Signs/Intake & Output Reviewed Vital Signs: Yes Vital Signs: Vital Signs Temp Pulse Resp BP Pulse Ox 07/26/21 12:55 62 20 128/62 93 07/26/21 11:13 36.7 C 59 L 19 130/66 89 L Intake & Output: Intake & Output 07/23/21 07/24/21 07/25/21 07/26/21 23:59 23:59 23:59 23:59 Intake Total 240 2620 2750 865 Output Total 0 5700 1875 750 Balance 240 -3080 875 115 - Objective General Appearance: positive: No acute distress, Other (Alopecia) Eyes Bilateral: positive: Normal inspection ENT: positive: ENT inspection nml Neck: positive: Other (Obese and cannot eval JVP) Respiratory: positive: Chest non-tender, No respiratory distress, Breath sounds nml Cardiovascular: positive: Regular rate & rhythm, No murmur (distant heart sounds due to large breasts) Abdomen: positive: Non-tender, Other (Obese with a pannus) Skin: positive: Warm, Dry Extremities: positive: Non-tender, No pedal edema Neurologic/Psychiatric: positive: Oriented x3 (Non-focal) - Lab Results Fish Bones: 07/25/21 04:10 07/26/21 13:00 Other Labs: Lab Results x24hrs 07/26/21 07/26/21 07/26/21 Range/Units 13:00 04:16 04:16 Bld Gas Analysis Time Sample Site ABG pH (7.35-7.45) ABG pCO2 (34-45) mmHg ABG pO2 (80-100) mmHg ABG HCO3 (22.0-26.0) mmol/L ABG Total CO2 (21.0-29.0) MMOL/L ABG O2 Saturation (94-98) % ABG Base Excess (-2.0-3.0) mmol/L Juan Jose Test VBG pH 7.409 (7.31-7.41) Ionized Calcium 1.10 L (1.15-1.33) mmol/L O2 Delivery Device O2 Liters/Min LPM Potassium 3.5 3.5 (3.5-5.0) mmol/L Phosphorus (2.5-4.6) mg/dL Magnesium (1.7-2.8) mg/dL Iron (28-170) ug/dL TIBC (250-450) ug/dL % Saturation (20-50) % Transferrin (192-382) mg/dL 07/26/21 07/25/21 07/25/21 Range/Units 04:16 19:22 14:40 Bld Gas Analysis Time 1440 Sample Site LEFT RADIAL ABG pH 7.48 H (7.35-7.45) ABG pCO2 75 H* (34-45) mmHg ABG pO2 47 L* (80-100) mmHg ABG HCO3 54.9 H (22.0-26.0) mmol/L ABG Total CO2 57.2 H* (21.0-29.0) MMOL/L ABG O2 Saturation 85 L* (94-98) % ABG Base Excess 27.4 H (-2.0-3.0) mmol/L Juan Jose Test POSITIVE VBG pH (7.31-7.41) Ionized Calcium (1.15-1.33) mmol/L O2 Delivery Device NASAL CANNULA O2 Liters/Min 5.00 LPM Potassium 3.1 L (3.5-5.0) mmol/L Phosphorus 2.6 (2.5-4.6) mg/dL Magnesium 1.9 (1.7-2.8) mg/dL Iron 30 (28-170) ug/dL TIBC 333 (250-450) ug/dL % Saturation 9 L (20-50) % Transferrin 238 (192-382) mg/dL 07/25/21 07/25/21 Range/Units 13:54 13:54 Bld Gas Analysis Time Sample Site ABG pH (7.35-7.45) ABG pCO2 (34-45) mmHg ABG pO2 (80-100) mmHg ABG HCO3 (22.0-26.0) mmol/L ABG Total CO2 (21.0-29.0) MMOL/L ABG O2 Saturation (94-98) % ABG Base Excess (-2.0-3.0) mmol/L Juan Jose Test VBG pH 7.415 H (7.31-7.41) Ionized Calcium 1.11 L (1.15-1.33) mmol/L O2 Delivery Device O2 Liters/Min LPM Potassium 3.1 L (3.5-5.0) mmol/L Phosphorus (2.5-4.6) mg/dL Magnesium 1.9 (1.7-2.8) mg/dL Iron (28-170) ug/dL TIBC (250-450) ug/dL % Saturation (20-50) % Transferrin (192-382) mg/dL Assessment/Plan - Problem List (1) Acute on chronic respiratory failure with hypoxia and hypercapnia Impression: Pt was in respiratory acidosis with CO2 narcosis at presentation, admitted to the ICU on BIPAP where she awoke. Yesterday RT and I heard how she switches from nasal cannula oxygen at home at 5 L/min daytime to her nasal pillows with CPAP machine: She just changes the tubing and confirmed that she does not plug in any oxygen at night while on CPAP. She was likely non-compliant with CPAP use at home (by her admission) because she was getting air hunger by switching to CPAP with only an FiO2 of 21% of room air which caused her to get air hunger and then panic, and she may not actually be claustrophobic. Her daughter brought her home CPAP machine and nasal pillows yesterday afternoon, these were connected to suppl O2 overnight. She kept desaturating and 5L/min was not an adequate setting. She needed to be on 15 L/min to maintain sats > 88%. Tonight we will use her home CPAP mask, plus supplemental O2, with her CPAP machine, and she remain tonight in the ICU. Also, today she started walking in her room, wearing 5L/min O2 per n.c., and she desaturated to 70%. (2) Obstructive sleep apnea Conclusion/Plan: Pt was diagnosed with PILAR in 2016. CPAP was ordered since January 2021 but she has had variable compliance. Her labs show chronic CO2 retention. Details and plan are as above in #1 (3) Acute on chronic right-sided congestive heart failure Conclusion/Plan: Pt's BNP was 950 in the ED. We stopped the D50.45 NS that was started, due to her having edema. We stopped IV lasix after 2 days and now she is on po Lasix. Will decrease the Lasix dose from 40 to 20 as she is now euvolemic clinically. Follow BMP and Mg daily ICU monitoring of I/Os (4) Hypokalemia Conclusion/Plan: Pt's serum potassium was very low today due to loop diuretic use, and further replacement needed (5) Hypernatremia Conclusion/Plan: Pt was hypernatremic since admission We changed her Reg diet to a low salt diet and stopped iv fluids Follow BMP and I's and O's daily (6) Morbid obesity BMI 50-59 Conclusion/Plan: She reported having lost 80 lbs over 1 year. Further weight reduction needed. (7) Decreased white blood cell count, unspecified Conclusion/Plan: Over the past two years, pt has had a consistent decrease in WBCs, Hgb, and platelets. Will trend WBC results and follow outpatient
[2021-07-26] MEDS: SODIUM CHLORIDE FLUSH 0.9% 10 ML SYRINGE IVP SCH ×3 (16:51→20:51)
[2021-07-26 23:11] LABS: CALCIUM, IONIZED 1.13 mmol/L (1.15-1.33); VBG PH 7.475 (7.31-7.41)
[2021-07-26] MEDS ORDERED: POTASSIUM CHLORIDE 20 MEQ TABLET PO ONE (23:26)
[2021-07-27 04:30] LABS: CALCIUM, IONIZED 1.13 mmol/L (1.15-1.33); VBG PH 7.454 (7.31-7.41)
[2021-07-27 04:44] LABS: CALCIUM 9.2 mg/dL (8.5-10.3); CREATININE 0.8 mg/dL (0.4-1.0); PHOSPHORUS 2.3 mg/dL (2.5-4.6); POTASSIUM 3.7 mmol/L (3.5-5.0)
[2021-07-27] MEDS: NEUTRA-PHOS 250 MG TABLET PO SCH ×2 (05:00→08:00)
[2021-07-27] MEDS ORDERED: POTASSIUM CHLORIDE 20 MEQ TABLET PO ONE (05:00)
[2021-07-27] MEDS: hydrALAZINE 25 MG TABLET PO SCH ×3 (05:32→22:09)
[2021-07-27] MEDS: LOSARTAN 50 MG TABLET PO SCH (08:20)
[2021-07-27] MEDS: carvediloL 12.5 MG TABLET PO SCH ×2 (08:20→20:31)
[2021-07-27] MEDS: POTASSIUM CHLORIDE 20 MEQ TABLET PO SCH ×2 (08:20→20:31)
[2021-07-27] MEDS: CHOLECALCIFEROL 25 MCG TABLET PO SCH (08:20)
[2021-07-27] MEDS: FUROSEMIDE 20 MG TABLET PO SCH (08:20)
[2021-07-27] MEDS: OMEGA-3 ACID ETHYL ESTERS 1 GM CAPSULE PO SCH ×2 (08:20→20:31)
[2021-07-27] MEDS: SODIUM CHLORIDE FLUSH 0.9% 10 ML SYRINGE IVP SCH ×2 (08:30→16:37)
[2021-07-27] MEDS: ENOXAPARIN 40 MG/0.4 ML SYRINGE SUBQ SCH ×2 (08:30→20:32)
--- NOTE | 2021-07-27 11:50 | PROVIDER PROGRESS NOTE ---
Subjective - Prog Note Date Prog Note Date: 07/27/21 - Subjective Pt reports feeling: No change (She still desaturated overnight on mask plus O2 bled into her own CPAP machine) Objective - Vital Signs/Intake & Output Reviewed Vital Signs: Yes Vital Signs: Vital Signs Temp Pulse Resp BP Pulse Ox 07/27/21 08:46 37.0 C 68 19 146/70 H 97 Intake & Output: Intake & Output 07/24/21 07/25/21 07/26/21 07/27/21 23:59 23:59 23:59 23:59 Intake Total 2620 2750 1730 1540 Output Total 5700 1875 1790 250 Balance -3080 875 -60 1290 - Objective General Appearance: positive: No acute distress, Alert Eyes Bilateral: positive: Normal inspection ENT: positive: No signs of dehydration Neck: positive: Other (Obese and cannot evaluate JVP) Respiratory: positive: No respiratory distress (wearing O2 per n.c.), Breath sounds nml Cardiovascular: positive: No murmur (distant heart sounds due to large breasts) Abdomen: positive: Other (Obese with pannus) Skin: positive: Color nml, Warm, Dry Extremities: positive: Non-tender, No pedal edema Neurologic/Psychiatric: positive: Oriented x3 (Non-focal) - Lab Results Fish Bones: 07/25/21 04:10 07/27/21 04:23 Other Labs: Lab Results x24hrs 07/27/21 07/27/21 07/26/21 Range/Units 04:23 04:23 22:54 VBG pH 7.454 H 7.475 H (7.31-7.41) Ionized Calcium 1.13 L 1.13 L (1.15-1.33) mmol/L Sodium 141 (135-145) mmol/L Potassium 3.7 (3.5-5.0) mmol/L Chloride 86 L (101-111) mmol/L Carbon Dioxide 45 H* (21-32) mmol/L Anion Gap 10.0 (6-13) BUN 10 (6-20) mg/dL Creatinine 0.8 (0.4-1.0) mg/dL Estimated GFR (MDRD) 75 L (>89) Glucose 93 (70-100) mg/dL Calcium 9.2 (8.5-10.3) mg/dL Phosphorus 2.3 L (2.5-4.6) mg/dL Magnesium 2.0 (1.7-2.8) mg/dL 07/26/21 07/26/21 Range/Units 22:54 13:00 VBG pH (7.31-7.41) Ionized Calcium (1.15-1.33) mmol/L Sodium (135-145) mmol/L Potassium 3.7 3.5 (3.5-5.0) mmol/L Chloride (101-111) mmol/L Carbon Dioxide (21-32) mmol/L Anion Gap (6-13) BUN (6-20) mg/dL Creatinine (0.4-1.0) mg/dL Estimated GFR (MDRD) (>89) Glucose (70-100) mg/dL Calcium (8.5-10.3) mg/dL Phosphorus (2.5-4.6) mg/dL Magnesium (1.7-2.8) mg/dL Assessment/Plan - Problem List (1) Acute on chronic respiratory failure with hypoxia and hypercapnia Impression: Pt was in respiratory acidosis with CO2 narcosis at presentation, admitted to the ICU on BIPAP where she awoke. 2 days ago RT and I heard how she switches from nasal cannula oxygen at home at 5 L/min daytime to her nasal pillows with CPAP machine: She just changes the tubing and confirmed that she does not plug in any oxygen at night while on CPAP at home. She was likely non-compliant with CPAP use at home (by her own admiss ion) because she was getting air hunger and panicky by switching to CPAP with only an FiO2 of 21% (room air). Her daughter brought her home CPAP machine and the first night first her nasal pillows, then the naxt night (last night) her mask was connected to suppl O2 overnight. She kept desaturating despite high FIO2 at 15L/min on both the nasal pillows and on the mask. She qualifies for a Home Ventilator machine, which will be ordered. Also, today she will be ordered to walk twice daily in her room, wearing her O2 per n.c., and if she desaturates below 88%, then we will document the necessary FIO2 increase. (2) Obstructive sleep apnea Conclusion/Plan: Pt was diagnosed with PILAR in 2016. CPAP was ordered since January 2021 but she has had variable compliance. Her labs show chronic CO2 retention. Home CPAP and BiPAP are deemed ineffective, due to severity of her medical conditions to easily cause her hypercapnic situation. I am ordering a noninvasi ve home ventilator for treatment, which may reduce hospital readmissions, prevent further complications and help the patient's recovery from her severe medical conditions. (3) Acute on chronic right-sided congestive heart failure Conclusion/Plan: Pt's BNP was 950 in the ED. We stopped the D5 1/2 NS that was started, due to her having marked edema. We then gave IV lasix for 2 days and now she is on po Lasix. We decreased the Lasix dose from 40 to 20 mg daily as she is now euvolemic clinically. Follow BMP and Mg daily ICU monitoring of I/Os (4) Morbid obesity BMI 50-59 Conclusion/Plan: She reported having lost 80 lbs over 1 year. Further weight reduction needed. (5) Decreased white blood cell count, unspecified Conclusion/Plan: Over the past two years, pt has had a consistent decrease in WBCs, Hgb, and platelets. Will trend WBC results and follow outpatient (6) Hypernatremia Conclusion/Plan: Resolved. Pt was hypernatremic since admission We changed her Reg diet to a low salt diet and stopped iv fluids Follow BMP and I's and O's daily (7) Hypokalemia Conclusion/Plan: Resolved Pt's serum potassium was low due to loop diuretic use and replacement was given.
[2021-07-27] MEDS: ACETAMINOPHEN 325 MG TABLET PO PRN (12:00)
[2021-07-28] MEDS: ACETAMINOPHEN 325 MG TABLET PO PRN (06:19)
[2021-07-28] MEDS: SODIUM CHLORIDE FLUSH 0.9% 10 ML SYRINGE IVP SCH ×4 (06:20→22:39)
[2021-07-28] MEDS: hydrALAZINE 25 MG TABLET PO SCH ×3 (06:20→22:39)
[2021-07-28] MEDS: OMEGA-3 ACID ETHYL ESTERS 1 GM CAPSULE PO SCH ×2 (08:00→21:01)
[2021-07-28] MEDS: carvediloL 12.5 MG TABLET PO SCH ×2 (08:00→21:01)
[2021-07-28] MEDS: CHOLECALCIFEROL 25 MCG TABLET PO SCH (08:00)
[2021-07-28] MEDS: LOSARTAN 50 MG TABLET PO SCH (08:00)
[2021-07-28] MEDS: FUROSEMIDE 20 MG TABLET PO SCH (08:00)
[2021-07-28] MEDS: POTASSIUM CHLORIDE 20 MEQ TABLET PO SCH ×2 (08:00→21:01)
[2021-07-28] MEDS: ENOXAPARIN 40 MG/0.4 ML SYRINGE SUBQ SCH (08:30)
[2021-07-28 15:24] LABS: PATHOLOGIST SLIDE COMMENTS SEE SEPARATE REPORT
--- NOTE | 2021-07-28 17:16 | PROVIDER PROGRESS NOTE ---
Subjective - Prog Note Date Prog Note Date: 07/28/21 - Subjective Pt reports feeling: Improved Objective - Vital Signs/Intake & Output Reviewed Vital Signs: Yes Vital Signs: Vital Signs Temp Pulse Resp BP Pulse Ox 07/28/21 16:35 36.6 C 66 18 153/65 H 100 Intake & Output: Intake & Output 07/25/21 07/26/21 07/27/21 07/28/21 23:59 23:59 23:59 23:59 Intake Total 2750 1730 3105 1475 Output Total 1875 1790 500 800 Balance 875 -60 2605 675 - Objective General Appearance: positive: No acute distress, Alert Eyes Bilateral: positive: Normal inspection ENT: positive: ENT inspection nml, No signs of dehydration Neck: positive: Other (Obese and cannot eval JVP) Respiratory: positive: No respiratory distress, Breath sounds nml Cardiovascular: positive: No murmur (distant heart sounds due to obesity) Abdomen: positive: Other (Obese with pannus) Extremities: positive: Non-tender, No pedal edema Neurologic/Psychiatric: positive: Oriented x3 (Non-focal) - Lab Results Fish Bones: 07/25/21 04:10 07/27/21 04:23 Other Labs: Lab Results x24hrs 07/23/21 Range/Units 04:15 Specimen Type BLOOD Pathologist Review SEE SEPARATE REPORT Assessment/Plan - Problem List (1) Acute on chronic respiratory failure with hypoxia and hypercapnia Impression: Pt was in respiratory acidosis with CO2 narcosis at presentation, admitted to the ICU on BIPAP where she awoke. She admitted to non-compliance with her home CPAP device. After admission, RT and I heard how she switches from nasal cannula oxygen at home at 5 L/min daytime to her nasal pillows with CPAP machine: She just changes the tubing and confirmed that she does not plug in any oxygen at night while on CPAP at home. She was likely non-compliant with CPAP use at home (by her own admission) because she was getting air hunger and panicky by switching to CPAP with only an FiO2 of 21% (room air). Her daughter brought her home CPAP machine and the first night first her nasal pillows, then the next night her home mask was connected to suppl O2 overnight. She kept desaturating despite high FIO2 as high as 15L/min on both the nasal pillows and on the mask. She qualifies for a Home Ventilator machine, which was ordered. Also, will assess her FIO2 needs with walking twice daily. I watched her do this today: At rest on 3 L/per minute via n.c., her saturation was 90 - 95%. She started walking and her O2 saturation dropped to 70%. Her FiO2 was then increased to 4L then to 5 L and with this she recovered in under a minute up to 88-90% sat. (2) Obstructive sleep apnea Conclusion/Plan: Pt was diagnosed with PILAR in 2016. CPAP was ordered since January 2021 but she has had variable compliance. Her labs show chronic CO2 retention. Home CPAP and BiPAP are deemed ineffective, due to severity of her medical conditions to easily cause her hypercapnic situation. I ordered a noninvasive home ventilator for treatment, which may reduce hospital readmissions, prevent further complications and help the patient's recovery from her severe medical conditions. A Trilogy non-invasive home ventilator was approved by her insurance and will be delivered here tomorrow 07/29/21. We will then use her new Trilogy machine at bed time and adjust FIO2 settings for her. I anticipate discharge the next morning (07/30/21). (3) Acute on chronic right-sided congestive heart failure Conclusion/Plan: Pt's BNP was 950 in the ED. We stopped the D5 1/2 NS that was given, due to her having marked edema. We then gave IV lasix for 2 days and now she is on po Lasix. We have decreased the Lasix dose from 40 to 20 mg daily as she is now euvolemic clinically. Follow BMP and Mg daily ICU monitoring of I/Os (4) Morbid obesity BMI 50-59 Conclusion/Plan: She reported having lost 80 lbs over 1 year. Further weight reduction needed. (5) Decreased white blood cell count, unspecified Conclusion/Plan: Over the past two years, pt has had a consistent decrease in WBCs, Hgb, and platelets. Will trend WBC results and follow outpatient (6) Hypernatremia Conclusion/Plan: Resolved. Pt was hypernatremic since admission We changed her Reg diet to a low salt diet and stopped iv fluids Follow BMP and I's and O's daily (7) Hypokalemia Conclusion/Plan: Resolved Pt's serum potassium was low due to loop diuretic use and replacement was given.
[2021-07-28] MEDS: ENOXAPARIN 60 MG/0.6 ML SYRINGE SUBQ SCH (21:01)
[2021-07-29] MEDS: hydrALAZINE 25 MG TABLET PO SCH ×3 (05:45→21:53)
[2021-07-29 06:04] LABS: BASOPHILS % (AUTO) 0.8 %; EOSINOPHILS # (AUTO) 0.2 10^3/uL (0.0-0.7); EOSINOPHILS % (AUTO) 4.4 %; HCT - HEMATOCRIT 32.4 % (37.0-47.0); HGB - HEMOGLOBIN 9.2 g/dL (12.0-16.0); LYMPHOCYTES # (AUTO) 0.9 10^3/uL (1.5-3.5); LYMPHOCYTES % (AUTO) 24.9 %; MEAN CORPUSCULAR HEMOGLOBIN 26.1 pg (27.0-31.0); MEAN CORPUSCULAR HGB CONC 28.4 g/dL (32.0-36.0); MEAN CORPUSCULAR VOLUME 91.8 fL (81.0-99.0); MONOCYTES # (AUTO) 0.5 10^3/uL (0.0-1.0); MONOCYTES % (AUTO) 14.4 %; NEUTROPHILS % (AUTO) 55.2 %; PLT - PLATELET COUNT 172 10^3/uL (130-450); RED BLOOD COUNT 3.53 10^6/uL (4.20-5.40); RED CELL DISTRIBUTION WIDTH 21.1 % (12.0-15.0); WHITE BLOOD COUNT 3.6 x10^3/uL (4.8-10.8)
[2021-07-29 06:13] LABS: SLIDE REVIEW? Indicated
[2021-07-29 06:18] LABS: CALCIUM 9.1 mg/dL (8.5-10.3); CREATININE 0.8 mg/dL (0.4-1.0); POTASSIUM 3.6 mmol/L (3.5-5.0)
[2021-07-29 06:30] LABS: PLATELET ESTIMATE, MANUAL NORMAL (130-450,000) (NORMAL); PLATELET MORPHOLOGY NORMAL APPEARANCE (NORMAL); WBC MORPHOLOGY (MULTIPLE) NORMAL APPEARANCE (NORMAL)
[2021-07-29 07:14] LABS: PHOSPHORUS 4.6 mg/dL (2.5-4.6)
[2021-07-29] MEDS: FUROSEMIDE 20 MG TABLET PO SCH (08:25)
[2021-07-29] MEDS: CHOLECALCIFEROL 25 MCG TABLET PO SCH (08:25)
[2021-07-29] MEDS: ENOXAPARIN 60 MG/0.6 ML SYRINGE SUBQ SCH ×2 (08:25→20:37)
[2021-07-29] MEDS: carvediloL 12.5 MG TABLET PO SCH ×2 (08:25→20:37)
[2021-07-29] MEDS: LOSARTAN 50 MG TABLET PO SCH (08:26)
[2021-07-29] MEDS: POTASSIUM CHLORIDE 20 MEQ TABLET PO SCH ×2 (08:26→20:37)
[2021-07-29] MEDS: SODIUM CHLORIDE FLUSH 0.9% 10 ML SYRINGE IVP SCH ×3 (08:26→21:53)
[2021-07-29] MEDS: OMEGA-3 ACID ETHYL ESTERS 1 GM CAPSULE PO SCH ×2 (08:26→20:37)
[2021-07-29] MEDS: ACETAMINOPHEN 325 MG TABLET PO PRN ×2 (08:37→15:11)
[2021-07-29] MEDS: FERROUS GLUCONATE 324 MG TABLET PO SCH (12:23)
[2021-07-29] MEDS ORDERED: FUROSEMIDE 20 MG TABLET PO STA (15:17)
--- NOTE | 2021-07-29 15:23 | PROVIDER PROGRESS NOTE ---
Subjective - Prog Note Date Prog Note Date: 07/29/21 - Subjective Pt reports feeling: No change (Feels OK, ambulated in hallway. Is excited about her new Trilogy machine to arrive and be used her tonoight) Objective - Vital Signs/Intake & Output Reviewed Vital Signs: Yes Vital Signs: Vital Signs Temp Pulse Resp BP Pulse Ox 07/29/21 13:30 36.7 C 72 14 141/58 H 96 Intake & Output: Intake & Output 07/26/21 07/27/21 07/28/21 07/29/21 23:59 23:59 23:59 23:59 Intake Total 1730 3105 1575 1500 Output Total 1790 500 800 0 Balance -60 2605 775 1500 - Objective General Appearance: positive: No acute distress, Alert Eyes Bilateral: positive: Normal inspection, EOMI ENT: positive: ENT inspection nml, No signs of dehydration Neck: positive: Other (Cannot eal JVP due to morbid obesity) Respiratory: positive: No respiratory distress (wearing O2 per n.c.), Breath sounds nml Cardiovascular: positive: Other (distant heart sounds due to morbid obesity) Abdomen: positive: Other (Obese with pannus) Extremities: positive: No pedal edema (2+ ankle edema) Neurologic/Psychiatric: positive: Oriented x3 (non-focal) - Lab Results Fish Bones: 07/29/21 05:47 07/29/21 05:47 Other Labs: Lab Results x24hrs 07/29/21 07/29/21 07/29/21 Range/Units 05:47 05:47 05:47 Specimen Type WBC 3.6 L (4.8-10.8) x10^3/uL RBC 3.53 L (4.20-5.40) 10^6/uL Hgb 9.2 L (12.0-16.0) g/dL Hct 32.4 L (37.0-47.0) % MCV 91.8 (81.0-99.0) fL MCH 26.1 L (27.0-31.0) pg MCHC 28.4 L (32.0-36.0) g/dL RDW 21.1 H (12.0-15.0) % Plt Count 172 (130-450) 10^3/uL MPV 10.0 (7.9-10.8) fL Neut # (Auto) 2.0 (1.5-6.6) 10^3/uL Lymph # (Auto) 0.9 L (1.5-3.5) 10^3/uL [place] # (Auto) 0.5 (0.0-1.0) 10^3/uL Eos # (Auto) 0.2 (0.0-0.7) 10^3/uL Baso # (Auto) 0.0 (0.0-0.1) 10^3/uL Absolute Nucleated RBC 0.00 x10^3/uL Nucleated RBC % 0.0 /100WBC Manual Slide Review Indicated Pathologist Review WBC Morphology NORMAL APPEARANCE (NORMAL) Platelet Estimate NORMAL (130-450,000) (NORMAL) Platelet Morphology NORMAL APPEARANCE (NORMAL) RBC Morph Micro Appear 2+ HYPOCHROMASIA (NORMAL) Sodium 141 (135-145) mmol/L Potassium 3.6 (3.5-5.0) mmol/L Chloride 90 L (101-111) mmol/L Carbon Dioxide 42 H* (21-32) mmol/L Anion Gap 9.0 (6-13) BUN 16 (6-20) mg/dL Creatinine 0.8 (0.4-1.0) mg/dL Estimated GFR (MDRD) 75 L (>89) Glucose 101 H (70-100) mg/dL Calcium 9.1 (8.5-10.3) mg/dL Phosphorus 4.6 (2.5-4.6) mg/dL Magnesium 2.0 (1.7-2.8) mg/dL 07/23/21 Range/Units 04:15 Specimen Type BLOOD WBC (4.8-10.8) x10^3/uL RBC (4.20-5.40) 10^6/uL Hgb (12.0-16.0) g/dL Hct (37.0-47.0) % MCV (81.0-99.0) fL MCH (27.0-31.0) pg MCHC (32.0-36.0) g/dL RDW (12.0-15.0) % Plt Count (130-450) 10^3/uL MPV (7.9-10.8) fL Neut # (Auto) (1.5-6.6) 10^3/uL Lymph # (Auto) (1.5-3.5) 10^3/uL [place] # (Auto) (0.0-1.0) 10^3/uL Eos # (Auto) (0.0-0.7) 10^3/uL Baso # (Auto) (0.0-0.1) 10^3/uL Absolute Nucleated RBC x10^3/uL Nucleated RBC % /100WBC Manual Slide Review Pathologist Review SEE SEPARATE REPORT WBC Morphology (NORMAL) Platelet Estimate (NORMAL) Platelet Morphology (NORMAL) RBC Morph Micro Appear (NORMAL) Sodium (135-145) mmol/L Potassium (3.5-5.0) mmol/L Chloride (101-111) mmol/L Carbon Dioxide (21-32) mmol/L Anion Gap (6-13) BUN (6-20) mg/dL Creatinine (0.4-1.0) mg/dL Estimated GFR (MDRD) (>89) Glucose (70-100) mg/dL Calcium (8.5-10.3) mg/dL Phosphorus (2.5-4.6) mg/dL Magnesium (1.7-2.8) mg/dL Assessment/Plan - Problem List (1) Acute on chronic respiratory failure with hypoxia and hypercapnia Impression: Pt was in respiratory acidosis with CO2 narcosis at presentation, admitted to the ICU on BIPAP where she awoke. She admitted to non-compliance with her home CPAP device. After admission, RT and I heard how she switches from nasal cannula oxygen at home at 5 L/min daytime to her nasal pillows with CPAP machine: She just changes the tubing and confirmed that she does not plug in any oxygen at night while on CPAP at home. She was likely non-compliant with CPAP use at home (by her own admission) because she was getting air hunger and panicky by switching to CPAP with only an FiO2 of 21% (room air). Her daughter brought her home CPAP machine and the first night first her nasal pillows, then the next night her home mask was connected to suppl O2 overnight. She kept desaturating despite high FIO2 as high as 15L/min on both the nasal pillows and on the mask. She qualifies for a Home Ventilator machine, which was ordered and it has arrived here. She will have her FIO2 titrated on it tonight. Also, will assess her FIO2 needs with walking twice daily. I watched her do this yesterday: At rest on 3 L/per minute via n.c., her saturation was 90 - 95%. She started walking and her O2 saturation dropped to 70%. Her FiO2 was then increased to 4L then to 5 L and with this she recovered in under a minute up to 88-90% sat. She will need an oximetry study on the day of discharge to, adjust her O2 orders. (2) Obstructive sleep apnea Conclusion/Plan: Pt was diagnosed with PILAR in 2016. CPAP was ordered since January 2021 but she has had variable compliance. Her labs show chronic CO2 retention. Home CPAP and BiPAP are deemed ineffective, due to severity of her medical conditions to easily cause her hypercapnic situation. I ordered a noninvasive home ventilator for treatment, which may reduce hospital readmissions, prevent further complications and help the patient's recovery from her severe medical conditions. A Trilogy non-invasive home ventilator was approved and arrived. Will adjust her FIO2 on her new Trilogy machine at bedtime. I anticipate discharge tomorrow (3) Acute on chronic right-sided congestive heart failure Conclusion/Plan: Pt's BNP was 950 in the ED. She got IV lasix for 2 days and now she is on po Lasix. We decreased the Lasix dose from 40 to 20 mg daily and she has redeveloped significant ankle edema. Will give Lasix 20 mg po bid today then resume 40 mg daily starting tomorrow Follow BMP and Mg daily ICU monitoring of I/Os (4) Morbid obesity BMI 50-59 Conclusion/Plan: She reported having lost 80 lbs over 1 year. Further weight reduction needed. (5) Decreased white blood cell count, unspecified Conclusion/Plan: Over the past two years, pt has had a consistent decrease in WBCs, Hgb, and platelets. Will trend WBC results and follow outpatient (6) Hypernatremia Conclusion/Plan: Resolved. Pt was hypernatremic since admission We changed her Reg diet to a low salt diet and stopped iv fluids Follow BMP and I's and O's daily (7) Hypokalemia Conclusion/Plan: Resolved Pt's serum potassium was low due to loop diuretic use and replacement is being given.
[2021-07-29] MEDS ORDERED: POTASSIUM CHLORIDE 20 MEQ TABLET PO ONE (15:36)
[2021-07-29] MEDS ORDERED: FUROSEMIDE 20 MG TABLET PO SCH (21:00)
[2021-07-30] MEDS: hydrALAZINE 25 MG TABLET PO SCH (05:44)
[2021-07-30 06:04] LABS: CALCIUM, IONIZED 1.1 mmol/L (1.15-1.33); VBG PH 7.434 (7.31-7.41)
[2021-07-30 06:06] LABS: BASOPHILS % (AUTO) 0.9 %; EOSINOPHILS # (AUTO) 0.1 10^3/uL (0.0-0.7); EOSINOPHILS % (AUTO) 4.2 %; HCT - HEMATOCRIT 28.5 % (37.0-47.0); HGB - HEMOGLOBIN 8.2 g/dL (12.0-16.0); LYMPHOCYTES # (AUTO) 0.9 10^3/uL (1.5-3.5); LYMPHOCYTES % (AUTO) 27.9 %; MEAN CORPUSCULAR HEMOGLOBIN 26.5 pg (27.0-31.0); MEAN CORPUSCULAR HGB CONC 28.8 g/dL (32.0-36.0); MEAN CORPUSCULAR VOLUME 91.9 fL (81.0-99.0); MEAN PLATELET VOLUME 10.5 fL (7.9-10.8); MONOCYTES # (AUTO) 0.5 10^3/uL (0.0-1.0); MONOCYTES % (AUTO) 16.2 %; NEUTROPHILS # (AUTO) 1.7 10^3/uL (1.5-6.6); NEUTROPHILS % (AUTO) 50.5 %; PLT - PLATELET COUNT 163 10^3/uL (130-450); RED CELL DISTRIBUTION WIDTH 20.7 % (12.0-15.0); WHITE BLOOD COUNT 3.3 x10^3/uL (4.8-10.8)
[2021-07-30 06:19] LABS: MAGNESIUM 2.1 mg/dL (1.7-2.8); PHOSPHORUS 4.1 mg/dL (2.5-4.6)
[2021-07-30 06:24] LABS: CALCIUM 8.9 mg/dL (8.5-10.3); CREATININE 0.7 mg/dL (0.4-1.0); POTASSIUM 3.5 mmol/L (3.5-5.0)
[2021-07-30 06:44] LABS: SLIDE REVIEW? Indicated
[2021-07-30 06:51] LABS: PLATELET ESTIMATE, MANUAL NORMAL (130-450,000) (NORMAL)
[2021-07-30 07:48] VITALS: BP 138/63
[2021-07-30] MEDS: FERROUS GLUCONATE 324 MG TABLET PO SCH (08:28)
[2021-07-30] MEDS: CHOLECALCIFEROL 25 MCG TABLET PO SCH (08:28)
[2021-07-30] MEDS: carvediloL 12.5 MG TABLET PO SCH (08:28)
[2021-07-30] MEDS: POTASSIUM CHLORIDE 20 MEQ TABLET PO SCH (08:28)
[2021-07-30] MEDS: ENOXAPARIN 60 MG/0.6 ML SYRINGE SUBQ SCH (08:28)
[2021-07-30] MEDS: OMEGA-3 ACID ETHYL ESTERS 1 GM CAPSULE PO SCH (08:28)
[2021-07-30] MEDS: LOSARTAN 50 MG TABLET PO SCH (08:28)
[2021-07-30] MEDS: SODIUM CHLORIDE FLUSH 0.9% 10 ML SYRINGE IVP SCH (08:29)
--- NOTE | 2021-07-30 08:34 | Discharge Plan ---
Discharge Plan Problem Reviewed?: Yes Disposition: Home, Self Care Condition: Stable Prescriptions: Ferrous Gluconate [Fergon] 324 mg PO DAILYWM #30 tablet Potassium Chloride [Klor-Con 10] 30 meq PO DAILY #90 tab Furosemide [Lasix] 40 mg PO DAILY #30 tablet Diet: Low Sodium Activity Restrictions: Activity as Tolerated Shower Restrictions: No Driving Restrictions: No Assistance Devices: Walker Instruction Topics: Iron tablets capsules extended-release tablets, Furosemide tablets, BiPap Using, Heart Failure Sleep Apnea Health Concerns: You were hospitalized because of very low oxygen levels and very high carbon dioxide levels. This was from your sleep apnea condition and from incorrect home CPAP settings. You also had fluid retention (heart failure) caused by this lung condition. You received IV diuretics and then oral Furosemide tablets. You are being sent home with a new prescription for furosemide 40 mg daily. Potassium replacement has also been newly ordered for you at a slightly higher dose. You should decrease the salt in your diet. These measures will help prevent fluid buildup. You qualified for a home noninvasive ventilator. The device is helping your nighttime oxygen stay in a healthy range. The machine settings have been preset for you and please use it every night. You were retested to see how much oxygen you need at home, and the settings should be at 3 L/min oxygen at rest, 6 L/min oxygen with activity, then go on your Trilogy machine for nighttime/sleep and naps, which needs oxygen set at 8 L/min of oxygen. Resume all your other prehospital medications (except not the Potassium 20 mEq old dose). You also were found to be low in iron therefore iron replacement tablets have been ordered for you. All new prescriptions have been electronically sent to your [facility] pharmacy in [place]. You should see your PCP and/or Machine I Cutter in the next 1 - 2 weeks for a hospital follow-up visit. Bring your new Trilogy machine with you to the Machine I Cutter appointment, since he may want to fine-tune the settings. Plan of Treatment: As above. Care Goals: Improvement in symptoms and stabilization are the goals. Assessment: The patient understands and is agreeable with the plan. Additional Instructions or Follow Up instructions: If you have new or worsening symptoms, call your PCP or your Machine I Cutter for advice, or come to the Emergency Room. You qualify for attending Pulmonary Rehab her as an outpatient, because of your underlying lung condition. You would need to be referred there by your PCP or Machine I Cutter. Please consider this and discuss it with your providers. Follow-Up Care: [facility] - Pulmonary No Smoking: If you smoke, Please STOP! Call for help. Follow-up with: JAYDON KHANNA MD [Physician No Access] -
--- NOTE | 2021-07-30 08:46 | DISCHARGE SUMMARY ---
Discharge Summary Admit Date: 07/23/21 Discharge Date: 07/30/21 Discharging Provider: Dr Rebecca Mendez Primary Care Provider: Dr Joie Victoria (PCP), Dr Fozia Palm (Pulmonry/Sleep Medicine) Code Status: Attempt Resuscitation Condition at Discharge: Stable Discharge Disposition: 01 Home, Self Care - HPI History of Present Illness: From the admission H&P of Dr. Portia Mendez: This is a 55 y/o white female who presents from home. She was found by family to be somnolent. At baseline pt uses 5L NC of home oxygen since January 2021. The patient left the house earlier today to get a COVID 19 test and did not havea replacement tank for her oxygen, thus it ran out when she was away from home. When she got home, she had respiratory distress while family members struggled to connect the oxygen concentrator. Then pt has a syncopal episode. EMS was called and found her obtunded. In the ED, she was found to be in respiratory acidosis and hypercarbic with ABG showing a pH of 7.25 and a PCO2 of 113. She was placed on BIPAP and became more alert. Chest XR shows cardiomegaly. Pt also has elevated BNP and was given IV lasix while in ED. Pt has known hx of PILAR, morbid obesity, obesity hypoventilation syndrome, chronic respiratory failure with hypercapnia and hypoxia, CHF with preserved EF, chronic back pain, HTN, depression w/ anxiety, Cor [place], and GERD. Pt was diagnosed with PILAR in 2016 and advised to use CPAP machine for sleep in January 2021. She has managed to lose 80 pounds. Pt reports using CPAP with variable (minimal) adherence because of claustrophobia. She has had significant deterioration in overall functional status between last fall to now, has been unable to work. Blood gases show a definite chronic respiratory failure status with acute decompensation. At this time the only cause for decompensation we can find is continued non-compliance with CPAP and the acute lack of oxygen as she ran out of oxygen while travelling. While here we will diurese her, provide her with BiPAP and look into her home device non-compliance. - HOSPITAL COURSE Hospital Course: (1) Acute on chronic respiratory failure with hypoxia and hypercapnia Pt was in respiratory acidosis with CO2 narcosis at presentation, admitted to the ICU on BIPAP and then she awoke. She admitted to non-compliance with her home CPAP device but it was learned that she does not plug in any oxygen at night while on her CPAP at home. She was likely non-compliant because she was getting air hunger and panicky by getting only an FiO2 of 21% (room air). Her home CPAP machine was brought in, set up by RT using her nasal pillows, then the next night, using her home mask, connected to suppl O2, but she kept desaturating despite oxygen set at 15L/min, on both the nasal pillows and on the mask. She qualified for a Home Ventilator machine, which was ordered, approved, and it arrived here. She requires 8L/min suppl. on her Trilogy when sleeping. Also, we assessed her FIO2 needs with walking. She requires 3L at rest and 6L with activity. She already has home O2 tanks. (2) Obstructive sleep apnea Pt was diagnosed with PILAR in 2016. CPAP was ordered since January 2021 but she has had variable compliance. Her labs showed chronic CO2 retention. Her previous devices were deemed ineffective, due to severity of her medical conditions to easily cause her hypercapnic situation. I ordered a noninvasive home ventilator, which may reduce hospital readmissions, prevent further complications and help the patient's recovery from her severe medical conditions. A Trilogy non-invasive home ventilator was approved and arrived. We adjusted her FIO2 on her new Trilogy machine: she requires 8L/min suppl. (3) Acute on chronic right-sided congestive heart failure Her BNP was 950 in the ED. She got IV lasix for several days and then po Lasix. We decreased the Lasix dose from 40 to 20 mg daily and she redeveloped significa nt ankle edema. She was discharged to take Lasix 40 mg daily an Potassium 30 mEq daily. (4) Hypokalemia Pt's serum potassium was low due to loop diuretic use and replacement was prescribed. (5) Hypernatremia Pt was hypernatremic for several days. We changed her Reg diet to a low salt diet, and she got D5 IV for several days with iv Lasix. (6) Morbid obesity BMI 50-59 She reported having lost 80 lbs over 1 year. Further weight reduction needed. (7) Iron deficiiency anemia Over the past two years, pt has had a consistent decrease in WBCs, Hgb, and platelets. She was discharged on new Iron supplements. - ALLERGIES Allergies/Adverse Reactions: Allergies Allergy/AdvReac Type Severity Reaction Status Date / Time No Known Drug Allergies Allergy Verified 07/23/21 17:10 - MEDICATIONS Home Medications: Ambulatory Orders Medication Instructions Recorded Confirmed Aspirin [[place] Aspirin] 81 mg PO DAILY 02/04/21 07/23/21 Losartan Potassium [Cozaar] 100 mg PO DAILY 02/04/21 07/23/21 [place]-3/Dha/Epa/Fish Oil [Fish Oil 1 cap PO BID 02/04/21 07/23/21 1,000 mg Softgel] Cholecalciferol (Vitamin D3) 50 mcg PO DAILY 03/22/21 07/23/21 [Vitamin D3] Nystatin [Nystop] 1 applic TOP BID PRN #1 bottle 03/24/21 07/23/21 Carvedilol [Coreg] 25 mg PO BID 07/23/21 07/23/21 Hydralazine HCl 100 mg PO TID 07/23/21 07/23/21 Ferrous Gluconate [Fergon] 324 mg PO DAILYWM #30 tablet 07/30/21 Furosemide [Lasix] 40 mg PO DAILY #30 tablet 07/30/21 Potassium Chloride [Klor-Con 10] 30 meq PO DAILY #90 tab 07/30/21 - PHYSICAL EXAM AT DISCHARGE General Appearance: positive: No acute distress, Alert Eyes Bilateral: positive: Normal inspection, PERRL ENT: positive: ENT inspection nml, No signs of dehydration Neck: positive: Other (OBese and cannot eval JVP) Respiratory: positive: No respiratory distress, Breath sounds nml Cardiovascular: positive: Regular rate & rhythm, No murmur (distant heart sounds due to obesity) Abdomen: positive: Non-tender, Other (Obese with a pannus) Skin: positive: Warm, Dry Extremities: positive: Non-tender, Other (1+ edema to mid shins) Neurologic/Psychiatric: positive: Oriented x3 (Non-focal) - LABS Result Diagrams: 07/30/21 04:22 07/30/21 04:22 - DIAGNOSTIC IMAGING Diagnostic Imaging Results: Final report reviewed - FOLLOW UP Follow Up: See PCP and/or [facility] in 1-2 weeks in hospital follow-up. Bring new Trilogy machine to [facility] visit. - TIME SPENT Time Spent in Discharge (Minutes): 60
[2021-07-30] MEDS ORDERED: FUROSEMIDE 40 MG TABLET PO SCH (09:00)
== END 2021-07-30 12:20 | disposition home or self-care (01) | DRG 189 ==
LOC: EDUNIT# → ED 16:59 → ICU 18:51 → OBSVTOIN 07-24 11:40
PROVIDERS: ADMIT Specialist; ATTEND Internal Medicine
DX: J96.02 Acute respiratory failure with hypercapnia (principal); I50.33 Acute on chronic diastolic (congestive) heart failure; Z68.43 Body mass index [BMI] 50.0-59.9, adult; E87.0 Hyperosmolality and hypernatremia; E87.2 Acidosis; J96.01 Acute respiratory failure with hypoxia; G47.33 Obstructive sleep apnea (adult) (pediatric); I11.0 Hypertensive heart disease with heart failure; E87.6 Hypokalemia; E66.01 Morbid (severe) obesity due to excess calories; D50.9 Iron deficiency anemia, unspecified; Z20.822 Contact with and (suspected) exposure to COVID-19; R55 Syncope and collapse; G89.29 Other chronic pain; M54.9 Dorsalgia, unspecified; F41.8 Other specified anxiety disorders; K21.9 Gastro-esophageal reflux disease without esophagitis; I27.81 Cor pulmonale (chronic); D72.819 Decreased white blood cell count, unspecified; Z99.81 Dependence on supplemental oxygen; Z87.891 Personal history of nicotine dependence; Z91.19 Patient's noncompliance with other medical treatment and regimen
CPT/HCPCS: 36415; 36600; 71045; 80048; 80053; 82330; 82803; 83540; 83690; 83735; 83880; 84100; 84132; 84466; 84484; 85025; 87150; 87633; 93005; 94660; 94761; 96365; 96366; 96372; 96375; 96376; 99284; 99285; A9270; J1650

== ENCOUNTER 2021-12-03 14:29 | Outpatient (CLI) | payer MEDICAID | END 2021-12-03 14:30 | disposition critical access hospital (66) | LOC: EMS 14:29 | DX: R10.11 Right upper quadrant pain (principal); R10.31 Right lower quadrant pain | CPT/HCPCS: A0425; A0429; A0999 ==

== ENCOUNTER 2021-12-03 14:45 | Emergency (ER) | payer MEDICAID, OTHER ==
--- NOTE | 2021-12-03 15:00 | ED Physician Documentation ---
PD HPI ABD PAIN - Stated complaint Stated Complaint: RT FLANK PX - Chief complaint Chief Complaint: Abd Pain - History obtained from History obtained from: Patient PD PAST MEDICAL HISTORY - Past Medical History Cardiovascular: Congestive heart failure, Hypertension, Other (cor pulmonale ) Respiratory: Sleep apnea (diagnosed with sleep study in 2017, but no CPAP use until 2 mos ago), CPAP use Neuro: None (But aunt has MS and she says she "may have it too but it was never confirmed") Endocrine/Autoimmune: Other (Benign adrenal adenoma. Seen by endocrinology in 06/2015) GI: GERD PRIMARY CARE PEDIATRICIAN: None, Other (Post menopausal bleeding 10/2019. Negative endometrial biopsy) : None Psych: Depression, Anxiety Musculoskeletal: Chronic back pain (improved after lumbar surgery was done) Derm: Other (Had skin cancer of left cheek that was removed) - Past Surgical History Past Surgical History: Yes Ortho: Spine surgery /PRIMARY CARE PEDIATRICIAN: Other (; pt endorses one miscarriage) Derm: Skin cancer surgery - Present Medications Home Medications: Ambulatory Orders Medication Instructions Recorded Confirmed Aspirin [[place] Aspirin] 81 mg PO DAILY 02/04/21 07/23/21 Losartan Potassium [Cozaar] 100 mg PO DAILY 02/04/21 07/23/21 [place]-3/Dha/Epa/Fish Oil [Fish Oil 1 cap PO BID 02/04/21 07/23/21 1,000 mg Softgel] Cholecalciferol (Vitamin D3) 50 mcg PO DAILY 03/22/21 07/23/21 [Vitamin D3] Nystatin [Nystop] 1 applic TOP BID PRN #1 bottle 03/24/21 07/23/21 Carvedilol [Coreg] 25 mg PO BID 07/23/21 07/23/21 Hydralazine HCl 100 mg PO TID 07/23/21 07/23/21 Ferrous Gluconate [Fergon] 324 mg PO DAILYWM #30 tablet 07/30/21 Furosemide [Lasix] 40 mg PO DAILY #30 tablet 07/30/21 Potassium Chloride [Klor-Con 10] 30 meq PO DAILY #90 tab 07/30/21 - Allergies Allergies/Adverse Reactions: Allergies Allergy/AdvReac Type Severity Reaction Status Date / Time No Known Drug Allergies Allergy Verified 12/03/21 14:55 - Social History Does the pt smoke?: No Smoking Status: Never smoker Does the pt drink ETOH?: Yes Does the pt have substance abuse?: No - Immunizations Immunizations are current?: Yes - POLST Patient has POLST: No Results - Vitals Vitals: Vital Signs - 24 hr 12/03/21 14:52 Temperature 36.6 C Heart Rate 77 Respiratory 16 Rate Blood Pressure 179/107 H O2 Saturation 97 Oxygen O2 Source Nasal cannula
[2021-12-03] MEDS ORDERED: KETOROLAC 30 MG/ML VIAL IVP STA (15:05)
--- NOTE | 2021-12-03 15:07 | ED Physician Documentation ---
PD HPI ABD PAIN - Stated complaint Stated Complaint: RT FLANK PX - Chief complaint Chief Complaint: Abd Pain - History obtained from History obtained from: Patient, EMS - Additional information Additional information: 56-year-old woman with relatively complicated medical history for age, she has a history of CHF, hypertension, cor pulmonale, sleep apnea, oxygen dependence, chronic back pain status post lumbar surgery. She developed right flank pain suddenly this morning. She is never had this before. Its associated with increased shortness of breath which may be related to the pain itself. She denies pedal edema or calf pain. No urinary complaints. No abdominal pain. Review of Systems Ten Systems: 10 systems reviewed and negative Constitutional: reports: Reviewed and negative Nose: reports: Reviewed and negative Throat: reports: Reviewed and negative Cardiac: reports: Reviewed and negative Respiratory: reports: Reviewed and negative PD PAST MEDICAL HISTORY - Past Medical History Cardiovascular: Congestive heart failure, Hypertension, Other (cor pulmonale ) Respiratory: Sleep apnea (diagnosed with sleep study in 2017, but no CPAP use until 2 mos ago), CPAP use Neuro: None (But aunt has MS and she says she "may have it too but it was never confirmed") Endocrine/Autoimmune: Other (Benign adrenal adenoma. Seen by endocrinology in 06/2015) GI: GERD LEAD [address] SQL DEVELOPER: None, Other (Post menopausal bleeding 10/2019. Negative endometrial biopsy) : None Psych: Depression, Anxiety Musculoskeletal: Chronic back pain (improved after lumbar surgery was done) Derm: Other (Had skin cancer of left cheek that was removed) - Past Surgical History Past Surgical History: Yes Ortho: Spine surgery /LEAD [facility] SQL DEVELOPER: Other (; pt endorses one miscarriage) Derm: Skin cancer surgery - Present Medications Home Medications: Ambulatory Orders Medication Instructions Recorded Confirmed Aspirin [[place] Aspirin] 81 mg PO DAILY 02/04/21 07/23/21 Losartan Potassium [Cozaar] 100 mg PO DAILY 02/04/21 07/23/21 [place]-3/Dha/Epa/Fish Oil [Fish Oil 1 cap PO BID 02/04/21 07/23/21 1,000 mg Softgel] Cholecalciferol (Vitamin D3) 50 mcg PO DAILY 03/22/21 07/23/21 [Vitamin D3] Nystatin [Nystop] 1 applic TOP BID PRN #1 bottle 03/24/21 07/23/21 Carvedilol [Coreg] 25 mg PO BID 07/23/21 07/23/21 Hydralazine HCl 100 mg PO TID 07/23/21 07/23/21 Ferrous Gluconate [Fergon] 324 mg PO DAILYWM #30 tablet 07/30/21 Furosemide [Lasix] 40 mg PO DAILY #30 tablet 07/30/21 Potassium Chloride [Klor-Con 10] 30 meq PO DAILY #90 tab 07/30/21 - Allergies Allergies/Adverse Reactions: Allergies Allergy/AdvReac Type Severity Reaction Status Date / Time No Known Drug Allergies Allergy Verified 12/03/21 14:55 - Social History Does the pt smoke?: No Smoking Status: Never smoker Does the pt drink ETOH?: Yes Does the pt have substance abuse?: No - Immunizations Immunizations are current?: Yes - POLST Patient has POLST: No PD ED PE NORMAL - Vitals Vital signs reviewed: Yes - General General: Alert and oriented X 3, Other (She appears uncomfortable that said she does not want anything very strong for pain because they generally make her sick. BMI 54.9.) - Neck Neck: Supple, no meningeal sign, No bony TTP - Cardiac Cardiac: RRR, No murmur - Respiratory Respiratory: Other (Diminished breath sounds related to body habitus. Nonlabored.) - Abdomen Abdomen: Non tender - Back Back: Other (Tender over the right flank) - Derm Derm: Normal color, Warm and dry - Extremities Extremities: No edema, No calf tenderness / cord - Neuro Neuro: Alert and oriented X 3, Normal speech Results - Vitals Vitals: Vital Signs - 24 hr 12/03/21 12/03/21 12/03/21 14:52 16:28 18:05 Temperature 36.6 C Heart Rate 77 76 80 Respiratory 16 20 18 Rate Blood Pressure 179/107 H 156/60 H 125/59 L O2 Saturation 97 98 92 If not protocol 3 3 : Oxygen Flow, liters/minute Oxygen O2 Source Nasal cannula Oxygen Flow Rate 3 - Labs Labs: Laboratory Tests 12/03/21 12/03/21 12/03/21 15:19 15:19 15:30 WBC 7.3 RBC 3.49 L Hgb 10.3 L Hct 32.1 L MCV 92.0 MCH 29.5 MCHC 32.1 RDW 14.6 Plt Count 254 MPV 9.0 Neut # (Auto) 5.8 Lymph # (Auto) 0.8 L [place] # (Auto) 0.5 Eos # (Auto) 0.1 Baso # (Auto) 0.0 Absolute Nucleated RBC 0.00 Nucleated RBC % 0.0 ESR Sodium 141 Potassium 3.2 L Chloride 100 L Carbon Dioxide 32 Anion Gap 9.0 BUN 15 Creatinine 0.6 Estimated GFR (MDRD) 104 Glucose 104 H Lactic Acid Calcium 9.1 Total Bilirubin 1.0 AST 14 ALT 11 Alkaline Phosphatase 50 Troponin I High Sens C-Reactive Protein B-Natriuretic Peptide Total Protein 7.3 Albumin 3.9 Globulin 3.4 Albumin/Globulin Ratio 1.1 Procalcitonin Urine Color YELLOW Urine Clarity CLEAR Urine pH 8.5 H Ur Specific [place] 1.015 Urine Protein NEGATIVE Urine Glucose (UA) NEGATIVE Urine Ketones NEGATIVE Urine Occult Blood NEGATIVE Urine Nitrite NEGATIVE Urine Bilirubin NEGATIVE Urine Urobilinogen 0.2 (NORMAL) Ur Leukocyte Esterase NEGATIVE Ur Microscopic Review NOT INDICATED Urine Culture Comments NOT INDICATED Nasal Adenovirus (PCR) Nasal B. parapertussis DNA (PCR) Nasal Coronavir 229E PCR Nasal Coronavir HKU1 PCR Nasal Coronavir NL63 PCR Nasal Coronavir OC43 PCR Nasal Enterovir/Rhinovir PCR Nasal Influenza B PCR Nasal Influenza A PCR Nasal Parainfluen 1 PCR Nasal Parainfluen 2 PCR Nasal Parainfluen 3 PCR Nasal Parainfluen 4 PCR Nasal RSV (PCR) Nasal B.pertussis DNA PCR Nasal C.pneumoniae (PCR) [place] Human Metapneumo PCR Nasal M.pneumoniae (PCR) Nasal SARS-CoV-2 (PCR) 12/03/21 12/03/21 12/03/21 16:27 17:56 17:56 WBC RBC Hgb Hct MCV MCH MCHC RDW Plt Count MPV Neut # (Auto) Lymph # (Auto) [place] # (Auto) Eos # (Auto) Baso # (Auto) Absolute Nucleated RBC Nucleated RBC % ESR 31 H Sodium Potassium Chloride Carbon Dioxide Anion Gap BUN Creatinine Estimated GFR (MDRD) Glucose Lactic Acid Calcium Total Bilirubin AST ALT Alkaline Phosphatase Troponin I High Sens 12.0 C-Reactive Protein B-Natriuretic Peptide Total Protein Albumin Globulin Albumin/Globulin Ratio Procalcitonin Urine Color Urine Clarity Urine pH Ur Specific [place] Urine Protein Urine Glucose (UA) Urine Ketones Urine Occult Blood Urine Nitrite Urine Bilirubin Urine Urobilinogen Ur Leukocyte Esterase Ur Microscopic Review Urine Culture Comments Nasal Adenovirus (PCR) NOT DETECTED Nasal B. parapertussis DNA (PCR) NOT DETECTED Nasal Coronavir 229E PCR NOT DETECTED Nasal Coronavir HKU1 PCR NOT DETECTED Nasal Coronavir NL63 PCR NOT DETECTED Nasal Coronavir OC43 PCR NOT DETECTED Nasal Enterovir/Rhinovir PCR NOT DETECTED Nasal Influenza B PCR NOT DETECTED Nasal Influenza A PCR NOT DETECTED Nasal Parainfluen 1 PCR NOT DETECTED Nasal Parainfluen 2 PCR NOT DETECTED Nasal Parainfluen 3 PCR NOT DETECTED Nasal Parainfluen 4 PCR NOT DETECTED Nasal RSV (PCR) NOT DETECTED Nasal B.pertussis DNA PCR NOT DETECTED Nasal C.pneumoniae (PCR) NOT DETECTED [place] Human Metapneumo PCR NOT DETECTED Nasal M.pneumoniae (PCR) NOT DETECTED Nasal SARS-CoV-2 (PCR) NOT DETECTED 12/03/21 12/03/21 12/03/21 17:56 17:56 17:56 WBC RBC Hgb Hct MCV MCH MCHC RDW Plt Count MPV Neut # (Auto) Lymph # (Auto) [place] # (Auto) Eos # (Auto) Baso # (Auto) Absolute Nucleated RBC Nucleated RBC % ESR Sodium Potassium Chloride Carbon Dioxide Anion Gap BUN Creatinine Estimated GFR (MDRD) Glucose Lactic Acid 0.4 L Calcium Total Bilirubin AST ALT Alkaline Phosphatase Troponin I High Sens C-Reactive Protein < 1.0 B-Natriuretic Peptide 737 H Total Protein Albumin Globulin Albumin/Globulin Ratio Procalcitonin Urine Color Urine Clarity Urine pH Ur Specific [place] Urine Protein Urine Glucose (UA) Urine Ketones Urine Occult Blood Urine Nitrite Urine Bilirubin Urine Urobilinogen Ur Leukocyte Esterase Ur Microscopic Review Urine Culture Comments Nasal Adenovirus (PCR) Nasal B. parapertussis DNA (PCR) Nasal Coronavir 229E PCR Nasal Coronavir HKU1 PCR Nasal Coronavir NL63 PCR Nasal Coronavir OC43 PCR Nasal Enterovir/Rhinovir PCR Nasal Influenza B PCR Nasal Influenza A PCR Nasal Parainfluen 1 PCR Nasal Parainfluen 2 PCR Nasal Parainfluen 3 PCR Nasal Parainfluen 4 PCR Nasal RSV (PCR) Nasal B.pertussis DNA PCR Nasal C.pneumoniae (PCR) [place] Human Metapneumo PCR Nasal M.pneumoniae (PCR) Nasal SARS-CoV-2 (PCR) 12/03/21 17:56 WBC RBC Hgb Hct MCV MCH MCHC RDW Plt Count MPV Neut # (Auto) Lymph # (Auto) [place] # (Auto) Eos # (Auto) Baso # (Auto) Absolute Nucleated RBC Nucleated RBC % ESR Sodium Potassium Chloride Carbon Dioxide Anion Gap BUN Creatinine Estimated GFR (MDRD) Glucose Lactic Acid Calcium Total Bilirubin AST ALT Alkaline Phosphatase Troponin I High Sens C-Reactive Protein B-Natriuretic Peptide Total Protein Albumin Globulin Albumin/Globulin Ratio Procalcitonin < 0.05 Urine Color Urine Clarity Urine pH Ur Specific [place] Urine Protein Urine Glucose (UA) Urine Ketones Urine Occult Blood Urine Nitrite Urine Bilirubin Urine Urobilinogen Ur Leukocyte Esterase Ur Microscopic Review Urine Culture Comments Nasal Adenovirus (PCR) Nasal B. parapertussis DNA (PCR) Nasal Coronavir 229E PCR Nasal Coronavir HKU1 PCR Nasal Coronavir NL63 PCR Nasal Coronavir OC43 PCR Nasal Enterovir/Rhinovir PCR Nasal Influenza B PCR Nasal Influenza A PCR Nasal Parainfluen 1 PCR Nasal Parainfluen 2 PCR Nasal Parainfluen 3 PCR Nasal Parainfluen 4 PCR Nasal RSV (PCR) Nasal B.pertussis DNA PCR Nasal C.pneumoniae (PCR) [place] Human Metapneumo PCR Nasal M.pneumoniae (PCR) Nasal SARS-CoV-2 (PCR) - Rads (name of study) CT angiography of the chest Radiology: EMP read contemporaneously (Abnormal lungs consistent with a diffuse infectious process, embolic process versus metastatic disease is also considered. Small right and trace left pleural effusion. Possible pulmonary edema, moderate cardiomegaly, small pericardial effusion.) CT of the abdomen pelvis with IV contrast showing incidental findings only Radiology: EMP read contemporaneously PD MEDICAL DECISION MAKING - ED course ED course: 56-year-old woman with multiple comorbidities including CHF, hypertension, chronic oxygen use, sleep apnea, and chronic back pain presents by ambulance wi th right flank/posterior thorax pain of acute onset today. She is shortness of breath with it, but she thinks that may be from the pain. She has a chronic cough not worse than normal. No fevers. Work-up demonstrates fairly normal CBC with mild lymphopenia, mildly low potassium but otherwise normal chemistries, clean urinalysis without infection or blood and a negative bio fire panel. CT chest, pulmonary angiogram and abdomen pelvis notable for atypical bibasilar pneumonia concerning for embolic phenomenon with new right greater than left pleural effusions and pericardial effusions compared with a CT done in January of last year. The differential diagnosis remains broad includes both infectious and inflammatory etiologies. Given the need for extensive further work-up, we will start calling tertiary hospitals capable of cardiology and pulmonology consultations, potential CHARITY noting that I am not sure how diagnostic a TTE would be with with her BMI of 54.9 which is the only type of echo I can get at this facility. Accepted to [facility] by Dr Amanda Canseco at 194 Departure - Departure Disposition: 02 Transfer Acute Care Hosp Clinical Impression: Atypical pneumonia, Pleural effusion, Pericardial effusion, Flank pain Condition: Serious
[2021-12-03 15:24] LABS: BASOPHILS % (AUTO) 0.5 %; EOSINOPHILS # (AUTO) 0.1 10^3/uL (0.0-0.7); EOSINOPHILS % (AUTO) 1.5 %; HCT - HEMATOCRIT 32.1 % (37.0-47.0); HGB - HEMOGLOBIN 10.3 g/dL (12.0-16.0); LYMPHOCYTES # (AUTO) 0.8 10^3/uL (1.5-3.5); LYMPHOCYTES % (AUTO) 11.5 %; MEAN CORPUSCULAR HEMOGLOBIN 29.5 pg (27.0-31.0); MEAN CORPUSCULAR HGB CONC 32.1 g/dL (32.0-36.0); MONOCYTES # (AUTO) 0.5 10^3/uL (0.0-1.0); NEUTROPHILS # (AUTO) 5.8 10^3/uL (1.5-6.6); NEUTROPHILS % (AUTO) 79.2 %; PLT - PLATELET COUNT 254 10^3/uL (130-450); RED BLOOD COUNT 3.49 10^6/uL (4.20-5.40); RED CELL DISTRIBUTION WIDTH 14.6 % (12.0-15.0); WHITE BLOOD COUNT 7.3 x10^3/uL (4.8-10.8)
[2021-12-03 15:34] LABS: ALBUMIN 3.9 g/dL (3.2-5.5); ALBUMIN/GLOBULIN RATIO 1.1 (1.0-2.2); CALCIUM 9.1 mg/dL (8.5-10.3); CREATININE 0.6 mg/dL (0.4-1.0); POTASSIUM 3.2 mmol/L (3.5-5.0); TOTAL PROTEIN 7.3 g/dL (6.7-8.2)
[2021-12-03 15:41] LABS: BILIRUBIN,URINE NEGATIVE (NEGATIVE); GLUCOSE, URINE (UA) NEGATIVE (NEGATIVE); KETONES,URINE (UA) NEGATIVE (NEGATIVE); LEUKOCYTE ESTERASE, URINE NEGATIVE (NEGATIVE); NITRITE,URINE NEGATIVE (NEGATIVE); OCCULT BLOOD,URINE NEGATIVE (NEGATIVE); PH,URINE 8.5 PH (5.0-7.5); PROTEIN,URINE NEGATIVE (NEGATIVE); UROBILINOGEN,URINE 0.2 (NORMAL) E.U./dL (NORMAL)
[2021-12-03 15:44] LABS: CLARITY,URINE CLEAR (CLEAR)
[2021-12-03] MEDS ORDERED: ONDANSETRON 4 MG/2 ML VIAL IVP STA (16:30)
[2021-12-03] MEDS ORDERED: HYDROmorphone 1 MG/ML CARPUJECT IVP STA (16:30)
--- NOTE | 2021-12-03 16:48 | CT Report ---
PROCEDURE: Abdomen/Pelvis W INDICATIONS: R flank/back pain CONTRAST: IV CONTRAST: Optiray 320 ml: 100 PO CONTRAST: *NO PO CONTRAST TECHNIQUE: After the administration of IV contrast, 5 mm thick sections acquired from the diaphragms to the symp hysis. 5 mm thick coronal and sagittal reformats were acquired. For radiation dose reduction, the f ollowing was used: automated exposure control, adjustment of mA and/or kV according to patient size. COMPARISON: Correlation is made with the accompanying chest CT, 12/03/2021. Correlation is made with prior abdominal ultrasound, 07/18/2016. FINDINGS: Image quality: Excellent. ABDOMEN: Lung bases: At the lung bases, diffuse nodular opacities are seen. There is a small right-sided pleur al effusion and a trace left-sided pleural effusion. There is moderate coronary megaly seen, with a s mall pericardial effusion. Solid organs: Liver and spleen are normal in size and enhancement. Gallbladder wall does not appear thickened. Biliary system is non dilated. Pancreas enhances normally. No adrenal nodules. Kidn eys demonstrate normal size and enhancement, without hydronephrosis. Peritoneum and bowel: Bowel loops demonstrate normal wall thickness and caliber. No free fluid or a ir. Generalized colonic diverticulosis is seen, without findings of active diverticulitis. Nodes and vessels: No retroperitoneal or mesenteric adenopathy by size criteria. Aorta and inferior vena cava are normal in size. Miscellaneous: A mild fat-containing periumbilical hernia is seen. PELVIS: Genitourinary: Bladder wall thickness is normal. The uterus demonstrates an unremarkable appearance for age. No adnexal masses are seen. Miscellaneous: No inguinal hernias or adenopathy. Bones: No suspicious bony lesions. No vertebral body compression fractures. Mild dextroconvex scol iotic curvature is seen. Relatively prominent lower lumbar spine degenerative changes are seen. IMPRESSION: No acute abnormality of the abdomen or pelvis can be seen. (Abnormal lung bases. Please see the accompanying chest CT report.) Incidental note is made of: Small periumbilical hernia Diverticulosis, without findings of active diverticulitis. Dextroconvex scoliotic curvature Relatively prominent lower lumbar spine degenerative change Reviewed by: Raf Crews MD on 12/03/2021 3:46 PM [facility] Approved by: Raf Crews MD on 12/03/2021 3:46 PM [facility] Station ID: [id number]
--- NOTE | 2021-12-03 16:48 | CT Report ---
PROCEDURE: ANGIO CHEST W/WO INDICATIONS: R flank/back pain, pe protocol CONTRAST: IV CONTRAST: Optiray 320 ml: 100 PO CONTRAST: *NO PO CONTRAST TECHNIQUE: After the administration of intravenous contrast, 2 mm axial images were acquired from the pulmonary apices to the posterior costophrenic angles during the arterial phase. In addition, 1 mm lung kernel and 5 mm soft tissue kernel reconstructions were performed. 3-dimensional coronal oblique maximum int ensity projection (MIP) reformats, 8 mm axial MIP, and 5 mm coronal and sagittal MPR reformats were t hen performed through the thorax. For radiation dose reduction, the following was used: automated exp osure control, adjustment of mA and/or kV according to patient size. COMPARISON: Correlation is made with the accompanying abdomen and pelvis CT, 12/03/2021 FINDINGS: Image quality: This study is limited by body habitus. Pulmonary arteries: The density within the pulmonary arteries measures 220 Hounsfield units. Density measurements of greater than 250 are considered to be ideal for evaluation of pulmonary embolism. On this study, no large or central pulmonary oblique and be seen. The pulmonary arteries do not appear enlarged. 50 Lungs and pleura: The lungs are diffusely abnormal, with poorly defined nodular opacities, particular ly involving the lungs posteriorly. There is a small right-sided pleural effusion and a trace left-si ded pleural effusion. No pneumothorax is seen. Diffuse Some opacity can also be seen. Mediastinum: Heart size is moderately enlarged.There is a small pericardial effusion. No mediastina l or hilar adenopathy. Thoracic aorta is normal in caliber and enhancement. Esophagus is normal in caliber, without hiatal hernia. Bones and chest wall: No suspicious bony lesions. Ribs and thoracic spine appear intact throughout. No axillary or supraclavicular adenopathy. The thyroid is normal in size and there are no incident al findings. Abdomen: Visualized upper abdominal solid organs appear normal in the early arterial phase of enhanc ement. IMPRESSION: No pulmonary embolism is seen. The lungs are abnormal, with numerous nodular opacities, particularly posteriorly. This process is ne w compared to the 02/04/2021 examination. Diffuse infection is suspected. Please consider an embolic process. Metastatic disease is also possible, yet considered to be less likely. There is a small right-sided pleural effusion and a trace left-sided pleural effusion. Pulmonary parenchymal opacity can be seen. Please consider pulmonary edema. There is moderate cardiomegaly. There is a small pericardial effusion. Reviewed by: Raf Crews MD on 12/03/2021 3:47 PM HERMELINDA Approved by: Raf Crews MD on 12/03/2021 3:47 PM HERMELINDA Station ID: [id number]
[2021-12-03 17:21] LABS: B. PARAPERTUSSIS- RESP PCR PAN NOT DETECTED; B. PERTUSSIS- RESP PCR PANEL NOT DETECTED; C. PNEUMONIAE- RESP PCR PANEL NOT DETECTED; CORONAVIRUS 229E-RESP PCR NOT DETECTED; CORONAVIRUS HKU1-RESP PCR NOT DETECTED; CORONAVIRUS NL63-RESP PCR NOT DETECTED; CORONAVIRUS OC43-RESP PCR NOT DETECTED; HUMAN METAPNEUMOVIRUS NOT DETECTED; INFLUENZA A- RESP PCR PANEL NOT DETECTED; INFLUENZA B - RESP PCR PANEL NOT DETECTED; M. PNEUMONIAE- RESP PCR PANEL NOT DETECTED; PARAINFLUENZA VIRUS 1 NOT DETECTED; PARAINFLUENZA VIRUS 2 NOT DETECTED; PARAINFLUENZA VIRUS 3 NOT DETECTED; PARAINFLUENZA VIRUS 4 NOT DETECTED; RHINOVIRUS/ENTEROVIRUS NOT DETECTED; RSV- RESP PCR PANEL NOT DETECTED; SARS-CoV-2 -RESP PCR PANEL NOT DETECTED
[2021-12-03] MEDS ORDERED: HYDROmorphone 1 MG/ML CARPUJECT IVP PRN (17:48)
[2021-12-03] MEDS ORDERED: ONDANSETRON 4 MG/2 ML VIAL IVP PRN (17:49)
[2021-12-03] MEDS ORDERED: POTASSIUM CHLORIDE 20 MEQ TABLET PO STA (19:48)
[2021-12-03] MEDS ORDERED: carvediloL 12.5 MG TABLET PO SCH (21:00)
[2021-12-03 22:46] VITALS: BP 128/59
[2021-12-04] MEDS ORDERED: ASPIRIN CHEW 81 MG TABLET PO SCH (09:00)
[2021-12-04] MEDS ORDERED: LOSARTAN 50 MG TABLET PO SCH (09:00)
== END 2021-12-04 | disposition short-term general hospital (02) ==
LOC: EDUNIT# → ED 14:45
DX: J18.9 Pneumonia, unspecified organism (principal); J90 Pleural effusion, not elsewhere classified; I31.3 Pericardial effusion (noninflammatory); Z20.822 Contact with and (suspected) exposure to COVID-19
CPT/HCPCS: 36415; 71275; 74177; 80053; 81003; 83605; 83880; 84145; 84484; 85025; 85651; 86140; 87040; 87633; 96374; 96375; 96376; 99283; 99285; A9270; J1170; Q9967; 81001; 87086

== ENCOUNTER 2021-12-14 13:03 | Outpatient (CLI) | payer MEDICAID ==
[2021-12-14 17:42] LABS: BASOPHILS % (AUTO) 0.8 %; EOSINOPHILS # (AUTO) 0.1 10^3/uL (0.0-0.7); EOSINOPHILS % (AUTO) 2.1 %; HCT - HEMATOCRIT 34.8 % (37.0-47.0); LYMPHOCYTES # (AUTO) 1.2 10^3/uL (1.5-3.5); LYMPHOCYTES % (AUTO) 22.9 %; MEAN CORPUSCULAR HEMOGLOBIN 29.3 pg (27.0-31.0); MEAN CORPUSCULAR HGB CONC 31.6 g/dL (32.0-36.0); MEAN CORPUSCULAR VOLUME 92.8 fL (81.0-99.0); MEAN PLATELET VOLUME 9.7 fL (7.9-10.8); MONOCYTES # (AUTO) 0.6 10^3/uL (0.0-1.0); MONOCYTES % (AUTO) 10.9 %; NEUTROPHILS # (AUTO) 3.3 10^3/uL (1.5-6.6); NEUTROPHILS % (AUTO) 63.1 %; PLT - PLATELET COUNT 281 10^3/uL (130-450); RED BLOOD COUNT 3.75 10^6/uL (4.20-5.40); RED CELL DISTRIBUTION WIDTH 14.3 % (12.0-15.0); WHITE BLOOD COUNT 5.2 x10^3/uL (4.8-10.8)
[2021-12-14 18:03] LABS: % IRON SATURATION 12 % (20-50); ALBUMIN 3.9 g/dL (3.2-5.5); ALBUMIN/GLOBULIN RATIO 1.2 (1.0-2.2); ALKALINE PHOSPHATASE 49 IU/L (42-121); ALT ALANINE AMINOTRANSFERASE 12 IU/L (10-60); AST ASPARTATE AMINOTRANSFERASE 15 IU/L (10-42); BILIRUBIN,TOTAL 0.7 mg/dL (0.2-1.0); BUN - BLOOD UREA NITROGEN 12 mg/dL (6-20); CALCIUM 9.3 mg/dL (8.5-10.3); CARBON DIOXIDE - CO2 35 mmol/L (21-32); CHLORIDE 100 mmol/L (101-111); CHOLESTEROL 215 mg/dL; CREATININE 0.6 mg/dL (0.4-1.0); GFR - MDRD 104 (>89); GLUCOSE 90 mg/dL (70-100); HDL CHOLESTEROL 54 mg/dL; IRON 46 ug/dL (28-170); LDL CHOLESTEROL,CALCULATED 142 mg/dL; LDL/HDL RATIO 2.6 (<4.4); POTASSIUM 3.4 mmol/L (3.5-5.0); SODIUM 140 mmol/L (135-145); TOTAL IRON BINDING CAPACITY 375 ug/dL (250-450); TOTAL PROTEIN 7.2 g/dL (6.7-8.2); TRANSFERRIN 268 mg/dL (192-382); TRIGLYCERIDES 94 mg/dL; VLDL CHOLESTEROL 19 mg/dL
[2021-12-14 18:13] LABS: FERRITIN 32.1 ng/mL (11.0-306.8)
[2021-12-14 20:39] LABS: ESTIMATED AVERAGE GLUCOSE 68 mg/dL (70-100)
== END 2021-12-14 13:04 | disposition home or self-care (01) ==
LOC: LAB.N 13:03
PROVIDERS: ATTEND Physician Assistant
DX: I10 Essential (primary) hypertension (principal); D64.9 Anemia, unspecified; E66.01 Morbid (severe) obesity due to excess calories
CPT/HCPCS: 36415; 80053; 80061; 82607; 82728; 83036; 83540; 83721; 84466; 85025

== ENCOUNTER 2021-12-29 08:00 | Outpatient (CLI) | payer MEDICAID ==
--- NOTE | 2021-12-29 11:17 | XRAY Report ---
PROCEDURE: Knee 4 View BILAT INDICATIONS: BILAT KNEE PAIN TECHNIQUE: 4 views of the bilateral knee(s) were acquired. COMPARISON: None. FINDINGS: Bones: No fractures or dislocations. No suspicious bony lesions. There is severe bilateral medial compartment narrowing, right greater than left. Moderate bilateral lateral compartment narrowing is p resent, left greater than right. There is moderate to severe bilateral patellofemoral compartment becky rowing. Prominent periarticular osteophytes are most notable in the lateral compartments bilaterally, right greater than left. Areas of subchondral sclerosis are present. No definitive erosions. Soft tissues: No joint effusion. No suspicious soft tissue calcifications. IMPRESSION: Tricompartmental arthritic change most severe medially as above. Reviewed by: Julissa Singer MD on 12/29/2021 11:16 AM PDT Approved by: uJlissa Singer MD on 12/29/2021 11:16 AM PDT Station ID: [id number]
== END 2021-12-29 23:59 | disposition home or self-care (01) ==
LOC: DI.WOS 08:00
PROVIDERS: ATTEND Physician Assistant Surgical
DX: M17.0 Bilateral primary osteoarthritis of knee (principal)

== ENCOUNTER 2022-01-05 14:14 | Outpatient (CLI) | payer MEDICAID ==
--- NOTE | 2022-01-06 10:17 | Mammography Report ---
BILATERAL DIGITAL SCREENING MAMMOGRAM 3D/2D: 01/05/2022 CLINICAL: Routine screening. Comparison is made to exams dated: 12/22/2020 mammogram, 07/10/2018 mammogram, 04/13/2016 mammogram, 11/13 mammogram, and 05/01/2013 mammogram - [facility]. There are scattered areas of fibroglandular density in both breasts (category b / 25%-50% glandular t issue). No significant masses, calcifications, or other findings are seen in either breast. There has been no significant interval change. IMPRESSION: NEGATIVE There is no mammographic evidence of malignancy. A 1 year screening mammogram is recommended. Based on Tyrer-Cuzick model (a risk assessment model), the patient's lifetime risk is 20.7% and her 1 0 year risk is 6.5%. If a patient has an elevated risk, a more comprehensive evaluation should be con sidered and/or a referral to a genetic counselor. The [place] [employer], [employer], and NCCN Guidelines advise the consideration of Breast MRI as an adjunct to screening mammog mannie in patients whose "Lifetime risk to develop breast cancer" is 20% or higher. This exam was interpreted at Station ID: [id number]. NOTE: For mammograms, a report in lay terms will be sent to the patient. Approximately 15% of breast malignancies will not be visualized mammographically. In the management of a palpable breast mass, a negative mammogram must not discourage biopsy of a clinically suspicious lesion. Electronically Signed By: Temo jama/silvana:01/05/2022 22:22:24 ACR BI-RADS Category 1: Negative 3341F PARENCHYMAL PATTERN: (A) - The breast(s) demonstrate(s) scattered fibroglandular densities. BI-RADS CATEGORY: (1) - 1 RECOMMENDATION: (ANNUAL) - Recommend routine annual screening mammography. [id number] 1 year screening LATERALITY: (B)
== END 2022-01-05 14:15 | disposition home or self-care (01) ==
LOC: DI.N 14:14
PROVIDERS: ATTEND Physician Assistant
DX: Z12.31 Encounter for screening mammogram for malignant neoplasm of breast (principal)

== ENCOUNTER 2022-01-09 15:25 | Outpatient (CLI) | payer MEDICAID ==
[~2022-01-09 15:25] MED LIST: GADOBUTROL 15 MMOL/15 ML VIAL ONE
[2022-01-09] MEDS ORDERED: GADOBUTROL 15 MMOL/15 ML VIAL IVP ONE (19:01)
--- NOTE | 2022-01-10 09:25 | MRI Report ---
PROCEDURE: BRAIN W/WO INDICATIONS: WHITE MATTER DISEASE CONTRAST: gadavist 13.5ml TECHNIQUE: Noncontrast axial T1 spin echo, axial T2 fast spin echo, sagittal and axial FLAIR, coronal T2 fast sp in echo, axial gradient echo, axial diffusion and ADC through the brain. After the administration of contrast, axial and coronal T1 spin echo with fat saturation through the brain. COMPARISON: No prior studies are available for review at the time of this dictation.. FINDINGS: Image quality: Excellent. CSF spaces: Basal cisterns are patent. No extra-axial fluid collections. Ventricles are normal in size and shape. Brain: Relatively prominent foci of T2-weighted hyperintensity can be seen within the periventricula r and deep white matter. A few of the periventricular foci demonstrate a perpendicular orientation to the lateral ventricles. There is involvement of the corpus callosum seen. Within the posterior left medulla there is a subtle T2 hyperintense focus seen, as on series 8 image 4. No definite cerebellar lesions are seen. These lesions do not enhance. There is an enhancing extra-axial mass seen anterior to the right frontal lobe measuring 12 x 10 x 13 mm, as on series 14 image 73 and on series 15 image 67. No definite additional enhancing lesions are seen. No midline shift. No intracranial bleeds. The brainstem appears normal. Diffusion-weighted images demonstrate no acute ischemic insults. No chronic ischemic insults. Normal intravascular flow void s are present. Skull and face: Calvarial marrow is normal in signal. Orbits appear normal. Sinuses: Sinuses and mastoids appear clear. IMPRESSION: Numerous foci of T2-weighted hyperintensity are seen, which are moderately suspicious for multiple sc lerosis. In a patient of this age, please also consider chronic small vessel ischemic change. 13 mm presumed meningioma seen anterior to the right frontal lobe. Reviewed by: Raf Crews MD on 01/10/2022 8:24 AM HERMELINDA Approved by: Raf Crews MD on 01/10/2022 8:24 AM HERMELINDA Station ID: [id number]
== END 2022-01-09 15:26 | disposition home or self-care (01) ==
LOC: DI 15:25
PROVIDERS: ATTEND Physician Assistant
DX: R90.82 White matter disease, unspecified (principal); R51.9 Headache, unspecified
CPT/HCPCS: 70553; A9585

== ENCOUNTER 2022-06-07 10:35 | Outpatient (CLI) | payer MEDICAID ==
[2022-06-07 11:52] LABS: BASOPHILS # (AUTO) 0.1 10^3/uL (0.0-0.1); EOSINOPHILS # (AUTO) 0.2 10^3/uL (0.0-0.7); EOSINOPHILS % (AUTO) 2.8 %; HCT - HEMATOCRIT 37.5 % (37.0-47.0); LYMPHOCYTES # (AUTO) 1.2 10^3/uL (1.5-3.5); LYMPHOCYTES % (AUTO) 18.4 %; MEAN CORPUSCULAR VOLUME 96.9 fL (81.0-99.0); MEAN PLATELET VOLUME 9.5 fL (7.9-10.8); MONOCYTES # (AUTO) 0.7 10^3/uL (0.0-1.0); MONOCYTES % (AUTO) 10.2 %; NEUTROPHILS # (AUTO) 4.5 10^3/uL (1.5-6.6); NEUTROPHILS % (AUTO) 67.5 %; PLT - PLATELET COUNT 299 10^3/uL (130-450); RED BLOOD COUNT 3.87 10^6/uL (4.20-5.40); RED CELL DISTRIBUTION WIDTH 12.4 % (12.0-15.0); WHITE BLOOD COUNT 6.7 x10^3/uL (4.8-10.8)
[2022-06-07 12:24] LABS: THYROID STIMULATING HORMONE 2.68 uIU/mL (0.34-5.60)
[2022-06-07 12:28] LABS: FERRITIN 57.3 ng/mL (11.0-306.8)
[2022-06-07 12:37] LABS: % IRON SATURATION 25 % (20-50); ALBUMIN 3.8 g/dL (3.2-5.5); ALKALINE PHOSPHATASE 63 IU/L (42-121); ALT ALANINE AMINOTRANSFERASE 16 IU/L (10-60); AST ASPARTATE AMINOTRANSFERASE 15 IU/L (10-42); BILIRUBIN,TOTAL 0.6 mg/dL (0.2-1.0); BUN - BLOOD UREA NITROGEN 34 mg/dL (6-20); CALCIUM 9.5 mg/dL (8.5-10.3); CARBON DIOXIDE - CO2 29 mmol/L (21-32); CHLORIDE 107 mmol/L (101-111); CHOLESTEROL 156 mg/dL; CREATININE 1.2 mg/dL (0.4-1.0); GFR - MDRD 47 (>89); GLUCOSE 105 mg/dL (70-100); HDL CHOLESTEROL 52 mg/dL; IRON 81 ug/dL (28-170); LDL CHOLESTEROL,CALCULATED 90 mg/dL; LDL/HDL RATIO 1.7 (<4.4); POTASSIUM 5.5 mmol/L (3.5-5.0); SODIUM 140 mmol/L (135-145); TOTAL IRON BINDING CAPACITY 319 ug/dL (250-450); TOTAL PROTEIN 7.8 g/dL (6.7-8.2); TRANSFERRIN 228 mg/dL (192-382); TRIGLYCERIDES 70 mg/dL; VLDL CHOLESTEROL 14 mg/dL
== END 2022-06-07 10:36 | disposition home or self-care (01) ==
LOC: LAB.N 10:35
PROVIDERS: ATTEND Physician Assistant
DX: E78.5 Hyperlipidemia, unspecified (principal); G47.62 Sleep related leg cramps; I10 Essential (primary) hypertension
CPT/HCPCS: 36415; 80053; 80061; 82607; 82728; 83540; 83721; 84443; 84466; 85025

== ENCOUNTER 2022-08-16 15:08 | Outpatient (CLI) | payer MEDICAID ==
[2022-08-16 17:56] LABS: CALCIUM 9.9 mg/dL (8.5-10.3); POTASSIUM 4.9 mmol/L (3.5-5.0)
== END 2022-08-16 15:09 | disposition home or self-care (01) ==
LOC: LAB.N 15:08
PROVIDERS: ATTEND Physician Assistant
DX: I10 Essential (primary) hypertension (principal)
CPT/HCPCS: 36415; 80048

== ENCOUNTER 2022-09-07 13:00 | Outpatient (CLI) | payer MEDICAID ==
[2022-09-07 18:12] LABS: CALCIUM 9.5 mg/dL (8.5-10.3); POTASSIUM 4.4 mmol/L (3.5-5.0)
[2022-09-08 15:09] LABS: OSMOLALITY 301 mOsmol/kg (275-295); OSMOLALITY URINE 558 mOsmol/kg (.)
== END 2022-09-07 13:01 | disposition home or self-care (01) ==
LOC: LAB.N 13:00
PROVIDERS: ATTEND Physician Assistant
DX: R94.4 Abnormal results of kidney function studies (principal)
CPT/HCPCS: 36415; 80048; 83930; 83935; 84300

== ENCOUNTER 2022-11-24 12:53 | Outpatient (CLI) | payer OTHER ==
--- NOTE | 2022-11-24 14:20 | SLEEP CARE CONSULTATION ---
Information from patient questionnaire entered by Patrick Robertson. I have reviewed and concur with the information entered by Patrick Robertson. This document represents the service I personally performed and the decisions made by me, Jennifer Powers ARNP. History of Present Illness Service Date and Time: 11/24/2022 1253 Reason for Visit: New patient Chief Complaint: reports: Unrefreshed sleep, Snoring, Excessive daytime sleepiness, Observed pauses in breathing, Fatigue, Frequent awakenings at night, Other (Symptoms previous to BIPAP) Usual bedtime: 11 Time it takes to fall asleep: 5-10MIN Snores at night: Yes Observed to quit breathing while asleep: No Number of times waking at night: 5-6 Reasons for waking at night: reports: Pain Toss, Turn, or Twitch while sleeping: Yes Recalls having dreams: Yes Usually gets out of bed at: 9AM Feels refreshed in the morning: Yes Morning headache: No Sleepy or fatigued during the day: No Ever fallen asleep while driving: No Takes day naps: Yes Dreams during day naps: Yes Prior sleep studies: No Additional HPI information: I had the pleasure of seeing ANDERSON RUSHING today regarding the possibility of her having a sleep disorder. She has been on a ResMed Astral 150 machine for last 2 years. She was on oxygen through the machine but has not been on oxygen since March for during the day and nocturnally about July-August 2022. Her current complaints are before using the machine she had excessive daytime sleepiness, fatigue, frequent night awakenings, pauses in breathing, snoring and unrefreshed sleep. She was diagnosed with CHF and in the hospital where they placed her on a breathing machine and 2 years ago she has been using the current ResMed Astral 150 set as a BIPAP for the last year. - Parasomnia Symptoms Ever been unable to move upon waking from sleep: No Walks in sleep: No Talks in sleep: No Ever acted out dreams in sleep: No Ever felt weak in the knees when startled or emotional: No Bothered by creepy, crawly, restless sensations in legs: No Problems with memory or concentration: No CPAP Compliance Data Compliance data discussion: She is using the ResMed Astral 150 nightly. She is using a full face ResMed AirTouch for her, F20. She is getting her supplies from [employer]. She does have a back up mask if needed. Subjective Patient concerns: reports: dry mouth, nose, throat (sometimes, mouth breather). denies: aerophagia, mask discomfort, air blowing in eyes, mask leak noise, condensation in mask/hose, nasal congestion, epistaxis Observed to snore while using device: No Current pressure setting perceived as: comfortable On therapy, patient: reports: sleeping better, awakening more refreshed, being more awake and alert during the day, more rested overall. 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 Patient is Single and lives in [place]. Have you smoked in the past 12 months: No Cigarettes per day (20/pack): 20 Years of smokin Smoking Pack Years: 20.0 Alcohol use: Yes Alcohol amount and frequency: 1 OCCASSIONALLY Caffeine use: Yes Caffeine amount and frequency: 20 0Z DAILY Family History Family history of sleep disordered breathing: No Allergies and Home Medications Known drug allergies: No Drug allergies reviewed: Yes Home medication list reviewed: Yes (as listed) Allergy and home medication list: Allergies No Known Drug Allergies Allergy (Verified 11/23/22 09:21) Home Medications Medication Instructions Recorded Confirmed Last Taken Type Aspirin [Isabella Aspirin] 81 mg PO DAILY 02/04/21 07/23/21 Unknown History Losartan Potassium [Cozaar] 100 mg PO DAILY 02/04/21 07/23/21 Unknown History [place]-3/Dha/Epa/Fish Oil [Fish Oil 1 cap PO BID 02/04/21 07/23/21 Unknown History 1,000 mg Softgel] Cholecalciferol (Vitamin D3) 50 mcg PO DAILY 03/22/21 07/23/21 Unknown History [Vitamin D3] Hydralazine HCl 100 mg PO TID 07/23/21 07/23/21 Unknown History carvediloL [Coreg] 25 mg PO BID 07/23/21 07/23/21 Unknown History Ferrous Gluconate [Fergon] 324 mg PO DAILYWM #30 tablet 07/30/21 Unknown Rx Furosemide [Lasix] 40 mg PO DAILY #30 tablet 07/30/21 Unknown Rx Cyanocobalamin (Vitamin B-12) See Rx Instructions .ROUTE .COMPLEX 11/24/22 11/24/22 Unknown History [Vitamin B12] Magnesium See Rx Instructions .ROUTE .COMPLEX 11/24/22 11/24/22 Unknown History Rosuvastatin Calcium [Crestor] See Rx Instructions .ROUTE .COMPLEX 11/24/22 11/24/22 Unknown History Review of Systems Weight loss over past 5 years: 50, after 100 lb gain in last 5 years Cardiovascular: reports: high blood pressure, palpitations, leg or foot swelling Respiratory: reports: chronic cough Gastrointestinal: denies: heartburn Neurological: reports: headaches Psychiatric: denies: anxiety, depression Ear/Nose/Throat: denies: tonsillectomy Endocrine: denies: thyroid disease Physical Exam Vital signs obtained and entered by: PATRICK Castillo MA Blood Pressure: 145/86 (LEFT) Cuff size: wrist Heart Rate: 59 O2 Saturation: 95 Height: 5 ft 2 in Weight: 346 lb 12.8 oz Body Mass Index: 63.4 BMI Classification: Morbidly Obese Neck circumference: 16.5 Mouth and throat: narrow oropharynx Soft palate: long Hard palate: normal Uvula: normal Uvula visualization: 25% Mallampati Class III Tongue: enlarged in size with teeth verma on lateral edges Tonsils: small Neck: normal w/o lymphadenopathy or thyromegaly Heart: regular rate and rhythm Lungs: clear bilaterally Impression and Plan 1. Obstructive Sleep Apnea-Hypopnea Syndrome, unknown, with unknown treatment compliance and unknown apnea control. She tells me that the machine she is using is set as a BIPAP. On BIPAP therapy, the patient has better sleep quality and is more rested overall. She does not have a copy of the diagnosis/sleep study. She just got her machine replaced last year through [employer]. If we are able to obtain a copy of the sleep study then we will just update her supplies. If not, I recommend proceeding to polysomnography to confirm the diagnosis and to assess severity. I obtained agreement to proceed. Patient's apnea severity and rationale for treatment to reduce apnea, improve sleep quality and reduce cardiovascular and cerebrovascular events was reviewed. I also reviewed the benefit of consistent device use of BIPAP for hypertension and cardiac disease (CHF). 2. Obesity, Morbid. Currently patients BMI is 63.4. Obesity increases the risk of apnea, BIPAP pressure requirements and overall health risks especially cardiovascular and diabetes. Thus patient is advised to lose weight. * Continue BIPAP pressure at unknown cmH2O * PSG to verify diagnosis and severity if unable to get records * Update supplies when able * Notify me if snoring with mask or feeling that the pressure is too much or too little * Attempt to lose weight * Call this office if any problems using BIPAP * Return for follow up after sleep study, or sooner if concerns arise Counseling Topics: Weight loss health impact Visit Type: In Office Time Spent with Patient (minutes): 42 Provider Statement: I spent 100% of the Face to Face Visit with the patient with greater than 50% spent counseling the patient and coordination of care.
[2022-11-24 14:25] VITALS: BP 145/86; O2SAT 95
== END 2022-11-24 12:54 | disposition home or self-care (01) ==
LOC: SC 12:53
PROVIDERS: ATTEND Nurse Practitioner Family
DX: G47.33 Obstructive sleep apnea (adult) (pediatric) (principal); I11.0 Hypertensive heart disease with heart failure; F17.210 Nicotine dependence, cigarettes, uncomplicated; E66.01 Morbid (severe) obesity due to excess calories; Z68.44 Body mass index [BMI] 60.0-69.9, adult
CPT/HCPCS: 99203; 99212

== ENCOUNTER 2022-12-18 12:24 | Outpatient (CLI) | payer OTHER | END 2022-12-18 12:25 | disposition home or self-care (01) | LOC: SC 12:24 | PROVIDERS: ATTEND Nurse Practitioner Family | DX: G47.33 Obstructive sleep apnea (adult) (pediatric) (principal); I11.9 Hypertensive heart disease without heart failure; E66.01 Morbid (severe) obesity due to excess calories; Z68.43 Body mass index [BMI] 50.0-59.9, adult; R09.02 Hypoxemia | CPT/HCPCS: 95806 ==

== ENCOUNTER 2023-01-12 17:01 | Outpatient (CLI) | payer OTHER ==
--- NOTE | 2023-01-14 16:08 | Ultrasound Report ---
PROCEDURE: Carotid Doppler Complete INDICATIONS: ABN HEAD XRAY TECHNIQUE: Color and pulse Doppler interrogation was performed of both carotid systems, with image documentation and velocity measurements. COMPARISON: None. FINDINGS: Right side: Brachial blood pressure: 74/83 mm Hg. Common carotid artery peak systolic velocity: 47.98 cm/sec. Internal carotid artery peak systolic velocity: 55.45 cm/sec. Internal carotid artery end diastolic velocity: 15.5 cm/sec. External carotid artery peak systolic velocity: 59.3 cm/sec. ICA/CCA peak systolic ratio: 1.2 . Carrion scale imaging description: Dense atheromatous plaque and calcification is present at the bifurc ation. Percent internal carotid artery stenosis: Less than 50 percent stenosis. Vertebral artery: Flow direction is antegrade. Left side: Brachial blood pressure: 159/69 mm Hg. Common carotid artery peak systolic velocity: 74.8 cm/sec. Internal carotid artery peak systolic velocity: 118.4 cm/sec. Internal carotid artery end diastolic velocity: 36.38 cm/sec. External carotid artery peak systolic velocity: 61.80 cm/sec. ICA/CCA peak systolic ratio: 1.6 . Carrion scale imaging description: Atheromatous plaque is present throughout the carotid bifurcation. Percent internal carotid artery stenosis: Less than 50 percent stenosis. Vertebral artery: Flow direction is antegrade. IMPRESSION: 1. In the right internal carotid artery, there is less than 50 percent stenosis based on peak systoli c velocity criteria. 2. In the left internal carotid artery, there is less than 50 percent stenosis based on peak systolic velocity criteria. 3. Antegrade blood flow within the right vertebral artery. 4. Antegrade blood flow within the left vertebral artery. The estimate of stenosis included in the report of the imaging study was calculated using the [facility]-end orsed standards of carotid artery stenosis. Reviewed by: Ysabel Velez MD on 01/14/2023 4:07 PM PST Approved by: Ysabel Velez MD on 01/14/2023 4:07 PM PST Station ID: [id number]
== END 2023-01-12 17:02 | disposition home or self-care (01) ==
LOC: DI 17:01
PROVIDERS: ATTEND Physician Assistant
DX: I65.23 Occlusion and stenosis of bilateral carotid arteries (principal)
CPT/HCPCS: 93880

== ENCOUNTER 2023-05-23 11:04 | Outpatient (CLI) | payer OTHER ==
--- NOTE | 2023-05-23 11:49 | Sleep Patient Instructions ---
Sleep Center Visit Summary - Patient Visit Information Reason for Visit: 4-month follow-up - Patient Instructions Additional Instructions: You will be completing a titration sleep study in our sleep lab where you will be sleeping with the CPAP machine on and we will be adjusting your pressures to find your optimal pressure settings. Once we have your results back, we will call you and schedule a follow up to go over the results. You will be called by our office staff to schedule your follow up, but you may contact us with any questions or issue as needed. - Clinic Information Contact: [facility] [address] [place] [address] [email or web address] T: [phone]
--- NOTE | 2023-05-23 11:54 | SLEEP CARE CONSULTATION ---
Information from patient questionnaire entered by Francine Robertson. I have reviewed and concur with the information entered by Francine Robertson. This document represents the service I personally performed and the decisions made by , Jennifer Powers ARNP. History of Present Illness Service Date and Time: 05/23/2023 1104 Previous diagnosis: Mild, Obstructive Sleep Apnea-Hypopnea Syndrome AHI: 12.5 (12/24/22) Reason for follow up: other (4 MONTH F/U INTERESTED IN CPAP) Equipment type: CPAP (Astral 150) Equipment obtained from: [employer] Mask style: Full face Backup mask available: Yes Last cushion change: 3 weeks Prior sleep studies: No Type of Sleep Study: Polysomnography (COMPLETED 12/24/22) HPI additional information: ANDERSON RUSHING was diagnosed to have mild, AHI 12.5, obstructive sleep apnea- hypopnea syndrome and returned today for CPAP therapy four months follow-up. Sleep Study - Results Type of Sleep Study: Polysomnography (COMPLETED 12/24/22) Prior sleep studies: No CPAP Compliance Data - Data Reviewed with Patient Current pressure setting (cmH2O): Astral 150 Compliance data discussion: She is using her Astral 150 every night. The machine has to be downloaded manually and there has not been a current download completed. Subjective Patient concerns: denies: aerophagia, mask discomfort, air blowing in eyes, mask leak noise, condensation in mask/hose, nasal congestion, dry mouth, nose, throat, epistaxis Observed to snore while using device: No Current pressure setting perceived as: comfortable On therapy, patient: reports: sleeping better, awakening more refreshed, being more awake and alert during the day, more rested overall. denies: drowsiness while driving Initial [place] Sleepiness Scale score: 6 (11/21/22) Current [place] Sleepiness Scale score: 7 (05/23/23) Allergies and Home Medications Known drug allergies: No Drug allergies reviewed: Yes Home medication list reviewed: Yes (no changes) Allergy and home medication list: Allergies No Known Drug Allergies Allergy (Verified 05/21/23 10:01) Review of Systems Review of systems same as previous: Yes (NO CHANGE) Physical Exam Vital signs obtained and entered by: FRANCINE Castillo MA Blood Pressure: 160/83 (RIGHT ARM) Cuff size: long Heart Rate: 52 O2 Saturation: 95 Height: 5 ft 2 in Weight: 362 lb 10.72 oz Body Mass Index: 66.3 BMI Classification: Morbidly Obese Impression and Plan 1. Obstructive Sleep Apnea-Hypopnea Syndrome, mild. On CPAP therapy, the patient has better sleep quality and is more rested overall. Patient has questions about if she should be using a CPAP or BIPAP machine. She is paying a large copay monthly for rental of her Astral 150. She is not longer on oxygen at all. She is comfortable looking at changing to another device that will work as well as the Astral 150. Patient's apnea severity and rationale for treatment to reduce ap amy, improve sleep quality and reduce cardiovascular and cerebrovascular events was reviewed. I also reviewed the benefit of consistent device use of CPAP for hypertension, cardiac disease (CHF). 2. Obesity, unspecified. Currently patients BMI is 66.3. Obesity increases the risk of apnea, CPAP pressure requirements and overall health risks especially cardiovascular and diabetes. Thus patient is advised to continue to try to lose weight. * Continue Astral 150 as set up * Titration study * Notify me if snoring with mask or feeling that the pressure is too much or too little * Attempt to lose weight * Call this office if any problems using CPAP * Return for follow up after titration study, or sooner if concerns arise Counseling Topics: Spare mask, Weight loss health impact Follow up with Sleep Care in: other (after titration study) Plan: Titration study Visit Type: In Office Time Spent with Patient (minutes): 20 Provider Statement: I spent 100% of the Face to Face Visit with the patient with greater than 50% spent counseling the patient and coordination of care.
[2023-05-23 12:03] VITALS: BP 160/83; O2SAT 95
== END 2023-05-23 11:05 | disposition home or self-care (01) ==
LOC: SC 11:04
PROVIDERS: ATTEND Nurse Practitioner Family
DX: G47.33 Obstructive sleep apnea (adult) (pediatric) (principal); E66.01 Morbid (severe) obesity due to excess calories; Z68.44 Body mass index [BMI] 60.0-69.9, adult
CPT/HCPCS: 99212; 99213

== ENCOUNTER 2023-06-05 19:47 | Outpatient (CLI) | payer OTHER | END 2023-06-05 19:48 | disposition home or self-care (01) | LOC: SC 19:47 | PROVIDERS: ATTEND Nurse Practitioner Family | DX: G47.33 Obstructive sleep apnea (adult) (pediatric) (principal) | CPT/HCPCS: 95811 ==

== ENCOUNTER 2023-07-10 13:51 | Outpatient (CLI) | payer OTHER ==
--- NOTE | 2023-07-10 13:48 | SLEEP CARE CONSULTATION ---
Information from patient questionnaire entered by Francine Robertson. I have reviewed and concur with the information entered by Francine Robertson. This document represents the service I personally performed and the decisions made by , Jennifer Powers ARNP. History of Present Illness Service Date and Time: 07/10/2023 1340 Initial [place] Sleepiness Scale score: 6 (11/21/22) Current [place] Sleepiness Scale score: 5 Additional HPI information: ANDERSON YostRuchi СЕРГЕЙ returns via video appointment for follow up of a manual CPAP titration study performed on 06/05/23. Previous study done on 12/18/22 showed mild obstructive sleep apnea with AHI 12.5. The patient was informed of the following polysomnography findings: CPAP was initiated at 10 cmH2O and titrated up to CPAP at 13 cmH2O. CPAP at 11 cmH2O appeared to be optimal (AHI of 0 per hour on the pressure). There was REM sleep on the pressure. The patient did not sleep supine during this study. Oxygen saturation was mildly low. Lower CPAP settings appeared adequate as well. The patient appeared to have tolerated positive airway pressure therapy fairly well. The patients sleep efficiency was reduced due several prolonged awakenings during the night. Her apnea appeared to be adequately controlled with CPAP at 11 cmH2O. AutoCPAP set between 8 and 13 cmH20 was also noted as appropriate. I explained how CPAP machine works and what to expect when using the machine. Using CPAP every night in order to get used to it was emphasized. Patient counseled not drink alcohol less than 4 hours before bedtime as it can increase snoring and apnea. Patient was cautioned about risks of drowsy driving until sleepiness symptoms resolve. Patient denies drowsy driving. Sleep Study - Results Type of Sleep Study: Polysomnography (COMPLETED 12/24/22 TITRATION COMPLETED 06/05/23) Prior sleep studies: No Polysomnography/Home Sleep Study results: IMPRESSION: The quality of the study is good. CPAP was initiated at 10 cmH2O and titrated up to CPAP at 13 cmH2O. CPAP at 11 cmH2O appeared to be optimal (AHI of 0 per hour on the pressure). There was REM sleep on the pressure. The patient did not sleep supine during this study. Oxygen saturation was mildly low. Lower CPAP settings appeared adequate as well. The patient appeared to have tolerated positive airway pressure therapy fairly well. The patients sleep efficiency was reduced due several prolonged awakenings during the night. The sleep architecture was abnormal for sleep fragmentation and reduced amount of time s pent in REM sleep. There was no significant periodic leg movement of sleep. Cardiac rhythm was normal sinus rhythm without significant arrhythmia. No abnormal behavior (parasomnia) observed during the night. CONCLUSIONS and RECOMMENDATIONS: 1. Obstructive sleep apnea-hypopnea (ICD-10 G47.33), mild (AHI was 12.5), adequately controlled with CPAP at 11 cmH2O. CPAP therapy is, therefore, recommended at the pressure setting. AutoCPAP set between 8 and 13 cmH20 is also appropriate. Mask used was a ResMed AirTouch F-20 for Her full face mask. With BMI of 59.4 Kg/M2 , weight loss is also recommended. Allergies and Home Medications Known drug allergies: No Drug allergies reviewed: Yes Home medication list reviewed: Yes (no changes) Allergy and home medication list: Allergies No Known Drug Allergies Allergy (Verified 07/05/23 15:37) Review of Systems Review of systems same as previous: Yes (no changes) Physical Exam Vital signs obtained and entered by: JENNIFER CASTILLO Height: 5 ft 2 in Weight: 352 lb (per pt) Weight change since last visit: 10 lb loss Body Mass Index: 64.3 BMI Classification: Morbidly Obese Impression and Plan 1. Obstructive Sleep Apnea-Hypopnea Syndrome, mild. Patient returns to office after CPAP titration study to be set up on therapy. Positive pressure therapy could benefit hypertension and cardiac disease (CHF). The patient will be changed to nasal autoCPAP therapy with pressure set at 8-13 cmH2O. Compliance guidelines also reviewed. A copy of compliance guidelines will be given for reference at check out. Patient is to call to set up the compliance visit when she has her new CPAP. She is to call us if she has any issues. 2. Obesity, unspecified. Currently patients BMI is 64.3. Obesity increases the risk of apnea, CPAP pressure requirements and overall health risks especially cardiovascular and diabetes. Thus patient is advised to continue to try to lose weight. * Discontinue Astral 150 * Start Nasal auto CPAP therapy, pressure at 8-13 cm H2O. * Continue to try to lose weight. * Avoid alcohol consumption near bedtime. * Return one month after CPAP obtained. I will assess response to therapy and compliance at that time. Counseling Topics: Weight loss health impact Prescriptions: Auto CPAP, Device supplies Follow up with Sleep Care in: other (compliance) Visit Type: Telehealth Video Video Type: Doximity Patient Location: Home Location of Provider: Office Time Spent with Patient (minutes): 16 Provider Statement: I spent 100% of the Telehealth Video Call with the patient with greater than 50% spent counseling the patient and coordination of care.
== END 2023-07-10 13:52 | disposition home or self-care (01) ==
LOC: SC 13:51
PROVIDERS: ATTEND Nurse Practitioner Family
DX: G47.33 Obstructive sleep apnea (adult) (pediatric) (principal); E66.01 Morbid (severe) obesity due to excess calories; Z68.44 Body mass index [BMI] 60.0-69.9, adult

== ENCOUNTER 2023-09-05 09:20 | Outpatient (CLI) | payer MEDICARE, OTHER ==
--- NOTE | 2023-09-05 09:40 | Sleep Patient Instructions ---
Sleep Center Visit Summary - Patient Visit Information Reason for Visit: First compliance follow-up with new device - Patient Instructions Additional Instructions: You were here for follow up of CPAP therapy. You will be continued on CPAP therapy with pressure at 8-13 cmH2O. You should follow up with sleep care in 3 months. You may contact us sooner for any questions or concerns. - Clinic Information Contact: [facility] [address] [place] [id number] [email or web address] T: [phone]
--- NOTE | 2023-09-05 09:44 | SLEEP CARE CONSULTATION ---
Information from patient questionnaire entered by Francine Robertson. I have reviewed and concur with the information entered by Francine Robertson. This document represents the service I personally performed and the decisions made by , Jennifer Powers ARNP. History of Present Illness Service Date and Time: 09/05/2023 09 Previous diagnosis: Mild, Obstructive Sleep Apnea-Hypopnea Syndrome AHI: 12.5 (12/24/22) Reason for follow up: first compliance (NEED MACHINE) Equipment type: CPAP (ResMed Airsense 10, s/u 07/27/2023) Equipment obtained from: [employer] ([employer] supplies) Mask style: Full face Mask brand: Resmed (AirTouch F20) Backup mask available: Yes Last cushion change: 1 month Prior sleep studies: No Type of Sleep Study: Polysomnography (COMPLETED 12/24/22 TITRATION COMPLETED 06/05/23) HPI additional information: SHANIQUA RUSHING was diagnosed to have mild, AHI 12.5, obstructive sleep apnea- hypopnea syndrome and returned today for CPAP therapy first compliance follow- up. Sleep Study - Results Type of Sleep Study: Polysomnography (COMPLETED 12/24/22 TITRATION COMPLETED 06/05/23) Prior sleep studies: No CPAP Compliance Data - Data Reviewed with Patient Average duration of nightly device use: 7 hours 12 minutes Compliance rate %: 90 ( days used) Current pressure setting (cmH2O): 8-13 Average residual AHI: 0.2 Central apnea: 0 Obstructive apnea: 0.1 Hypopnea: 0.1 Average large leak: 13.2 L/min Subjective Patient concerns: denies: aerophagia, mask discomfort, air blowing in eyes, mask leak noise, condensation in mask/hose, nasal congestion, dry mouth, nose, throat, epistaxis Observed to snore while using device: No Current pressure setting perceived as: comfortable On therapy, patient: reports: sleeping better, awakening more refreshed, being m ore awake and alert during the day, more rested overall. denies: drowsiness while driving Initial [place] Sleepiness Scale score: 6 (11/21/22) Current [place] Sleepiness Scale score: 3 (09/05/23) Allergies and Home Medications Known drug allergies: No Drug allergies reviewed: Yes Home medication list reviewed: Yes (no changes) Allergy and home medication list: Allergies No Known Drug Allergies Allergy (Verified 09/03/23 11:06) Review of Systems Review of systems same as previous: Yes (NO CHANGE) Physical Exam Vital signs obtained and entered by: FRANCINE Castillo MA Blood Pressure: 146/76 (LEFT ) Cuff size: wrist Heart Rate: 61 O2 Saturation: 94 Height: 5 ft 2 in Weight: 364 lb 6.4 oz Body Mass Index: 66.6 BMI Classification: Morbidly Obese Impression and Plan 1. Obstructive Sleep Apnea-Hypopnea Syndrome, mild, with good treatment compliance and good apnea control. On CPAP therapy, the patient has better sleep quality and is more rested overall. Shaniqua is very happy with her new CPAP. Patient has significant improvement of her sleep apnea and is comfortable with CPAP use. Patient denies problems with oral dryness, nasal congestion, epistaxis, skin irritation or aerophagia. I will have her follow-up in about 3 months. Patient's apnea severity and rationale for treatment to reduce apnea, improve sleep quality and reduce cardiovascular and cerebrovascular events was reviewed. I also reviewed the benefit of consistent device use of CPAP for hypertension, cardiac disease (CHF). 2. Obesity, unspecified. Currently patients BMI is 66.6. Obesity increases the risk of apnea, CPAP pressure requirements and overall health risks especially cardiovascular and diabetes. Thus patient is advised to lose weight. * Continue auto CPAP pressure at 8-13 cmH2O * Notify me if snoring with mask or feeling that the pressure is too much or too little * Attempt to lose weight * Call this office if any problems using CPAP * Return for follow up in 3 months, or sooner if concerns arise Counseling Topics: Spare mask, Weight loss health impact Follow up with Sleep Care in: 3 months Visit Type: In Office Time Spent with Patient (minutes): 20 Provider Statement: I spent 100% of the Face to Face Visit with the patient with greater than 50% spent counseling the patient and coordination of care.
[2023-09-05 10:09] VITALS: BP 146/76; O2SAT 94
== END 2023-09-05 09:21 | disposition home or self-care (01) ==
LOC: SC 09:20
PROVIDERS: ATTEND Nurse Practitioner Family
DX: G47.33 Obstructive sleep apnea (adult) (pediatric) (principal); E66.01 Morbid (severe) obesity due to excess calories; Z68.44 Body mass index [BMI] 60.0-69.9, adult
CPT/HCPCS: 99213; G0463; 99212

== ENCOUNTER 2023-09-11 08:13 | Outpatient (CLI) | payer MEDICARE ==
[2023-09-11 12:10] LABS: BASOPHILS # (AUTO) 0.1 10^3/uL (0.0-0.1); EOSINOPHILS # (AUTO) 0.1 10^3/uL (0.0-0.7); EOSINOPHILS % (AUTO) 2.5 %; HCT - HEMATOCRIT 38.4 % (37.0-47.0); HGB - HEMOGLOBIN 12.1 g/dL (12.0-16.0); LYMPHOCYTES # (AUTO) 1.2 10^3/uL (1.5-3.5); MEAN CORPUSCULAR HEMOGLOBIN 30.6 pg (27.0-31.0); MEAN CORPUSCULAR HGB CONC 31.5 g/dL (32.0-36.0); MEAN PLATELET VOLUME 9.7 fL (7.9-10.8); MONOCYTES # (AUTO) 0.8 10^3/uL (0.0-1.0); MONOCYTES % (AUTO) 14.6 %; NEUTROPHILS % (AUTO) 58.7 %; PLT - PLATELET COUNT 256 10^3/uL (130-450); RED BLOOD COUNT 3.96 10^6/uL (4.20-5.40); RED CELL DISTRIBUTION WIDTH 13.8 % (12.0-15.0); WHITE BLOOD COUNT 5.1 x10^3/uL (4.8-10.8)
[2023-09-11 12:26] LABS: BUN - BLOOD UREA NITROGEN 36 mg/dL (6-20); CALCIUM 9.9 mg/dL (8.5-10.3); CARBON DIOXIDE - CO2 26 mmol/L (21-32); CHLORIDE 107 mmol/L (101-111); CHOL/HDL RATIO 3.3 (<4.4); CHOLESTEROL 141 mg/dL; CREATININE 1.3 mg/dL (0.6-1.3); GFR - MDRD 42 (>89); GLUCOSE 101 mg/dL (74-104); HDL CHOLESTEROL 43 mg/dL; LDL CHOLESTEROL,CALCULATED 80 mg/dL; LDL/HDL RATIO 1.9 (<4.4); POTASSIUM 4.9 mmol/L (3.5-4.5); SODIUM 140 mmol/L (135-145); TRIGLYCERIDES 88 mg/dL (48-352); VLDL CHOLESTEROL 18 mg/dL
== END 2023-09-11 08:14 | disposition home or self-care (01) ==
LOC: LAB.N 08:13
PROVIDERS: ATTEND Internal Medicine Cardiovascular Disease
DX: I10 Essential (primary) hypertension (principal)
CPT/HCPCS: 36415; 80048; 80061; 83721; 85025